=== PATIENT | female | born 1940 | race Caucasian/White ===

== ENCOUNTER 2018-06-18 12:37 | Inpatient (IN) | payer MEDICARE, OTHER ==
[~2018-06-18] VITALS: Ht 152.4 cm; Wt 53.0 kg
[2018-06-18] MEDS ORDERED: LACTULOSE 30ML CUP PO PRN (19:00)
[2018-06-18] MEDS ORDERED: BISACODYL 10 MG SUPP PR PRN (19:00)
[2018-06-18] MEDS ORDERED: PENDING SANTYL ORDER FOR WOUND CARE XX PRN (19:00)
[2018-06-18 19:08] VITALS: BP 147/68; PULSE 95; RESP 18
[2018-06-18] MEDS ORDERED: METOPROLOL 5 MG INJ IV PRN (20:00)
[2018-06-18] MEDS ORDERED: LORAZEPAM 2 MG INJ IV PRN (20:00)
[2018-06-18] MEDS ORDERED: COLLAGENASE 5 GM (UD JAR) TOP PRN (20:00)
[2018-06-18] MEDS ORDERED: ALBUTEROL/IPRATROPIUM (NEB) 3 ML AMP HHN PRN (20:00)
[2018-06-18] MEDS ORDERED: DIPHENHYDRAMINE 50 MG INJ IV PRN (20:00)
[2018-06-18] MEDS ORDERED: GUAIFENESIN 20 MG/ML 5ML CUP PO PRN (20:00)
[2018-06-18] MEDS ORDERED: NITROGLYCERIN 2% 1 GM OINT PKT TD PRN (20:00)
[2018-06-18] MEDS ORDERED: morphine 2 MG INJ IV PRN (20:00)
[2018-06-18] MEDS ORDERED: ONDANSETRON 4 MG INJ IV PRN (20:00)
[2018-06-18] MEDS ORDERED: NYSTATIN 30 GM POWDER BTL TOP PRN (20:00)
[2018-06-18] MEDS ORDERED: PETROLATUM 28.35 GM JELLY TOP PRN (20:30)
[2018-06-18] MEDS: DOCUSATE SODIUM 100 MG CAP PO SCH (21:00)
[2018-06-18] MEDS: INSULIN ASPART [NOVOLOG] 3 ML PEN SC SCH (21:00)
[2018-06-18] MEDS ORDERED: VITAMIN A & D 5 GM OINT PACKET TOP SCH (21:00)
[2018-06-18] MEDS: SENNA TAB PO SCH (21:00)
[2018-06-18] MEDS ORDERED: GLUCOSE GEL 15 GRAM TUBE BUCCAL PRN (21:30)
[2018-06-18] MEDS ORDERED: DEXTROSE 50% 50 ML SYRINGE IV PRN ×2 (21:30)
[2018-06-18] MEDS ORDERED: GLUCOSE GEL 15 GRAM TUBE PO PRN ×2 (21:30)
[2018-06-18] MEDS ORDERED: GLUCAGON 1 MG INJ IM PRN (21:30)
[2018-06-18] MEDS: LACTOBACILLUS RHAMNOSUS CAP PO SCH (21:37)
[2018-06-18] MEDS: ALBUTEROL/IPRATROPIUM (NEB) 3 ML AMP HHN SCH (21:39)
[2018-06-18] MEDS: PETROLATUM 28.35 GM JELLY TOP SCH (21:45)
[2018-06-18] MEDS: COLLAGENASE 5 GM (UD JAR) TOP SCH (21:48)
[2018-06-18] MEDS: DESMOPRESSIN 0.01% 5 ML NASAL NASAL SCH (22:00)
[2018-06-18] MEDS: AMOXICILLIN (50 MG/ML PO SYG) PO SCH (22:49)
[2018-06-18] MEDS: NYSTATIN 30 GM POWDER BTL TOP SCH (22:49)
[2018-06-19] MEDS: ALBUTEROL/IPRATROPIUM (NEB) 3 ML AMP HHN SCH ×4 (01:53→19:33)
[2018-06-19 02:00] VITALS: BP 138/65; PULSE 90; RESP 18
[2018-06-19] MEDS: LANSOPRAZOLE 30 MG CAP PO SCH (06:52)
[2018-06-19] MEDS: LEVOTHYROXINE 50 MCG TAB PO SCH (06:53)
[2018-06-19 07:00] VITALS: BP 136/52; PULSE 97; RESP 18
[2018-06-19] MEDS: SEVELAMER CARBONATE 0.8 GM PKT PO SCH ×3 (08:53→17:59)
[2018-06-19] MEDS: CALCIUM ACETATE 667 MG CAP PO SCH ×3 (08:54→17:59)
[2018-06-19] MEDS: DESMOPRESSIN 0.01% 5 ML NASAL NASAL SCH ×2 (08:54→21:00)
[2018-06-19] MEDS: VITAMIN B COMPLEX/VIT C CAP PO SCH (08:54)
[2018-06-19] MEDS: FLUCONAZOLE 100 MG TAB PO SCH (08:54)
[2018-06-19] MEDS: LACTOBACILLUS RHAMNOSUS CAP PO SCH ×2 (08:55→21:04)
[2018-06-19] MEDS: AMLODIPINE 5 MG TAB PO SCH (08:55)
[2018-06-19] MEDS: FOLIC ACID 1 MG TAB PO SCH (08:55)
[2018-06-19] MEDS: DOCUSATE SODIUM 100 MG CAP PO SCH ×2 (08:55→21:04)
[2018-06-19] MEDS: SERTRALINE 50 MG TAB PO SCH (08:55)
[2018-06-19] MEDS: NEBIVOLOL 5 MG TAB PO SCH (08:56)
[2018-06-19] MEDS: COLLAGENASE 5 GM (UD JAR) TOP SCH ×2 (09:03→21:23)
[2018-06-19] MEDS: PETROLATUM 28.35 GM JELLY TOP SCH ×2 (09:03→21:32)
[2018-06-19] MEDS: INSULIN ASPART [NOVOLOG] 3 ML PEN SC SCH ×4 (09:14→21:00)
[2018-06-19] MEDS: AMOXICILLIN (50 MG/ML PO SYG) PO SCH ×2 (10:44→21:13)
--- NOTE | 2018-06-19 10:51 | HP ---
DATE OF ADMISSION: 06/18/2018 CHIEF COMPLAINT: Critical care myopathy, respiratory failure, end-stage renal disease, UTI. HISTORY OF PRESENT ILLNESS: This is a 78-year-old female with a past medical history of diabetes, hy pertension, history of CKD stage IV/V, who was initially admitted to outside hospital in [facility]. The patient during that admission was diagnosed with pneumonia, was in CHF and heart fail ure. The patient, while in [place], was initiated on hemodialysis. The patient had a recent AV fistu la placed in the left upper extremity in preparation for dialysis. However, the patient was not init iated on dialysis prior to admission to [facility]. While in [place], the patient was also treat ed with antibiotics, steroids. The patient, however, had a decline in her respiratory status, requir ing intubation. The patient was eventually extubated and was transferred to [facility] for continued care. While in [place], the patient continued antibiotic therapy for pneumonia. The patient was also diagnosed with urinary tract infection. The patient was also on intermittent dialys is during the course in [place]. The patient, however, had a significant decline in premorbid conditi ons. Also, the patient developed critical care myopathy during her hospital course and was evaluated and transferred to [facility] acute rehab for continued care. Please note, the patient while at [place] was also diagnosed with a right upper extremity DVT, felt to be secondary to IV line. The patient was seen by vascular surgeon. Recommendation was to monitor, to elevate the upper extremity. There was no plan for antiplatelet therapy as the patient has a prev ious history of GI bleeding and peptic ulcer disease. PAST MEDICAL HISTORY: See above. History of diabetes, hypertension, history of end-stage renal dise ase, history of anemia, mineral bone disorder, history of peptic ulcer disease. PAST SURGICAL HISTORY: Status post AV fistula. FAMILY HISTORY: No family history of kidney disease. SOCIAL HISTORY: Does not drink, smoke or do drugs. MEDICATIONS: The patient's medications have been reviewed. ALLERGIES: PLEASE SEE LIST. REVIEW OF SYSTEMS: A 14-point review of systems was conducted. Pertinent positives stated in the HP I, otherwise negative. PHYSICAL EXAMINATION: VITAL SIGNS: Blood pressure is 136/52, respirations 18, pulse 97, temperature 98.2. HEENT: Head is normocephalic. NECK: Supple. HEART: Regular rate. LUNGS: Show diminished breath sounds at the base. ABDOMEN: Soft, nontender to palpation. No rebound or guarding. EXTREMITIES: Negative for clubbing, cyanosis. Positive edema in the right upper extremity. DERMATOLOGIC: Positive ecchymoses. NEUROLOGIC: No focal deficits. The patient's medications have been reviewed. LABORATORY DATA: Shows sodium 138, potassium 3.6, BUN 61, creatinine 3.73. White count 4.6, hemoglo bin 8.6, platelet count 266. Urinalysis was reviewed. Noted pyuria. ASSESSMENT AND PLAN: This is a 78-year-old female who presents with: 1. Critical illness myopathy. Plan is for the patient to undergo physical therapy and occupational therapy. Will follow up per acute rehabilitation. 2. End-stage renal disease. Will continue the patient on intermittent hemodialysis. 3. Anemia. Monitor hemoglobin and hematocrit levels. Continue Epogen. 4. Mineral bone disorder. Monitor calcium and phosphorus levels. Continue phosphatase binders. 5. Right upper extremity deep venous thrombosis. The patient was seen by vascular surgery. No plan for anticoagulation at this time. Will continue to monitor. 6. Acute respiratory failure secondary to pneumonia. The patient is clinically improved. Continue to monitor. Continue bronchodilators. 7. History of heart failure. Continue medical management. Continue ultrafiltration dialysis. 8. Diabetes. Continue current insulin regimen. 9. Dysphagia. Continue modified diet. 10. Epistaxis secondary to uremia, improved. 11. Urinary tract infection. Continue current antibiotic regimen. 12. Gastrointestinal and deep venous thrombosis prophylaxis. Please note, I spent an additional 30 minutes in [id number] time discussing code status. The edison nt is FULL CODE. Dictated By: ARTHUR HUERTA DO NR/NTS Conf#: [id number] DID#: [id number] CC: KOLBY PEARSON MD;*EndCC*
--- NOTE | 2018-06-19 11:34 | CONS ---
DATE OF ADMISSION: 06/18/2018 DATE OF CONSULTATION: 06/19/2018 REHABILITATION POST ADMISSION PHYSICIAN EVALUATION REHABILITATION IMPAIRMENT CATEGORY: Critical illness myopathy. ACTIVE COMORBIDITIES: 1. Pulmonary debility status post acute respiratory failure, pneumonia status post intubation and extubation. 2. Status post CHF. 3. End-stage renal disease, on hemodialysis. 4. Dysphagia. 5. Diabetes mellitus. 6. Stage III sacral decubitus ulcer. 7. Impairments in self-care and mobility. HISTORY OF PRESENT ILLNESS: The patient is a pleasant 78-year-old female with a history of multiple medical comorbidities, who was initially admitted to [facility] for acute respiratory failure and pneumonia in addition to CHF. The patient did receive AV graft placement for left upper extremity dialysis, for which she began at [facility]. The patient's pulmonary status worsened and the patient did require intubation. The patient was eventually extubated. The patient was also followed closely for her dysphagia. The patient eventually was transferred to [facility] for continued care. The patient noted to have a generalized proximal weakness and presumed to have critical illness myopathy. The patient has now been cleared to transfer to the rehabilitation unit for comprehensive interdisciplinary rehab care. FUNCTIONAL HISTORY: Prior to recent events, she was independent in self-care tasks and mobility. Currently, she requires moderate assist for self-care and mobility tasks. FAMILY AND SOCIAL HISTORY: The patient lives at home with family in a first floor apartment and hopes to return there upon discharge. PAST MEDICAL HISTORY: 1. Diabetes mellitus type 2. 2. CHF. 3. Hypertension. 4. Chronic kidney disease with recent start of dialysis. 5. History of pneumonia. CURRENT MEDICATIONS: 1. Tylenol p.r.n. 2. Albuterol inhaler. 3. Norvasc 5 mg p.o. daily. 4. Amoxicillin. 5. PhosLo 667 mg with meals. 6. Catapres p.r.n. 7. Santyl topically. 8. DDAVP nasal spray. 9. Benadryl p.r.n. 10. Diflucan 100 mg p.o. daily. 11. Folic acid 1 mg p.o. daily. 12. Insulin sliding scale. 13. Prevacid 30 mg p.o. daily. 14. Synthroid 50 mcg p.o. q.a.m. 15. Lopressor 5 mg p.r.n. 16. Bystolic 5 mg p.o. daily. 17. Zoloft 50 mg p.o. daily. 18. Renvela 0.8 mg p.o. at bedtime. ALLERGIES: CLINDAMYCIN AND CLAVULANIC ACID AND AMOXICILLIN. PHYSICAL EXAMINATION: VITAL SIGNS: The patient is currently afebrile with stable vital signs. HEENT: Extraocular motion intact. Oropharynx clear. NECK: Supple. LUNGS: Clear anteriorly. CARDIAC: S1, S2. ABDOMEN: Soft, nontender, positive bowel sounds. NEUROLOGIC: She is awake and alert. She will follow simple 1-step commands. She demonstrates antigravity strength in bilateral upper extremity and lower extremity. PLAN: The patient has been admitted for comprehensive interdisciplinary acute rehab and is anticipated to tolerate 3 hours of daily therapy in divided doses for at least 5/7 days a week. The treatment plan will include: 1. Physical therapy to focus on bed mobility, transfers, and household ambulation with the goal of having the patient reach a standby assist level. 2. Occupational therapy to focus on hygiene, grooming, dressing, bathing, and toileting activities with the goal of having the patient reach standby assist level. 3. Speech therapy for dysphagia management. 4. Rehabilitation nursing for carryover of therapeutic interventions, the goal of continent of bowel and bladder, and the goal of the patient and family education with regards to the aforementioned issues. REHABILITATION BARRIER: Integument. INTERVENTION FOR BARRIER: Wound care. I acknowledge that I performed a full physical examination on this patient within 24 hours of admission to the rehabilitation unit. I believe the patient is a good candidate for comprehensive interdisciplinary rehab care and is anticipated to make reasonable goals in a reasonable period of time as outlined above. Dictated By: KOLBY YUSUF/LEXUS Conf#: [id number] DID#: [id number] MTDD
[2018-06-19] MEDS: NYSTATIN 30 GM POWDER BTL TOP SCH ×2 (11:39→21:27)
[2018-06-19 14:00] VITALS: BP 167/79; PULSE 86; RESP 18
--- NOTE | 2018-06-19 16:48 | CONS ---
Assessment/Plan Assessment/Plan Hospital Course (Demo Recall) No acute changes overnight patient is alert sitting up in a chair no fevers overnight, daughters at bedside WBC 4.6 no shift no bands Indwelling's left upper extremity AV graft Antimicrobials: Amoxicillin Physical examination: This is a fragile well-developed elderly woman who is alert in no distress. Head atraumatic normocephalic sclera nonicteric. Neck is supple. Chest rise symmetrical breath sounds clear. Heart S1-S2 abdomen soft bowel sounds present. Extremities without cyanosis Patient has dependent edema of her feet Assessment: 1. Resolving UTI with urine culture grew enterococcus 2. Status post pneumonia with respiratory failure 3. CHF 4. Diabetes 5. End-stage renal disease, hemodialysis dependent 6. Dementia Plan: Patient remains stable continue antibiotics for 2 more days, continue acute rehab Consultation Date/Type/Reason Admit Date/Time Jun 18, 2018 at 18:06 Initial Consult Date Type of Consult id Date/Time of Note DATE: 06/19/18 TIME: 16:47 Exam/Review of Systems Exam Vitals Vital Signs Date Temp Pulse Resp B/P (MAP) Pulse Ox O2 O2 Flow FiO2 Time Delivery Rate 06/19/18 89 18 95 21 16:23 06/19/18 97.6 167/79 Room Air 14:00 (108) Intake and Output 06/18/18 06/18/18 06/19/18 1515:00 23:00 07:00 OutputOutput Total 50 ml BalanceBalance -50 ml Results Result Diagram: 06/19/18 0650 06/19/18 0650 Results 24hrs Laboratory Tests Test 06/18/18 20:00 06/18/18 21:32 06/19/18 06:50 06/19/18 07:25 Urine Color CHER Urine Clarity CLOUDY A Urine pH 5.0 Urine Specific 1.017 [place] Urine Ketones NEGATIVE Urine Nitrite NEGATIVE Urine Bilirubin NEGATIVE Urine Urobilinogen NEGATIVE Urine Leukocyte TRACE A Esterase Urine Microscopic 158 H RBC Urine Microscopic 10 H WBC Urine Squamous FEW Epithelial Cells Urine Transitional FEW A Epithelial Cells Urine Amorphous FEW A Crystals Urine Bacteria FEW A Urine Hemoglobin 1+ H Urine Glucose 1+ H Urine Total Protein 3+ H Bedside Glucose 123 144 White Blood Count 4.6 L Red Blood Count 3.18 L Hemoglobin 8.6 L Hematocrit 28.1 L Mean Corpuscular 88.4 Volume Mean Corpuscular 27.0 L Hemoglobin Mean Corpuscular 30.6 L Hemoglobin Concent Red Cell 15.5 H Distribution Width Platelet Count 266 Mean Platelet Volume 9.4 Immature 0.400 Granulocytes % Neutrophils % 70.3 Lymphocytes % 20.8 Monocytes % 7.0 Eosinophils % 1.1 Basophils % 0.4 Nucleated Red Blood 0.0 Cells % Immature 0.020 Granulocytes # Neutrophils # 3.2 Lymphocytes # 1.0 Monocytes # 0.3 Eosinophils # 0.1 Basophils # 0.0 Nucleated Red Blood 0.0 Cells # Sodium Level 138 Potassium Level 3.6 Chloride Level 100 Carbon Dioxide Level 27 Anion Gap 11 Blood Urea Nitrogen 61 H Creatinine 3.73 H Est Glomerular Filtrat Rate mL/min Glucose Level 142 Calcium Level 9.4 Total Bilirubin 0.2 Direct Bilirubin 0.00 Indirect Bilirubin 0.2 Aspartate Amino 21 Transf (AST/SGOT) Alanine 19 Aminotransferase (AL T/SGPT) Alkaline Phosphatase 85 Total Protein 7.2 Albumin 3.4 Globulin 3.80 H Albumin/Globulin 0.89 Ratio Test 06/19/18 11:41 Bedside Glucose 320 H Medications Medication Current Medications Docusate Sodium (Colace) 100 mg BID PO Last administered on 06/19/18at 08:55; Admin Dose 100 MG; Start 06/18/18 at 21:00 Senna (Senokot) 1 tab HS PO ; Start 06/18/18 at 21:00 Lactulose (Enulose) 20 gm DAILY PRN PO CONSTIPATION; Start 06/18/18 at 19:00 Bisacodyl (Dulcolax Supp) 10 mg DAILY PRN [place] CONSTIPATION; Start 06/18/18 at 19:00 Acetaminophen (Tylenol Tab) 650 mg Q4H PRN PO MILD PAIN 1-3; Start 06/18/18 at 19:00 Miscellaneous Information (Pending Santyl Order For Wound Care) This patient mcclain... PRN PRN XX WOUND CARE; Start 06/18/18 at 19:00 Hydralazine HCl (Apresoline) 100 mg Q8 PO Last administered on 06/19/18at 13:39; Admin Dose 100 MG; Start 06/18/18 at 20:00 Insulin Aspart (Novolog Insulin Pen) NOVOLOG *MILD* ALGORITHM WITH MEALS BEDTIME SC Last administered on 06/19/18at 11:45; Admin Dose 5 UNIT; Start 06/18/18 at 21:00 Lactobacillus Acidophilus/ Rhamnosus (Culturelle) 1 cap BID PO Last administered on 06/19/18 08:55; Admin Dose 1 CAP; Start 06/18/18 at 21:00 Nystatin (Nystatin Powder) 1 applic BID TOP Last administered on 06/19/18 11:39; Admin Dose 1 APPLIC; Start 06/18/18 at 21:00 Nystatin (Nystatin Powder) 1 applic NOTE PRN TOP NOTE; Start 06/18/18 at 20:00 Albuterol/ Ipratropium (Duoneb) 3 ml Q6H RESP THERAPY HHN Last administered on 06/19/18 16:21; Admin Dose 3 ML; Start 06/18/18 at 21:00 Albuterol/ Ipratropium (Duoneb) 3 ml Q6H RESP THERAPY PRN HHN SHORTNESS OF BREATH; Start 06/18/18 at 20:00 Amlodipine Besylate (Norvasc) 5 mg DAILY PO Last administered on 06/19/18 08:55; Admin Dose 5 MG; Start 06/19/18 at 09:00 Amoxicillin (Amoxicillin Susp) 500 mg Q12 PO Last administered on 06/19/18 10:44; Admin Dose 500 MG; Start 06/18/18 at 22:00; Stop 06/22/18 at 09:01 Calcium Acetate (Phoslo) 667 mg WITH MEALS PO Last administered on 06/19/18 11:39; Admin Dose 667 MG; Start 06/19/18 at 07:35 Clonidine (Catapres) 0.1 mg Q6H PRN PO SBP ABOVE 170; Start 06/18/18 at 20:00 Collagenase (Santyl) 1 applic Q12 TOP Last administered on 06/19/18 09:03; Admin Dose 1 APPLIC; Start 06/18/18 at 21:00 Collagenase (Santyl) 1 applic NOTE PRN TOP NOTE Last administered on 06/18/18 21:44; Admin Dose 1 APPLIC; Start 06/18/18 at 20:00 Desmopressin Acetate (Ddavp Nasal) 4 spray BID NASAL ; Start 06/18/18 at 22:00 Diphenhydramine HCl (Benadryl) 25 mg Q4H PRN IV ITCHING; Start 06/18/18 at 20:00 Fluconazole (Diflucan) 100 mg DAILY PO Last administered on 06/19/18 08:54; Admin Dose 100 MG; Start 06/19/18 at 09:00 Folic Acid (Folic Acid) 1 mg DAILY PO Last administered on 06/19/18 08:55; Admin Dose 1 MG; Start 06/19/18 at 09:00 Guaifenesin (Robitussin Liquid Cup) 100 mg Q6 PRN PO COUGH; Start 06/18/18 at 20:00 Lansoprazole (Prevacid) 30 mg DAILY@06 PO Last administered on 06/19/18at 06:52; Admin Dose 30 MG; Start 06/19/18 at 06:00 Levothyroxine Sodium (Synthroid) 50 mcg BEFORE BREAKFAST PO Last administered on 06/19/18 06:53; Admin Dose 50 MCG; Start 06/19/18 at 07:00 Lorazepam (Ativan) 1 mg Q6H PRN IV ANXIETY; Start 06/18/18 at 20:00 Morphine Sulfate (morphine) 2 mg Q4H PRN IV SEVERE PAIN LEVEL 7-10; Start 06/18/18 at 20:00 Miscellaneous Medication (Bystolic) 5 mg DAILY PO Last administered on 06/19/18 08:56; Admin Dose 5 MG; Start 06/19/18 at 09:00 Nitroglycerin (Nitroglycerin 2% Oint) 1 inch Q6 PRN TD CHEST PAIN; Start 06/18/18 at 20:00 Ondansetron HCl (Zofran Inj) 4 mg Q6H PRN IV NAUSEA AND/OR VOMITING; Start 06/18/18 at 20:00 Sertraline HCl (Zoloft) 50 mg DAILY PO Last administered on 06/19/18at 08:55; Admin Dose 50 MG; Start 06/19/18 at 09:00 Sevelamer Carbonate (Renvela) 0.8 gm WITH MEALS PO Last administered on 06/19/18at 11:39; Admin Dose 0.8 GM; Start 06/19/18 at 07:35 Petrolatum (Vaseline) 1 applic NOTE PRN TOP NOTE; Start 06/18/18 at 20:30 Vitamin B Complex/ Vitamin C (Berocca) 1 cap DAILY PO Last administered on 06/19/18at 08:54; Admin Dose 1 CAP; Start 06/19/18 at 09:00 Petrolatum (Vaseline) 1 applic BID TOP Last administered on 06/19/18at 09:03; Admin Dose 1 APPLIC; Start 06/18/18 at 21:00 Miscellaneous Information 1 ea NOTE XX ; Start 06/18/18 at 21:30 Glucose (Glutose) 15 gm Q15M PRN PO DECREASED GLUCOSE; Start 06/18/18 at 21:30 Glucose (Glutose) 22.5 gm Q15M PRN PO DECREASED GLUCOSE; Start 06/18/18 at 21:30 Dextrose (D50w Syringe) 25 ml Q15M PRN IV DECREASED GLUCOSE; Start 06/18/18 at 21:30 Dextrose (D50w Syringe) 50 ml Q15M PRN IV DECREASED GLUCOSE; Start 06/18/18 at 21:30 Glucagon (Glucagen) 1 mg Q15M PRN IM DECREASED GLUCOSE; Start 06/18/18 at 21:30 Glucose (Glutose) 15 gm Q15M PRN BUCCAL DECREASED GLUCOSE; Start 06/18/18 at 21:30 Epoetin Festus (Epogen (Esrd)) 10,000 units MoWeFr@17 SC ; Start 06/20/18 at 17:00 Memantine (Namenda) 5 mg DAILY PO ; Start 06/20/18 at 09:00 Ascorbic Acid (Vitamin C) 500 mg DAILY PO ; Start 06/20/18 at 09:00 Zinc Sulfate (Zinc Sulfate) 220 mg DAILY PO ; Start 06/20/18 at 09:00 Multivitamins Therapeutic (Theragran) 1 tab DAILY PO ; Start 06/20/18 at 09:00 TANNER DREW NP Jun 19, 2018 16:48
[2018-06-19] MEDS: SENNA TAB PO SCH (21:04)
[2018-06-20] VITALS (17 sets, daily range): BP systolic 96–176; BP diastolic 46–83; PULSE 74–94; RESP 16–18
[2018-06-20] MEDS: ALBUTEROL/IPRATROPIUM (NEB) 3 ML AMP HHN SCH ×4 (01:10→20:51)
[2018-06-20] MEDS: LANSOPRAZOLE 30 MG CAP PO SCH (06:19)
[2018-06-20] MEDS: LEVOTHYROXINE 50 MCG TAB PO SCH (06:19)
--- NOTE | 2018-06-20 07:46 | PN ---
Date/Time of Note Date/Time of Note DATE: 06/20/18 TIME: 07:44 Subjective AWAKE ALERT, DENIES SOB, PO GOOD Objective Vital Signs Date Temp Pulse Resp B/P (MAP) Pulse Ox O2 O2 Flow FiO2 Time Delivery Rate 06/20/18 85 18 95 21 01:10 06/19/18 97.6 167/79 Room Air 14:00 (108) Intake and Output 06/19/18 06/19/18 06/20/18 1515:00 23:00 07:00 IntakeIntake Total 550 ml 1200 ml OutputOutput Total 800 ml 250 ml BalanceBalance 550 ml 400 ml -250 ml Exam LUNGS CTA COR RRR MOTOR FAIR CLOF XT ANF BED MOB MOD A Results/Medications Result Diagram: 06/20/18 0708 06/20/18 0708 Results 24 hrs Laboratory Tests Test 06/19/18 11:41 06/19/18 21:00 06/20/18 07:08 Bedside Glucose 320 H 135 White Blood Count 4.3 L Red Blood Count 3.05 L Hemoglobin 8.3 L Hematocrit 26.8 L Mean Corpuscular Volume 87.9 Mean Corpuscular Hemoglobin 27.2 L Mean Corpuscular Hemoglobin Concent 31.0 L Red Cell Distribution Width 15.5 H Platelet Count 219 Mean Platelet Volume 9.4 Immature Granulocytes % 0.500 H Neutrophils % 67.7 Lymphocytes % 23.2 Monocytes % 7.0 Eosinophils % 1.4 Basophils % 0.2 Nucleated Red Blood Cells % 0.0 Immature Granulocytes # 0.020 Neutrophils # 2.9 Lymphocytes # 1.0 Monocytes # 0.3 Eosinophils # 0.1 Basophils # 0.0 Nucleated Red Blood Cells # 0.0 Sodium Level 136 Potassium Level 3.6 Chloride Level 98 Carbon Dioxide Level 23 Anion Gap 15 H Blood Urea Nitrogen 83 H Creatinine 4.00 H Est Glomerular Filtrat Rate mL/min Glucose Level 154 Calcium Level 9.4 Phosphorus Level 4.6 Magnesium Level 2.0 Medications Current Medications Docusate Sodium (Colace) 100 mg BID PO Last administered on 06/19/18at 21:04; Admin Dose 100 MG; Start 06/18/18 at 21:00 Senna (Senokot) 1 tab HS PO Last administered on 06/19/18at 21:04; Admin Dose 1 TAB; Start 06/18/18 at 21:00 Lactulose (Enulose) 20 gm DAILY PRN PO CONSTIPATION; Start 06/18/18 at 19:00 Bisacodyl (Dulcolax Supp) 10 mg DAILY PRN [place] CONSTIPATION; Start 06/18/18 at 19:00 Acetaminophen (Tylenol Tab) 650 mg Q4H PRN PO MILD PAIN 1-3; Start 06/18/18 at 19:00 Miscellaneous Information (Pending Santyl Order For Wound Care) This patient mcclain... PRN PRN XX WOUND CARE; Start 06/18/18 at 19:00 Hydralazine HCl (Apresoline) 100 mg Q8 PO Last administered on 06/20/18at 06:19; Admin Dose 100 MG; Start 06/18/18 at 20:00 Insulin Aspart (Novolog Insulin Pen) NOVOLOG *MILD* ALGORITHM WITH MEALS BEDTIME SC Last administered on 06/19/18at 18:00; Admin Dose 2 UNIT; Start 06/18/18 at 21:00 Lactobacillus Acidophilus/ Rhamnosus (Culturelle) 1 cap BID PO Last administered on 06/19/18at 21:04; Admin Dose 1 CAP; Start 06/18/18 at 21:00 Nystatin (Nystatin Powder) 1 applic BID TOP Last administered on 06/19/18at 21:27; Admin Dose 1 APPLIC; Start 06/18/18 at 21:00 Nystatin (Nystatin Powder) 1 applic NOTE PRN TOP NOTE; Start 06/18/18 at 20:00 Albuterol/ Ipratropium (Duoneb) 3 ml Q6H RESP THERAPY HHN Last administered on 06/20/18at 01:10; Admin Dose 3 ML; Start 06/18/18 at 21:00 Albuterol/ Ipratropium (Duoneb) 3 ml Q6H RESP THERAPY PRN HHN SHORTNESS OF BREATH; Start 06/18/18 at 20:00 Amlodipine Besylate (Norvasc) 5 mg DAILY PO Last administered on 06/19/18at 08:55; Admin Dose 5 MG; Start 06/19/18 at 09:00 Amoxicillin (Amoxicillin Susp) 500 mg Q12 PO Last administered on 06/19/18at 21:13; Admin Dose 500 MG; Start 06/18/18 at 22:00; Stop 06/22/18 at 09:01 Calcium Acetate (Phoslo) 667 mg WITH MEALS PO Last administered on 06/19/18at 17:59; Admin Dose 667 MG; Start 06/19/18 at 07:35 Clonidine (Catapres) 0.1 mg Q6H PRN PO SBP ABOVE 170; Start 06/18/18 at 20:00 Collagenase (Santyl) 1 applic Q12 TOP Last administered on 06/19/18at 21:23; Admin Dose 1 APPLIC; Start 06/18/18 at 21:00 Collagenase (Santyl) 1 applic NOTE PRN TOP NOTE Last administered on 06/18/18at 21:44; Admin Dose 1 APPLIC; Start 06/18/18 at 20:00 Desmopressin Acetate (Ddavp Nasal) 4 spray BID NASAL ; Start 06/18/18 at 22:00 Diphenhydramine HCl (Benadryl) 25 mg Q4H PRN IV ITCHING; Start 06/18/18 at 20:00 Fluconazole (Diflucan) 100 mg DAILY PO Last administered on 06/19/18at 08:54; Admin Dose 100 MG; Start 06/19/18 at 09:00 Folic Acid (Folic Acid) 1 mg DAILY PO Last administered on 06/19/18at 08:55; Admin Dose 1 MG; Start 06/19/18 at 09:00 Guaifenesin (Robitussin Liquid Cup) 100 mg Q6 PRN PO COUGH; Start 06/18/18 at 20:00 Lansoprazole (Prevacid) 30 mg DAILY@06 PO Last administered on 06/20/18at 06:19; Admin Dose 30 MG; Start 06/19/18 at 06:00 Levothyroxine Sodium (Synthroid) 50 mcg BEFORE BREAKFAST PO Last administered on 06/20/18at 06:19; Admin Dose 50 MCG; Start 06/19/18 at 07:00 Lorazepam (Ativan) 1 mg Q6H PRN IV ANXIETY; Start 06/18/18 at 20:00 Morphine Sulfate (morphine) 2 mg Q4H PRN IV SEVERE PAIN LEVEL 7-10; Start 06/18/18 at 20:00 Miscellaneous Medication (Bystolic) 5 mg DAILY PO Last administered on 06/19/18at 08:56; Admin Dose 5 MG; Start 06/19/18 at 09:00 Nitroglycerin (Nitroglycerin 2% Oint) 1 inch Q6 PRN TD CHEST PAIN; Start 06/18/18 at 20:00 Ondansetron HCl (Zofran Inj) 4 mg Q6H PRN IV NAUSEA AND/OR VOMITING; Start 06/18/18 at 20:00 Sertraline HCl (Zoloft) 50 mg DAILY PO Last administered on 06/19/18at 08:55; Admin Dose 50 MG; Start 06/19/18 at 09:00 Sevelamer Carbonate (Renvela) 0.8 gm WITH MEALS PO Last administered on 06/19/18at 17:59; Admin Dose 0.8 GM; Start 06/19/18 at 07:35 Petrolatum (Vaseline) 1 applic NOTE PRN TOP NOTE; Start 06/18/18 at 20:30 Vitamin B Complex/ Vitamin C (Berocca) 1 cap DAILY PO Last administered on 06/19/18at 08:54; Admin Dose 1 CAP; Start 06/19/18 at 09:00 Petrolatum (Vaseline) 1 applic BID TOP Last administered on 06/19/18at 21:32; Admin Dose 1 APPLIC; Start 06/18/18 at 21:00 Miscellaneous Information 1 ea NOTE XX ; Start 06/18/18 at 21:30 Glucose (Glutose) 15 gm Q15M PRN PO DECREASED GLUCOSE; Start 06/18/18 at 21:30 Glucose (Glutose) 22.5 gm Q15M PRN PO DECREASED GLUCOSE; Start 06/18/18 at 21:30 Dextrose (D50w Syringe) 25 ml Q15M PRN IV DECREASED GLUCOSE; Start 06/18/18 at 21:30 Dextrose (D50w Syringe) 50 ml Q15M PRN IV DECREASED GLUCOSE; Start 06/18/18 at 21:30 Glucagon (Glucagen) 1 mg Q15M PRN IM DECREASED GLUCOSE; Start 06/18/18 at 21:30 Glucose (Glutose) 15 gm Q15M PRN BUCCAL DECREASED GLUCOSE; Start 06/18/18 at 21:30 Epoetin Festus (Epogen (Esrd)) 10,000 units MoWeFr@17 SC ; Start 06/20/18 at 17:00 Memantine (Namenda) 5 mg DAILY PO ; Start 06/20/18 at 09:00 Ascorbic Acid (Vitamin C) 500 mg DAILY PO ; Start 06/20/18 at 09:00 Zinc Sulfate (Zinc Sulfate) 220 mg DAILY PO ; Start 06/20/18 at 09:00 Multivitamins Therapeutic (Theragran) 1 tab DAILY PO ; Start 06/20/18 at 09:00 Assessment/Plan Additional Assessment/Plan 1. CRITICAL ILLNESS MYOPATHTY - CONT THERAPEUTIC INTERVENTIONS 1.5 Pulmonary debility status post acute respiratory failure, pneumonia status post intubation and extubation. 2. Status post CHF. 3. End-stage renal disease, on hemodialysis. 4. Dysphagia. 5. Diabetes mellitus. 6. Stage III sacral decubitus ulcer.PRESSURE RELIEF , WOUND CARE NURSE 7. Impairments in self-care and mobility 8. ANEMIA HCT 28 TO 27 , MONITOR POSSIBLE TRANSFUSE LAURA PEARSON MD Jun 20, 2018 07:46
[2018-06-20] MEDS: INSULIN ASPART [NOVOLOG] 3 ML PEN SC SCH ×4 (08:24→22:19)
[2018-06-20] MEDS: SEVELAMER CARBONATE 0.8 GM PKT PO SCH ×4 (08:25→20:08)
[2018-06-20] MEDS: CALCIUM ACETATE 667 MG CAP PO SCH ×4 (08:25→20:07)
[2018-06-20] MEDS: COLLAGENASE 5 GM (UD JAR) TOP SCH ×2 (09:00→22:16)
[2018-06-20] MEDS: NEBIVOLOL 5 MG TAB PO SCH (09:00)
[2018-06-20] MEDS: DESMOPRESSIN 0.01% 5 ML NASAL NASAL SCH ×2 (09:00→21:00)
[2018-06-20] MEDS: PETROLATUM 28.35 GM JELLY TOP SCH ×2 (09:00→22:23)
[2018-06-20] MEDS: SERTRALINE 50 MG TAB PO SCH ×2 (09:00→20:07)
[2018-06-20] MEDS: DOCUSATE SODIUM 100 MG CAP PO SCH ×2 (09:41→22:06)
[2018-06-20] MEDS: FOLIC ACID 1 MG TAB PO SCH (09:42)
[2018-06-20] MEDS: MEMANTINE 5 MG TAB PO SCH (09:42)
[2018-06-20] MEDS: LACTOBACILLUS RHAMNOSUS CAP PO SCH ×2 (09:42→22:06)
[2018-06-20] MEDS: FLUCONAZOLE 100 MG TAB PO SCH (09:42)
[2018-06-20] MEDS: MULTIVITAMINS THERAPEUTIC TAB PO SCH (09:42)
[2018-06-20] MEDS: ASCORBIC ACID 500 MG TAB PO SCH (09:42)
--- NOTE | 2018-06-20 09:54 | PN ---
DATE: 06/20/2018 SUBJECTIVE: The patient is stable, no events overnight. OBJECTIVE: VITAL SIGNS: Blood pressure is 167/79, respirations 18, pulse 86, temperature is 97.6. HEENT: Head is normocephalic. NECK: Supple. HEART: Regular rate. LUNGS: Show diminished breath sounds at the base. ABDOMEN: Soft, nontender to palpation without rebound or guarding. EXTREMITIES: Negative for clubbing, cyanosis, no edema. DERMATOLOGIC: No rashes. MUSCULOSKELETAL: No joint effusion. NEUROLOGIC: No change in exam. MEDICATIONS: Reviewed. LABORATORY DATA: Reviewed. 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 2. End-stage renal disease. Plan is for hemodialysis today. 3. Anemia. Continue to monitor hemoglobin and hematocrit levels. Continue Epogen. 4. Mineral bone disorder. Monitor calcium and phosphorus levels. Continue phosphate binders. 5. Right upper extremity deep vein thrombosis. The patient was seen by vascular surgery, no plan fo r anticoagulation. 6. Acute respiratory failure secondary to pneumonia. The patient is clinically improved. Continue to monitor. Continue bronchodilators. 7. History of heart failure. Continue medical management. Continue ultrafiltration with dialysis. 8. Diabetes. Continue current insulin regimen. 9. Dysphagia. Continue modified diet. 10. Epistaxis, resolved. 11. Urinary tract infection. Continue current antibiotic regimen. 12. Gastrointestinal and deep vein thrombosis prophylaxis. Dictated By: ARTHUR HUERTA DO NR/NTS Conf#: [id number] DID#: [id number] CC: FAY LARES DO; KOLBY PEARSON MD;*EndCC*
[2018-06-20] MEDS: ZINC SULFATE 220 MG CAP PO SCH (11:17)
[2018-06-20] MEDS: VITAMIN B COMPLEX/VIT C CAP PO SCH (11:17)
[2018-06-20] MEDS: AMOXICILLIN (50 MG/ML PO SYG) PO SCH ×2 (11:17→22:07)
[2018-06-20] MEDS: NYSTATIN 30 GM POWDER BTL TOP SCH ×2 (11:18→22:13)
[2018-06-20] MEDS: AMLODIPINE 5 MG TAB PO SCH (11:23)
[2018-06-20] MEDS ORDERED: EMLA XX PRN (14:30)
--- NOTE | 2018-06-20 15:02 | CONS ---
Assessment/Plan Assessment/Plan Hospital Course (Demo Recall) No acute changes overnight patient is alert feels good, daughters at bedside Indwelling's left upper extremity AV graft Antimicrobials: Amoxicillin Physical examination: This is a fragile well-developed elderly woman who is alert in no distress. Head atraumatic normocephalic sclera nonicteric. Neck is supple. Chest rise symmetrical breath sounds clear. Heart S1-S2 abdomen soft bowel sounds present. Extremities without cyanosis Patient has dependent edema of her feet Assessment: 1. Resolving UTI with urine culture grew pedoicoccus 2. Status post pneumonia with respiratory failure 3. CHF 4. Diabetes 5. End-stage renal disease, hemodialysis dependent 6. Dementia Plan: Patient remains stable, will give last abx dose tomorrow, continue acute rehab DW daughters at bedside Consultation Date/Type/Reason Admit Date/Time Jun 18, 2018 at 18:06 Initial Consult Date Type of Consult id Date/Time of Note DATE: 06/20/18 TIME: 15:01 Exam/Review of Systems Exam Vitals Vital Signs Date Temp Pulse Resp B/P (MAP) Pulse Ox O2 O2 Flow FiO2 Time Delivery Rate 06/20/18 83 18 96 21 08:46 06/20/18 98.4 165/69 Room Air 07:30 (101) Intake and Output 06/19/18 06/19/18 06/20/18 1515:00 23:00 07:00 IntakeIntake Total 550 ml 1200 ml OutputOutput Total 800 ml 250 ml BalanceBalance 550 ml 400 ml -250 ml Results Result Diagram: 06/20/18 0708 06/20/18 0708 Results 24hrs Laboratory Tests Test 06/19/18 17:33 06/19/18 21:00 06/20/18 07:04 06/20/18 07:08 Bedside Glucose 208 135 Hepatitis B Surface NEGATIVE Antigen Hepatitis B Surface POSITIVE H Antibody White Blood Count 4.3 L Red Blood Count 3.05 L Hemoglobin 8.3 L Hematocrit 26.8 L Mean Corpuscular 87.9 Volume Mean Corpuscular 27.2 L Hemoglobin Mean Corpuscular 31.0 L Hemoglobin Concent Red Cell 15.5 H Distribution Width Platelet Count 219 Mean Platelet Volume 9.4 Immature 0.500 H Granulocytes % Neutrophils % 67.7 Lymphocytes % 23.2 Monocytes % 7.0 Eosinophils % 1.4 Basophils % 0.2 Nucleated Red Blood 0.0 Cells % Immature 0.020 Granulocytes # Neutrophils # 2.9 Lymphocytes # 1.0 Monocytes # 0.3 Eosinophils # 0.1 Basophils # 0.0 Nucleated Red Blood 0.0 Cells # Sodium Level 136 Potassium Level 3.6 Chloride Level 98 Carbon Dioxide Level 23 Anion Gap 15 H Blood Urea Nitrogen 83 H Creatinine 4.00 H Est Glomerular Filtrat Rate mL/min Glucose Level 154 Calcium Level 9.4 Phosphorus Level 4.6 Magnesium Level 2.0 Test 06/20/18 08:18 06/20/18 12:28 Bedside Glucose 165 220 Medications Medication Current Medications Docusate Sodium (Colace) 100 mg BID PO Last administered on 06/20/18 09:41; Admin Dose 100 MG; Start 06/18/18 at 21:00 Senna (Senokot) 1 tab HS PO Last administered on 06/19/18 21:04; Admin Dose 1 TAB; Start 06/18/18 at 21:00 Lactulose (Enulose) 20 gm DAILY PRN PO CONSTIPATION; Start 06/18/18 at 19:00 Bisacodyl (Dulcolax Supp) 10 mg DAILY PRN SC CONSTIPATION; Start 06/18/18 at 19:00 Acetaminophen (Tylenol Tab) 650 mg Q4H PRN PO MILD PAIN 1-3; Start 06/18/18 at 19:00 Miscellaneous Information [facility] This patient mcclain... PRN PRN XX WOUND CARE; Start 06/18/18 at 19:00 Hydralazine HCl (Apresoline) 100 mg Q8 PO Last administered on 06/20/18at 14:37; Admin Dose 100 MG; Start 06/18/18 at 20:00 Insulin Aspart (Novolog Insulin Pen) NOVOLOG *MILD* ALGORITHM WITH MEALS BEDTI ME SC Last administered on 06/20/18 12:36; Admin Dose 2 UNIT; Start 06/18/18 at 21:00 Lactobacillus Acidophilus/ Rhamnosus (Culturelle) 1 cap BID PO Last administered on 06/20/18 09:42; Admin Dose 1 CAP; Start 06/18/18 at 21:00 Nystatin (Nystatin Powder) 1 applic BID TOP Last administered on 06/20/18 11:18; Admin Dose 1 APPLIC; Start 06/18/18 at 21:00 Nystatin (Nystatin Powder) 1 applic NOTE PRN TOP NOTE; Start 06/18/18 at 20:00 Albuterol/ Ipratropium (Duoneb) 3 ml Q6H RESP THERAPY HHN Last administered on 06/20/18at 08:36; Admin Dose 3 ML; Start 06/18/18 at 21:00 Albuterol/ Ipratropium (Duoneb) 3 ml Q6H RESP THERAPY PRN HHN SHORTNESS OF BREATH; Start 06/18/18 at 20:00 Amlodipine Besylate (Norvasc) 5 mg DAILY PO Last administered on 06/20/18 11:23; Admin Dose 5 MG; Start 06/19/18 at 09:00 Amoxicillin (Amoxicillin Susp) 500 mg Q12 PO Last administered on 06/20/18 11:17; Admin Dose 500 MG; Start 06/18/18 at 22:00; Stop 06/22/18 at 09:01 Calcium Acetate (Phoslo) 667 mg WITH MEALS PO Last administered on 06/20/18 12:37; Admin Dose 667 MG; Start 06/19/18 at 07:35 Clonidine (Catapres) 0.1 mg Q6H PRN PO SBP ABOVE 170; Start 06/18/18 at 20:00 Collagenase (Santyl) 1 applic Q12 TOP Last administered on 06/20/18 09:00; Admin Dose 1 APPLIC; Start 06/18/18 at 21:00 Collagenase (Santyl) 1 applic NOTE PRN TOP NOTE Last administered on 06/18/18at 21:44; Admin Dose 1 APPLIC; Start 06/18/18 at 20:00 Desmopressin Acetate (Ddavp Nasal) 4 spray BID NASAL ; Start 06/18/18 at 22:00 Diphenhydramine HCl (Benadryl) 25 mg Q4H PRN IV ITCHING; Start 06/18/18 at 20:00 Fluconazole (Diflucan) 100 mg DAILY PO Last administered on 06/20/18 09:42; Admin Dose 100 MG; Start 06/19/18 at 09:00 Folic Acid (Folic Acid) 1 mg DAILY PO Last administered on 06/20/18 09:42; Admin Dose 1 MG; Start 06/19/18 at 09:00 Guaifenesin (Robitussin Liquid Cup) 100 mg Q6 PRN PO COUGH; Start 06/18/18 at 20:00 Lansoprazole (Prevacid) 30 mg DAILY@06 PO Last administered on 06/20/18at 06:19; Admin Dose 30 MG; Start 06/19/18 at 06:00 Levothyroxine Sodium (Synthroid) 50 mcg BEFORE BREAKFAST PO Last administered on 06/20/18at 06:19; Admin Dose 50 MCG; Start 06/19/18 at 07:00 Lorazepam (Ativan) 1 mg Q6H PRN IV ANXIETY; Start 06/18/18 at 20:00 Morphine Sulfate (morphine) 2 mg Q4H PRN IV SEVERE PAIN LEVEL 7-10; Start 06/18/18 at 20:00 Miscellaneous Medication (Bystolic) 5 mg DAILY PO Last administered on 06/19/18at 08:56; Admin Dose 5 MG; Start 06/19/18 at 09:00 Nitroglycerin (Nitroglycerin 2% Oint) 1 inch Q6 PRN TD CHEST PAIN; Start 06/18/18 at 20:00 Ondansetron HCl (Zofran Inj) 4 mg Q6H PRN IV NAUSEA AND/OR VOMITING; Start 06/18/18 at 20:00 Sertraline HCl (Zoloft) 50 mg DAILY PO Last administered on 06/19/18at 08:55; Admin Dose 50 MG; Start 06/19/18 at 09:00 Sevelamer Carbonate (Renvela) 0.8 gm WITH MEALS PO Last administered on 06/20/18at 12:37; Admin Dose 0.8 GM; Start 06/19/18 at 07:35 Petrolatum (Vaseline) 1 applic NOTE PRN TOP NOTE; Start 06/18/18 at 20:30 Vitamin B Complex/ Vitamin C (Berocca) 1 cap DAILY PO Last administered on 06/20/18at 11:17; Admin Dose 1 CAP; Start 06/19/18 at 09:00 Petrolatum (Vaseline) 1 applic BID TOP Last administered on 06/20/18at 09:00; Admin Dose 1 APPLIC; Start 06/18/18 at 21:00 Miscellaneous Information 1 ea NOTE XX ; Start 06/18/18 at 21:30 Glucose (Glutose) 15 gm Q15M PRN PO DECREASED GLUCOSE; Start 06/18/18 at 21:30 Glucose (Glutose) 22.5 gm Q15M PRN PO DECREASED GLUCOSE; Start 06/18/18 at 21:30 Dextrose (D50w Syringe) 25 ml Q15M PRN IV DECREASED GLUCOSE; Start 06/18/18 at 21:30 Dextrose (D50w Syringe) 50 ml Q15M PRN IV DECREASED GLUCOSE; Start 06/18/18 at 21:30 Glucagon (Glucagen) 1 mg Q15M PRN IM DECREASED GLUCOSE; Start 06/18/18 at 21:30 Glucose (Glutose) 15 gm Q15M PRN BUCCAL DECREASED GLUCOSE; Start 06/18/18 at 21 :30 Epoetin Festus (Epogen (Esrd)) 10,000 units MoWeFr@17 SC ; Start 06/20/18 at 17:00 Memantine (Namenda) 5 mg DAILY PO Last administered on 06/20/18at 09:42; Admin Dose 5 MG; Start 06/20/18 at 09:00 Ascorbic Acid (Vitamin C) 500 mg DAILY PO Last administered on 06/20/18at 09:42; Admin Dose 500 MG; Start 06/20/18 at 09:00 Zinc Sulfate (Zinc Sulfate) 220 mg DAILY PO Last administered on 06/20/18at 1 1:17; Admin Dose 220 MG; Start 06/20/18 at 09:00 Multivitamins Therapeutic (Theragran) 1 tab DAILY PO Last administered on 06/20/18at 09:42; Admin Dose 1 TAB; Start 06/20/18 at 09:00 Miscellaneous Information (* Miscellaneous Pharmacy Order) 1 cory JORDAN PRN XX Before dialysis; Start 06/20/18 at 14:30; Status TANNER NAVA NP Jun 20, 2018 15:02
[2018-06-20] MEDS: EPOETIN 10000 UNITS/1 ML INJ (ESRD) SC SCH (18:30)
[2018-06-20] MEDS: SENNA TAB PO SCH (22:06)
[2018-06-21] MEDS: ALBUTEROL/IPRATROPIUM (NEB) 3 ML AMP HHN SCH ×4 (01:43→20:27)
[2018-06-21 02:00] VITALS: BP 138/70; PULSE 78; RESP 18
[2018-06-21] MEDS: LANSOPRAZOLE 30 MG CAP PO SCH (06:35)
[2018-06-21] MEDS: LEVOTHYROXINE 50 MCG TAB PO SCH (06:35)
--- NOTE | 2018-06-21 06:43 | PN ---
Date/Time of Note Date/Time of Note DATE: 06/21/18 TIME: 06:43 Subjective AWAKE ALERT , NO C/O Objective Vital Signs Date Temp Pulse Resp B/P (MAP) Pulse Ox O2 O2 Flow FiO2 Time Delivery Rate 06/21/18 98.0 78 18 138/70 97 Room Air 02:00 (92) 06/21/18 21 01:43 Intake and Output 06/20/18 06/20/18 06/21/18 1515:00 23:00 07:00 IntakeIntake Total 880 ml OutputOutput Total 2650 ml BalanceBalance -1770 ml Exam LUNGS CTA ABD SOFT MOTOR FAIR CLOF XT AND STAND/GAIT MODA FWW Results/Medications Result Diagram: 06/20/18 0708 06/20/18 0708 Results 24 hrs Laboratory Tests Test 06/20/18 07:04 06/20/18 07:08 06/20/18 08:18 06/20/18 12:28 Hepatitis B Surface NEGATIVE Antigen Hepatitis B Surface POSITIVE H Antibody White Blood Count 4.3 L Red Blood Count 3.05 L Hemoglobin 8.3 L Hematocrit 26.8 L Mean Corpuscular 87.9 Volume Mean Corpuscular 27.2 L Hemoglobin Mean Corpuscular 31.0 L Hemoglobin Concent Red Cell 15.5 H Distribution Width Platelet Count 219 Mean Platelet Volume 9.4 Immature 0.500 H Granulocytes % Neutrophils % 67.7 Lymphocytes % 23.2 Monocytes % 7.0 Eosinophils % 1.4 Basophils % 0.2 Nucleated Red Blood 0.0 Cells % Immature 0.020 Granulocytes # Neutrophils # 2.9 Lymphocytes # 1.0 Monocytes # 0.3 Eosinophils # 0.1 Basophils # 0.0 Nucleated Red Blood 0.0 Cells # Sodium Level 136 Potassium Level 3.6 Chloride Level 98 Carbon Dioxide Level 23 Anion Gap 15 H Blood Urea Nitrogen 83 H Creatinine 4.00 H Est Glomerular Filtrat Rate mL/min Glucose Level 154 Calcium Level 9.4 Phosphorus Level 4.6 Magnesium Level 2.0 Bedside Glucose 165 220 Test 06/20/18 20:05 06/20/18 22:14 06/21/18 02:17 Bedside Glucose 121 186 151 Medications Current Medications Docusate Sodium (Colace) 100 mg BID PO Last administered on 06/20/18at 22:06; Admin Dose 100 MG; Start 06/18/18 at 21:00 Senna (Senokot) 1 tab HS PO Last administered on 06/20/18at 22:06; Admin Dose 1 TAB; Start 06/18/18 at 21:00 Lactulose (Enulose) 20 gm DAILY PRN PO CONSTIPATION; Start 06/18/18 at 19:00 Bisacodyl (Dulcolax Supp) 10 mg DAILY PRN [place] CONSTIPATION; Start 06/18/18 at 19:00 Acetaminophen (Tylenol Tab) 650 mg Q4H PRN PO MILD PAIN 1-3; Start 06/18/18 at 19:00 Miscellaneous Information (Pending [facility] Order For Wound Care) This patient mcclain... PRN PRN XX WOUND CARE; Start 06/18/18 at 19:00 Hydralazine HCl (Apresoline) 100 mg Q8 PO Last administered on 06/21/18at 06:35; Admin Dose 100 MG; Start 06/18/18 at 20:00 Insulin Aspart (Novolog Insulin Pen) NOVOLOG *MILD* ALGORITHM WITH MEALS BEDTIME SC Last administered on 06/20/18at 22:19; Admin Dose 1 UNIT; Start 06/18/18 at 21:00 Lactobacillus Acidophilus/ Rhamnosus (Culturelle) 1 cap BID PO Last administered on 06/20/18at 22:06; Admin Dose 1 CAP; Start 06/18/18 at 21:00 Nystatin (Nystatin Powder) 1 applic BID TOP Last administered on 06/20/18at 22:13; Admin Dose 1 APPLIC; Start 06/18/18 at 21:00 Nystatin (Nystatin Powder) 1 applic NOTE PRN TOP NOTE; Start 06/18/18 at 20:00 Albuterol/ Ipratropium (Duoneb) 3 ml Q6H RESP THERAPY HHN Last administered on 06/21/18at 01:43; Admin Dose 3 ML; Start 06/18/18 at 21:00 Albuterol/ Ipratropium (Duoneb) 3 ml Q6H RESP THERAPY PRN HHN SHORTNESS OF BREATH; Start 06/18/18 at 20:00 Amlodipine Besylate (Norvasc) 5 mg DAILY PO Last administered on 06/20/18at 11:23; Admin Dose 5 MG; Start 06/19/18 at 09:00 Calcium Acetate (Phoslo) 667 mg WITH MEALS PO Last administered on 06/20/18 20:07; Admin Dose 667 MG; Start 06/19/18 at 07:35 Clonidine (Catapres) 0.1 mg Q6H PRN PO SBP ABOVE 170; Start 06/18/18 at 20:00 Collagenase (Santyl) 1 applic Q12 TOP Last administered on 06/20/18 22:16; Admin Dose 1 APPLIC; Start 06/18/18 at 21:00 Collagenase (Santyl) 1 applic NOTE PRN TOP NOTE Last administered on 06/18/18at 21:44; Admin Dose 1 APPLIC; Start 06/18/18 at 20:00 Desmopressin Acetate (Ddavp Nasal) 4 spray BID NASAL ; Start 06/18/18 at 22:00 Diphenhydramine HCl (Benadryl) 25 mg Q4H PRN IV ITCHING; Start 06/18/18 at 20:00 Fluconazole (Diflucan) 100 mg DAILY PO Last administered on 06/20/18 09:42; Admin Dose 100 MG; Start 06/19/18 at 09:00 Folic Acid (Folic Acid) 1 mg DAILY PO Last administered on 06/20/18at 09:42; Admin Dose 1 MG; Start 06/19/18 at 09:00 Guaifenesin (Robitussin Liquid Cup) 100 mg Q6 PRN PO COUGH; Start 06/18/18 at 20:00 Lansoprazole (Prevacid) 30 mg DAILY@06 PO Last administered on 06/21/18at 06:35; Admin Dose 30 MG; Start 06/19/18 at 06:00 Levothyroxine Sodium (Synthroid) 50 mcg BEFORE BREAKFAST PO Last administered on 06/21/18at 06:35; Admin Dose 50 MCG; Start 06/19/18 at 07:00 Lorazepam (Ativan) 1 mg Q6H PRN IV ANXIETY; Start 06/18/18 at 20:00 Morphine Sulfate (morphine) 2 mg Q4H PRN IV SEVERE PAIN LEVEL 7-10; Start 06/18/18 at 20:00 Miscellaneous Medication (Bystolic) 5 mg DAILY PO Last administered on 06/19/18at 08:56; Admin Dose 5 MG; Start 06/19/18 at 09:00 Nitroglycerin (Nitroglycerin 2% Oint) 1 inch Q6 PRN TD CHEST PAIN; Start 06/18/18 at 20:00 Ondansetron HCl (Zofran Inj) 4 mg Q6H PRN IV NAUSEA AND/OR VOMITING; Start 06/18/18 at 20:00 Sertraline HCl (Zoloft) 50 mg DAILY PO Last administered on 06/20/18 20:07; Admin Dose 50 MG; Start 06/19/18 at 09:00 Sevelamer Carbonate (Renvela) 0.8 gm WITH MEALS PO Last administered on 06/20/18 20:08; Admin Dose 0.8 GM; Start 06/19/18 at 07:35 Petrolatum (Vaseline) 1 applic NOTE PRN TOP NOTE; Start 06/18/18 at 20:30 Vitamin B Complex/ Vitamin C (Berocca) 1 cap DAILY PO Last administered on 06/20/18 11:17; Admin Dose 1 CAP; Start 06/19/18 at 09:00 Petrolatum (Vaseline) 1 applic BID TOP Last administered on 06/20/18 22:23; Admin Dose 1 APPLIC; Start 06/18/18 at 21:00 Miscellaneous Information 1 ea NOTE XX ; Start 06/18/18 at 21:30 Glucose (Glutose) 15 gm Q15M PRN PO DECREASED GLUCOSE; Start 06/18/18 at 21:30 Glucose (Glutose) 22.5 gm Q15M PRN PO DECREASED GLUCOSE; Start 06/18/18 at 21:30 Dextrose (D50w Syringe) 25 ml Q15M PRN IV DECREASED GLUCOSE; Start 06/18/18 at 21:30 Dextrose (D50w Syringe) 50 ml Q15M PRN IV DECREASED GLUCOSE; Start 06/18/18 at 21:30 Glucagon (Glucagen) 1 mg Q15M PRN IM DECREASED GLUCOSE; Start 06/18/18 at 21:30 Glucose (Glutose) 15 gm Q15M PRN BUCCAL DECREASED GLUCOSE; Start 06/18/18 at 21:30 Epoetin Festus (Epogen (Esrd)) 10,000 units MoWeFr@17 SC Last administered on 06/20/18 18:30; Admin Dose 10,000 UNITS; Start 06/20/18 at 17:00 Memantine (Namenda) 5 mg DAILY PO Last administered on 06/20/18 09:42; Admin Dose 5 MG; Start 06/20/18 at 09:00 Ascorbic Acid (Vitamin C) 500 mg DAILY PO Last administered on 06/20/18 09:42; Admin Dose 500 MG; Start 06/20/18 at 09:00 Zinc Sulfate (Zinc Sulfate) 220 mg DAILY PO Last administered on 06/20/18 11:17; Admin Dose 220 MG; Start 06/20/18 at 09:00 Multivitamins Therapeutic (Theragran) 1 tab DAILY PO Last administered on 06/20/18 09:42; Admin Dose 1 TAB; Start 06/20/18 at 09:00 Patient Own Medication 1 ea MONWEDFRI PRN XX Before dialysis Last administered on 06/20/18 15:14; Admin Dose 1 EA; Start 06/20/18 at 14:30 Assessment/Plan Additional Assessment/Plan 1. CRITICAL ILLNESS MYOPATHTY - CONT THERAPEUTIC INTERVENTIONS 1.5 Pulmonary debility status post acute respiratory failure, pneumonia status post intubation and extubation. 2. Status post CHF. 3. End-stage renal disease, on hemodialysis. 4. Dysphagia. 5. Diabetes mellitus. 6. Stage III sacral decubitus ulcer.PRESSURE RELIEF , WOUND CARE NURSE 7. Impairments in self-care and mobility 8. ANEMIA HCT 28 TO 27 , MONITOR POSSIBLE TRANSFUSE LAURA PEARSON MD Jun 21, 2018 06:43
[2018-06-21 07:00] VITALS: BP 117/56; PULSE 83; RESP 18
[2018-06-21] MEDS: CALCIUM ACETATE 667 MG CAP PO SCH ×3 (08:08→18:27)
[2018-06-21] MEDS: SEVELAMER CARBONATE 0.8 GM PKT PO SCH ×3 (08:08→18:27)
[2018-06-21] MEDS: INSULIN ASPART [NOVOLOG] 3 ML PEN SC SCH ×4 (08:10→22:20)
[2018-06-21] MEDS: COLLAGENASE 5 GM (UD JAR) TOP SCH ×2 (09:00→21:55)
[2018-06-21] MEDS: NEBIVOLOL 5 MG TAB PO SCH (09:00)
[2018-06-21] MEDS: PETROLATUM 28.35 GM JELLY TOP SCH ×2 (09:00→21:55)
[2018-06-21] MEDS: NYSTATIN 30 GM POWDER BTL TOP SCH ×2 (09:00→21:55)
[2018-06-21] MEDS: DESMOPRESSIN 0.01% 5 ML NASAL NASAL SCH ×2 (09:00→21:00)
[2018-06-21] MEDS: DOCUSATE SODIUM 100 MG CAP PO SCH ×2 (10:07→22:03)
[2018-06-21] MEDS: FLUCONAZOLE 100 MG TAB PO SCH (10:08)
[2018-06-21] MEDS: ZINC SULFATE 220 MG CAP PO SCH (10:08)
[2018-06-21] MEDS: FOLIC ACID 1 MG TAB PO SCH (10:09)
[2018-06-21] MEDS: ASCORBIC ACID 500 MG TAB PO SCH (10:09)
[2018-06-21] MEDS: LACTOBACILLUS RHAMNOSUS CAP PO SCH ×2 (10:09→22:02)
[2018-06-21] MEDS: VITAMIN B COMPLEX/VIT C CAP PO SCH (10:09)
[2018-06-21] MEDS: MULTIVITAMINS THERAPEUTIC TAB PO SCH (10:10)
[2018-06-21] MEDS: MEMANTINE 5 MG TAB PO SCH (10:10)
--- NOTE | 2018-06-21 11:10 | PN ---
Date/Time of Note Date/Time of Note DATE: 06/21/18 TIME: 11:09 Assessment/Plan VTE Prophylaxis Risk score (from Nsg)>0 risk: 7 SCD applied (from Nsg): Yes Pharmacological prophylaxis: other Lines/Catheters Urinary Cath still in place: No Assessment/Plan Hospital Course SUBJECTIVE: The patient is stable, no events overnight. d/w family at the bedside OBJECTIVE: HEENT: Head is normocephalic. NECK: Supple. HEART: Regular rate. LUNGS: Show diminished breath sounds at the base. ABDOMEN: Soft, nontender to palpation without rebound or guarding. EXTREMITIES: Negative for clubbing, cyanosis, no edema. DERMATOLOGIC: No rashes. MUSCULOSKELETAL: No joint effusion. NEUROLOGIC: No change in exam. MEDICATIONS: Reviewed. LABORATORY DATA: Reviewed. 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 2. End-stage renal disease. Plan is for hemodialysis in am 3. Anemia. Continue to monitor hemoglobin and hematocrit levels. Continue E pogen. 4. Mineral bone disorder. Monitor calcium and phosphorus levels. Continue phosphate binders. 5. Right upper extremity deep vein thrombosis. The patient was seen by vascular surgery, no plan for anticoagulation. 6. Acute respiratory failure secondary to pneumonia. The patient is clinically improved. Continue to monitor. Continue bronchodilators. 7. History of heart failure. Continue medical management. Continue ultrafiltration with dialysis. 8. Diabetes. Continue current insulin regimen. 9. Dysphagia. Continue modified diet. 10. Epistaxis, resolved. 11. Urinary tract infection. Continue current antibiotic regimen. 12. Gastrointestinal and deep vein thrombosis prophylaxis. Result Diagram: 06/20/18 0708 06/20/18 0708 Results 24hrs Laboratory Tests Test 06/20/18 12:28 06/20/18 20:05 06/20/18 22:14 06/21/18 02:17 Bedside Glucose 220 121 186 151 Test 06/21/18 08:06 Bedside Glucose 147 Exam/Review of Systems Exam Vitals Vital Signs Date Temp Pulse Resp B/P (MAP) Pulse Ox O2 O2 Flow FiO2 Time Delivery Rate 06/21/18 82 20 96 21 08:08 06/21/18 98.7 117/56 Room Air 07:00 (76) Intake and Output 06/20/18 06/20/18 06/21/18 1414:59 22:59 06:59 IntakeIntake Total 880 ml 550 ml OutputOutput Total 2650 ml BalanceBalance -1770 ml 550 ml Results Results 24hrs Laboratory Tests Test 06/20/18 12:28 06/20/18 20:05 06/20/18 22:14 06/21/18 02:17 Bedside Glucose 220 121 186 151 Test 06/21/18 08:06 Bedside Glucose 147 Medications Medication Current Medications Docusate Sodium (Colace) 100 mg BID PO Last administered on 06/21/18at 10:07; Admin Dose 100 MG; Start 06/18/18 at 21:00 Senna (Senokot) 1 tab HS PO Last administered on 06/20/18at 22:06; Admin Dose 1 TAB; Start 06/18/18 at 21:00 Lactulose (Enulose) 20 gm DAILY PRN PO CONSTIPATION; Start 06/18/18 at 19:00 Bisacodyl (Dulcolax Supp) 10 mg DAILY PRN [place] CONSTIPATION; Start 06/18/18 at 19:00 Acetaminophen (Tylenol Tab) 650 mg Q4H PRN PO MILD PAIN 1-3; Start 06/18/18 at 19:00 Miscellaneous Information (Pending Santyl Order For Wound Care) This patient mcclain... PRN PRN XX WOUND CARE; Start 06/18/18 at 19:00 Hydralazine HCl (Apresoline) 100 mg Q8 PO Last administered on 06/21/18at 06:35; Admin Dose 100 MG; Start 06/18/18 at 20:00 Insulin Aspart (Novolog Insulin Pen) NOVOLOG *MILD* ALGORITHM WITH MEALS BEDTIME SC Last administered on 06/21/18at 08:10; Admin Dose 1 UNIT; Start 06/18/18 at 21:00 Lactobacillus Acidophilus/ Rhamnosus (Culturelle) 1 cap BID PO Last administered on 06/21/18at 10:09; Admin Dose 1 CAP; Start 06/18/18 at 21:00 Nystatin (Nystatin Powder) 1 applic BID TOP Last administered on 06/20/18at 22:13; Admin Dose 1 APPLIC; Start 06/18/18 at 21:00 Nystatin (Nystatin Powder) 1 applic NOTE PRN TOP NOTE; Start 06/18/18 at 20:00 Albuterol/ Ipratropium (Duoneb) 3 ml Q6H RESP THERAPY HHN Last administered on 06/21/18 08:07; Admin Dose 3 ML; Start 06/18/18 at 21:00 Albuterol/ Ipratropium (Duoneb) 3 ml Q6H RESP THERAPY PRN HHN SHORTNESS OF BREATH; Start 06/18/18 at 20:00 Amlodipine Besylate (Norvasc) 5 mg DAILY PO Last administered on 06/20/18 11:23; Admin Dose 5 MG; Start 06/19/18 at 09:00 Calcium Acetate (Phoslo) 667 mg WITH MEALS PO Last administered on 06/21/18 08:08; Admin Dose 667 MG; Start 06/19/18 at 07:35 Clonidine (Catapres) 0.1 mg Q6H PRN PO SBP ABOVE 170; Start 06/18/18 at 20:00 Collagenase (Santyl) 1 applic Q12 TOP Last administered on 06/20/18 22:16; Admin Dose 1 APPLIC; Start 06/18/18 at 21:00 Collagenase (Santyl) 1 applic NOTE PRN TOP NOTE Last administered on 06/18/18at 21:44; Admin Dose 1 APPLIC; Start 06/18/18 at 20:00 Desmopressin Acetate (Ddavp Nasal) 4 spray BID NASAL ; Start 06/18/18 at 22:00 Diphenhydramine HCl (Benadryl) 25 mg Q4H PRN IV ITCHING; Start 06/18/18 at 20:00 Fluconazole (Diflucan) 100 mg DAILY PO Last administered on 06/21/18 10:08; Admin Dose 100 MG; Start 06/19/18 at 09:00 Folic Acid (Folic Acid) 1 mg DAILY PO Last administered on 06/21/18 10:09; Admin Dose 1 MG; Start 06/19/18 at 09:00 Guaifenesin (Robitussin Liquid Cup) 100 mg Q6 PRN PO COUGH; Start 06/18/18 at 20:00 Lansoprazole (Prevacid) 30 mg DAILY@06 PO Last administered on 06/21/18 06:35; Admin Dose 30 MG; Start 06/19/18 at 06:00 Levothyroxine Sodium (Synthroid) 50 mcg BEFORE BREAKFAST PO Last administered on 06/21/18 06:35; Admin Dose 50 MCG; Start 06/19/18 at 07:00 Lorazepam (Ativan) 1 mg Q6H PRN IV ANXIETY; Start 06/18/18 at 20:00 Morphine Sulfate (morphine) 2 mg Q4H PRN IV SEVERE PAIN LEVEL 7-10; Start 06/18/18 at 20:00 Miscellaneous Medication (Bystolic) 5 mg DAILY PO Last administered on 06/19/18at 08:56; Admin Dose 5 MG; Start 06/19/18 at 09:00 Nitroglycerin (Nitroglycerin 2% Oint) 1 inch Q6 PRN TD CHEST PAIN; Start 06/18/18 at 20:00 Ondansetron HCl (Zofran Inj) 4 mg Q6H PRN IV NAUSEA AND/OR VOMITING; Start 06/18/18 at 20:00 Sertraline HCl (Zoloft) 50 mg DAILY PO Last administered on 06/20/18at 20:07; Admin Dose 50 MG; Start 06/19/18 at 09:00 Sevelamer Carbonate (Renvela) 0.8 gm WITH MEALS PO Last administered on 06/21/18at 08:08; Admin Dose 0.8 GM; Start 06/19/18 at 07:35 Petrolatum (Vaseline) 1 applic NOTE PRN TOP NOTE; Start 06/18/18 at 20:30 Vitamin B Complex/ Vitamin C (Berocca) 1 cap DAILY PO Last administered on 06/21/18at 10:09; Admin Dose 1 CAP; Start 06/19/18 at 09:00 Petrolatum (Vaseline) 1 applic BID TOP Last administered on 06/20/18at 22:23; Admin Dose 1 APPLIC; Start 06/18/18 at 21:00 Miscellaneous Information 1 ea NOTE XX ; Start 06/18/18 at 21:30 Glucose (Glutose) 15 gm Q15M PRN PO DECREASED GLUCOSE; Start 06/18/18 at 21:30 Glucose (Glutose) 22.5 gm Q15M PRN PO DECREASED GLUCOSE; Start 06/18/18 at 21:30 Dextrose (D50w Syringe) 25 ml Q15M PRN IV DECREASED GLUCOSE; Start 06/18/18 at 21:30 Dextrose (D50w Syringe) 50 ml Q15M PRN IV DECREASED GLUCOSE; Start 06/18/18 at 21:30 Glucagon (Glucagen) 1 mg Q15M PRN IM DECREASED GLUCOSE; Start 06/18/18 at 21:30 Glucose (Glutose) 15 gm Q15M PRN BUCCAL DECREASED GLUCOSE; Start 06/18/18 at 21:30 Epoetin Festus (Epogen (Esrd)) 10,000 units MoWeFr@17 SC Last administered on 06/20/18at 18:30; Admin Dose 10,000 UNITS; Start 06/20/18 at 17:00 Memantine (Namenda) 5 mg DAILY PO Last administered on 06/21/18at 10:10; Admin Dose 5 MG; Start 06/20/18 at 09:00 Ascorbic Acid (Vitamin C) 500 mg DAILY PO Last administered on 06/21/18 10:09; Admin Dose 500 MG; Start 06/20/18 at 09:00 Zinc Sulfate (Zinc Sulfate) 220 mg DAILY PO Last administered on 06/21/18 10:08; Admin Dose 220 MG; Start 06/20/18 at 09:00 Multivitamins Therapeutic (Theragran) 1 tab DAILY PO Last administered on 06/21/18at 10:10; Admin Dose 1 TAB; Start 06/20/18 at 09:00 Patient Own Medication 1 ea MONWEDFRI PRN XX Before dialysis Last administered on 06/20/18at 15:14; Admin Dose 1 EA; Start 06/20/18 at 14:30 FAY LARES DO Jun 21, 2018 11:09
[2018-06-21] MEDS: AMLODIPINE 5 MG TAB PO SCH (11:17)
[2018-06-21] MEDS: SERTRALINE 50 MG TAB PO SCH (13:52)
[2018-06-21 14:00] VITALS: BP 125/61; PULSE 94; RESP 18
--- NOTE | 2018-06-21 14:03 | CONS ---
Assessment/Plan Assessment/Plan Hospital Course (Demo Recall) ID PROGRESS NOTE CURRENT ABX: DAY # Diflucan + COMPLETED AMOXICILLIN 06/20/18 0708 06/20/18 0708 24H INTERVAL SUMMARY * Awake, alert, responsive, calm, VSS, no fevers/chills denies dysuria * Daughters present reporting "altered mental status" -- they are concerned true recurrent UTI MICRO/OTHER * 06/18/18 URINE CX: URINE CULTURE Preliminary Organism 1 MIXED GRAM NEG & POS ORGANISMS COLONY COUNT >100,000 CFU/ml * 06/14/18 URINE CX: URINE CULTURE Final Organism 1 PEDIOCOCCUS COLONY COUNT >100,000 CFU/ml * 06/09/18 URINE CX: URINE CULTURE Final Organism 1 PEDIOCOCCUS COLONY COUNT >100,000 CFU/ml Organism 2 ALONZO ALBICANS COLONY COUNT >100,000 CFU/ml PHYSICAL EXAMINATION: GENERAL: VSS HEENT: AT, NC, anicteric NECK: Supple, CHEST: Equal chest rise bilaterally, without dyspnea on observation HEART: Pulse RRR ABDOMEN: Soft / NT EXTREMITIES: Warm, dry // LUEXT AVF SKIN: No rash, no diaphoresis ID ASSESSMENT 78 yo F admit with: 1. Recurrent bacteruria -- s/p treatment for UTI with urine culture grew pedoicoccus 2. Status post pneumonia with respiratory failure 3. CHF 4. Diabetes 5. End-stage renal disease, hemodialysis dependent 6. Dementia ABX ALLERGIES: AUGMENTIN/CLINDAMYCIN INVASIVES: PIV CURRENT ABX: DAY # Diflucan + COMPLETED AMOXICILLIN ID RECOMMENDATIONS/PLAN: 1. Daughters present reporting "altered mental status" -- they are concerned true recurrent UTI 2. Will Rx Fosfomycin 3gm po x1 for 06/18/18 Urine Cx (+)GNR/GPC > 100,000 pending 3. Will Rx Monostat vaginal suppository -- off load perineal yeast due to hx of alternating yeast -> bacterial UTI * ABX strategy discussed with daughters who concur, express understanding, agreement, gratitude. * I will check on her tomorrow -- Advised daughters avoid surveillance straight cath UA & Cx -- only check if she has signs or sxs of recurrent UTI. . Consultation Date/Type/Reason Admit Date/Time Jun 18, 2018 at 18:06 Initial Consult Date Date/Time of Note DATE: 06/21/18 TIME: 13:56 Exam/Review of Systems Exam Vitals Vital Signs Date Temp Pulse Resp B/P (MAP) Pulse Ox O2 O2 Flow FiO2 Time Delivery Rate 06/21/18 80 20 98 21 13:05 06/21/18 98.7 117/56 Room Air 07:00 (76) Intake and Output 06/20/18 06/20/18 06/21/18 1515:00 23:00 07:00 IntakeIntake Total 880 ml 550 ml OutputOutput Total 2650 ml BalanceBalance -1770 ml 550 ml Results Result Diagram: 06/20/18 0708 06/20/18 0708 Results 24hrs Laboratory Tests Test 06/20/18 20:05 06/20/18 22:14 06/21/18 02:17 06/21/18 08:06 Bedside Glucose 121 186 151 147 Test 06/21/18 12:27 Bedside Glucose 161 Medications Medication Current Medications Docusate Sodium (Colace) 100 mg BID PO Last administered on 06/21/18at 10:07; Admin Dose 100 MG; Start 06/18/18 at 21:00 Senna (Senokot) 1 tab HS PO Last administered on 06/20/18at 22:06; Admin Dose 1 TAB; Start 06/18/18 at 21:00 Lactulose (Enulose) 20 gm DAILY PRN PO CONSTIPATION; Start 06/18/18 at 19:00 Bisacodyl (Dulcolax Supp) 10 mg DAILY PRN [place] CONSTIPATION; Start 06/18/18 at 19:00 Acetaminophen (Tylenol Tab) 650 mg Q4H PRN PO MILD PAIN 1-3; Start 06/18/18 at 19:00 Miscellaneous Information (Pending Santyl Order For Wound Care) This patient mcclain... PRN PRN XX WOUND CARE; Start 06/18/18 at 19:00 Hydralazine HCl (Apresoline) 100 mg Q8 PO Last administered on 06/21/18 06:35; Admin Dose 100 MG; Start 06/18/18 at 20:00 Insulin Aspart (Novolog Insulin Pen) NOVOLOG *MILD* ALGORITHM WITH MEALS BEDTIME SC Last administered on 06/21/18at 12:35; Admin Dose 1 UNIT; Start 06/18/18 at 21:00 Lactobacillus Acidophilus/ Rhamnosus (Culturelle) 1 cap BID PO Last ad ministered on 06/21/18 10:09; Admin Dose 1 CAP; Start 06/18/18 at 21:00 Nystatin (Nystatin Powder) 1 applic BID TOP Last administered on 06/20/18 22:13; Admin Dose 1 APPLIC; Start 06/18/18 at 21:00 Nystatin (Nystatin Powder) 1 applic NOTE PRN TOP NOTE; Start 06/18/18 at 20:00 Albuterol/ Ipratropium (Duoneb) 3 ml Q6H RESP THERAPY HHN Last administered on 06/21/18 13:04; Admin Dose 3 ML; Start 06/18/18 at 21:00 Albuterol/ Ipratropium (Duoneb) 3 ml Q6H RESP THERAPY PRN HHN SHORTNESS OF GABRIEL TH; Start 06/18/18 at 20:00 Amlodipine Besylate (Norvasc) 5 mg DAILY PO Last administered on 06/21/18 11:17; Admin Dose 5 MG; Start 06/19/18 at 09:00 Calcium Acetate (Phoslo) 667 mg WITH MEALS PO Last administered on 06/21/18 08:08; Admin Dose 667 MG; Start 06/19/18 at 07:35 Clonidine (Catapres) 0.1 mg Q6H PRN PO SBP ABOVE 170; Start 06/18/18 at 20:00 Collagenase (Santyl) 1 applic Q12 TOP Last administered on 06/20/18at 22:16; Admin Dose 1 APPLIC; Start 06/18/18 at 21:00 Collagenase (Santyl) 1 applic NOTE PRN TOP NOTE Last administered on 06/18/18 21:44; Admin Dose 1 APPLIC; Start 06/18/18 at 20:00 Desmopressin Acetate (Ddavp Nasal) 4 spray BID NASAL ; Start 06/18/18 at 22:00 Diphenhydramine HCl (Benadryl) 25 mg Q4H PRN IV ITCHING; Start 06/18/18 at 20:00 Fluconazole (Diflucan) 100 mg DAILY PO Last administered on 06/21/18 10:08; Admin Dose 100 MG; Start 06/19/18 at 09:00 Folic Acid (Folic Acid) 1 mg DAILY PO Last administered on 06/21/18at 10:09; Admin Dose 1 MG; Start 06/19/18 at 09:00 Guaifenesin (Robitussin Liquid Cup) 100 mg Q6 PRN PO COUGH; Start 06/18/18 at 20:00 Lansoprazole (Prevacid) 30 mg DAILY@06 PO Last administered on 06/21/18at 06:35; Admin Dose 30 MG; Start 06/19/18 at 06:00 Levothyroxine Sodium (Synthroid) 50 mcg BEFORE BREAKFAST PO Last administered on 06/21/18 06:35; Admin Dose 50 MCG; Start 06/19/18 at 07:00 Lorazepam (Ativan) 1 mg Q6H PRN IV ANXIETY; Start 06/18/18 at 20:00 Morphine Sulfate (morphine) 2 mg Q4H PRN IV SEVERE PAIN LEVEL 7-10; Start 06/18/18 at 20:00 Miscellaneous Medication (Bystolic) 5 mg DAILY PO Last administered on at 08:56; Admin Dose 5 MG; Start 06/19/18 at 09:00 Nitroglycerin (Nitroglycerin 2% Oint) 1 inch Q6 PRN TD CHEST PAIN; Start 06/18/18 at 20:00 Ondansetron HCl (Zofran Inj) 4 mg Q6H PRN IV NAUSEA AND/OR VOMITING; Start 06/18/18 at 20:00 Sertraline HCl (Zoloft) 50 mg DAILY PO Last administered on 06/20/18at 20:07; Admin Dose 50 MG; Start 06/19/18 at 09:00 Sevelamer Carbonate (Renvela) 0.8 gm WITH MEALS PO Last administered on 06/21/18 08:08; Admin Dose 0.8 GM; Start 06/19/18 at 07:35 Petrolatum (Vaseline) 1 applic NOTE PRN TOP NOTE; Start 06/18/18 at 20:30 Vitamin B Complex/ Vitamin C (Berocca) 1 cap DAILY PO Last administered on 06/21/18at 10:09; Admin Dose 1 CAP; Start 06/19/18 at 09:00 Petrolatum (Vaseline) 1 applic BID TOP Last administered on 06/20/18at 22:23; Admin Dose 1 APPLIC; Start 06/18/18 at 21:00 Miscellaneous Information 1 ea NOTE XX ; Start 06/18/18 at 21:30 Glucose (Glutose) 15 gm Q15M PRN PO DECREASED GLUCOSE; Start 06/18/18 at 21:30 Glucose (Glutose) 22.5 gm Q15M PRN PO DECREASED GLUCOSE; Start 06/18/18 at 21:30 Dextrose (D50w Syringe) 25 ml Q15M PRN IV DECREASED GLUCOSE; Start 06/18/18 at 21:30 Dextrose (D50w Syringe) 50 ml Q15M PRN IV DECREASED GLUCOSE; Start 06/18/18 at 21:30 Glucagon (Glucagen) 1 mg Q15M PRN IM DECREASED GLUCOSE; Start 06/18/18 at 21:30 Glucose (Glutose) 15 gm Q15M PRN BUCCAL DECREASED GLUCOSE; Start 06/18/18 at 21:30 Epoetin Festus (Epogen (Esrd)) 10,000 units MoWeFr@17 SC Last administered on 06/20/18at 18:30; Admin Dose 10,000 UNITS; Start 06/20/18 at 17:00 Memantine (Namenda) 5 mg DAILY PO Last administered on 06/21/18at 10:10; Admin Dose 5 MG; Start 06/20/18 at 09:00 Ascorbic Acid (Vitamin C) 500 mg DAILY PO Last administered on 06/21/18at 10:09; Admin Dose 500 MG; Start 06/20/18 at 09:00 Zinc Sulfate (Zinc Sulfate) 220 mg DAILY PO Last administered on 06/21/18at 10:08; Admin Dose 220 MG; Start 06/20/18 at 09:00 Multivitamins Therapeutic (Theragran) 1 tab DAILY PO Last administered on 06/21/18 10:10; Admin Dose 1 TAB; Start 06/20/18 at 09:00 Patient Own Medication 1 ea MONWEDFRI PRN XX Before dialysis Last administered on 06/20/18at 15:14; Admin Dose 1 EA; Start 06/20/18 at 14:30 ADONIS ELY NP Jun 21, 2018 14:03
[2018-06-21] MEDS ORDERED: FOSFOMYCIN 3 GM PACKET PO ONE (16:00)
[2018-06-21 19:10] VITALS: BP 139/63; PULSE 85; RESP 18
[2018-06-21] MEDS ORDERED: MICONAZOLE 200 MG VAG SUPP VAG SCH (21:00)
[2018-06-21] MEDS: SENNA TAB PO SCH (22:03)
[2018-06-21] MEDS: ACETAMINOPHEN 325 MG TAB PO PRN (22:03)
[2018-06-22] VITALS (18 sets, daily range): BP systolic 102–167; BP diastolic 44–70; PULSE 77–93; RESP 16–18
[2018-06-22] MEDS: ALBUTEROL/IPRATROPIUM (NEB) 3 ML AMP HHN SCH ×4 (01:39→19:38)
[2018-06-22] MEDS: LEVOTHYROXINE 50 MCG TAB PO SCH (06:40)
[2018-06-22] MEDS: LANSOPRAZOLE 30 MG CAP PO SCH (06:40)
[2018-06-22] MEDS: INSULIN ASPART [NOVOLOG] 3 ML PEN SC SCH ×4 (08:35→21:00)
[2018-06-22] MEDS: SEVELAMER CARBONATE 0.8 GM PKT PO SCH ×3 (08:35→18:07)
[2018-06-22] MEDS: CALCIUM ACETATE 667 MG CAP PO SCH ×3 (08:36→18:07)
[2018-06-22] MEDS: DESMOPRESSIN 0.01% 5 ML NASAL NASAL SCH ×2 (09:00→20:38)
[2018-06-22] MEDS: AMLODIPINE 5 MG TAB PO SCH (09:00)
[2018-06-22] MEDS: MEMANTINE 5 MG TAB PO SCH (09:00)
[2018-06-22] MEDS: ASCORBIC ACID 500 MG TAB PO SCH (09:00)
[2018-06-22] MEDS: NEBIVOLOL 5 MG TAB PO SCH (09:00)
[2018-06-22] MEDS: NYSTATIN 30 GM POWDER BTL TOP SCH ×2 (09:00→21:54)
[2018-06-22] MEDS: DOCUSATE SODIUM 100 MG CAP PO SCH ×2 (09:00→20:35)
[2018-06-22] MEDS: PETROLATUM 28.35 GM JELLY TOP SCH (09:00)
--- NOTE | 2018-06-22 11:52 | PN ---
Date/Time of Note Date/Time of Note DATE: 06/22/18 TIME: 11:51 Assessment/Plan VTE Prophylaxis Risk score (from Nsg)>0 risk: 7 SCD applied (from Nsg): Yes Pharmacological prophylaxis: other Lines/Catheters Urinary Cath still in place: No Assessment/Plan Hospital Course SUBJECTIVE: The patient is stable, no events overnight. d/w family at the bedside seen during HD OBJECTIVE: HEENT: Head is normocephalic. NECK: Supple. HEART: Regular rate. LUNGS: Show diminished breath sounds at the base. ABDOMEN: Soft, nontender to palpation without rebound or guarding. EXTREMITIES: Negative for clubbing, cyanosis, no edema. DERMATOLOGIC: No rashes. MUSCULOSKELETAL: No joint effusion. NEUROLOGIC: No change in exam. MEDICATIONS: Reviewed. LABORATORY DATA: Reviewed. 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 2. End-stage renal disease. continue hd today 3. Anemia. Continue to monitor hemoglobin and hematocrit levels. Continue Epogen. 4. Mineral bone disorder. Monitor calcium and phosphorus levels. Continue phosphate binders. 5. Right upper extremity deep vein thrombosis. The patient was seen by vascular surgery, no plan for anticoagulation. 6. Acute respiratory failure secondary to pneumonia. The patient is clinically improved. Continue to monitor. Continue bronchodilators. 7. History of heart failure. Continue medical management. Continue ultrafiltration with dialysis. 8. Diabetes. Continue current insulin regimen. 9. Dysphagia. Continue modified diet. 10. Epistaxis, resolved. 11. Urinary tract infection. Continue current antibiotic regimen. 12. Gastrointestinal and deep vein thrombosis prophylaxis. Result Diagram: 06/20/18 0708 06/20/18 0708 Results 24hrs Laboratory Tests Test 06/21/18 12:27 06/21/18 18:26 06/21/18 22:14 06/22/18 02:56 Bedside Glucose 161 161 192 135 Test 06/22/18 08:27 Bedside Glucose 173 Exam/Review of Systems Exam Vitals Vital Signs Date Temp Pulse Resp B/P (MAP) Pulse Ox O2 O2 Flow FiO2 Time Delivery Rate 06/22/18 85 18 97 21 08:03 06/22/18 98.2 167/70 Room Air 07:00 (102) Intake and Output 06/21/18 06/21/18 06/22/18 1515:00 23:00 07:00 IntakeIntake Total 700 ml BalanceBalance 700 ml Results Results 24hrs Laboratory Tests Test 06/21/18 12:27 06/21/18 18:26 06/21/18 22:14 06/22/18 02:56 Bedside Glucose 161 161 192 135 Test 06/22/18 08:27 Bedside Glucose 173 Medications Medication Current Medications Docusate Sodium (Colace) 100 mg BID PO Last administered on 06/21/18 22:03; Admin Dose 100 MG; Start 06/18/18 at 21:00 Senna (Senokot) 1 tab HS PO Last administered on 06/21/18 22:03; Admin Dose 1 TAB; Start 06/18/18 at 21:00 Lactulose (Enulose) 20 gm DAILY PRN PO CONSTIPATION; Start 06/18/18 at 19:00 Bisacodyl (Dulcolax Supp) 10 mg DAILY PRN [place] CONSTIPATION; Start 06/18/18 at 19:00 Acetaminophen (Tylenol Tab) 650 mg Q4H PRN PO MILD PAIN 1-3 Last administered on 06/21/18 22:03; Admin Dose 650 MG; Start 06/18/18 at 19:00 Miscellaneous Information (Pending Santyl Order For Wound Care) This patient mcclain... PRN PRN XX WOUND CARE; Start 06/18/18 at 19:00 Hydralazine HCl (Apresoline) 100 mg Q8 PO Last administered on 06/22/18 06:40; Admin Dose 100 MG; Start 06/18/18 at 20:00 Insulin Aspart (Novolog Insulin Pen) NOVOLOG *MILD* ALGORITHM WITH MEALS BEDTIME SC Last administered on 06/22/18 08:35; Admin Dose 1 UNIT; Start 06/18/18 at 21:00 Lactobacillus Acidophilus/ Rhamnosus (Culturelle) 1 cap BID PO Last admi nistered on 06/21/18 22:02; Admin Dose 1 CAP; Start 06/18/18 at 21:00 Nystatin (Nystatin Powder) 1 applic BID TOP Last administered on 06/21/18 21:55; Admin Dose 1 APPLIC; Start 06/18/18 at 21:00 Nystatin (Nystatin Powder) 1 applic NOTE PRN TOP NOTE; Start 06/18/18 at 20:00 Albuterol/ Ipratropium (Duoneb) 3 ml Q6H RESP THERAPY HHN Last administered on 06/22/18 08:03; Admin Dose 3 ML; Start 06/18/18 at 21:00 Albuterol/ Ipratropium (Duoneb) 3 ml Q6H RESP THERAPY PRN HHN SHORTNESS OF BREATH; Start 06/18/18 at 20:00 Amlodipine Besylate (Norvasc) 5 mg DAILY PO Last administered on 06/21/18 11:17; Admin Dose 5 MG; Start 06/19/18 at 09:00 Calcium Acetate (Phoslo) 667 mg WITH MEALS PO Last administered on 06/22/18 08:36; Admin Dose 667 MG; Start 06/19/18 at 07:35 Clonidine (Catapres) 0.1 mg Q6H PRN PO SBP ABOVE 170; Start 06/18/18 at 20:00 Collagenase (Santyl) 1 applic Q12 TOP Last administered on 06/21/18at 21:55; Admin Dose 1 APPLIC; Start 06/18/18 at 21:00 Collagenase (Santyl) 1 applic NOTE PRN TOP NOTE Last administered on 06/18/18at 21:44; Admin Dose 1 APPLIC; Start 06/18/18 at 20:00 Desmopressin Acetate (Ddavp Nasal) 4 spray BID NASAL ; Start 06/18/18 at 22:00 Diphenhydramine HCl (Benadryl) 25 mg Q4H PRN IV ITCHING; Start 06/18/18 at 20:00 Fluconazole (Diflucan) 100 mg DAILY PO Last administered on 06/21/18 10:08; Admin Dose 100 MG; Start 06/19/18 at 09:00 Folic Acid (Folic Acid) 1 mg DAILY PO Last administered on 06/21/18 10:09; Admin Dose 1 MG; Start 06/19/18 at 09:00 Guaifenesin (Robitussin Liquid Cup) 100 mg Q6 PRN PO COUGH; Start 06/18/18 at 20:00 Lansoprazole (Prevacid) 30 mg DAILY@06 PO Last administered on 06/22/18 06:40; Admin Dose 30 MG; Start 06/19/18 at 06:00 Levothyroxine Sodium (Synthroid) 50 mcg BEFORE BREAKFAST PO Last administered on 06/22/18 06:40; Admin Dose 50 MCG; Start 06/19/18 at 07:00 Lorazepam (Ativan) 1 mg Q6H PRN IV ANXIETY; Start 06/18/18 at 20:00 Morphine Sulfate (morphine) 2 mg Q4H PRN IV SEVERE PAIN LEVEL 7-10; Start 06/18/18 at 20:00 Miscellaneous Medication (Bystolic) 5 mg DAILY PO Last administered on 06/06 07/25at 08:56; Admin Dose 5 MG; Start 06/19/18 at 09:00 Nitroglycerin (Nitroglycerin 2% Oint) 1 inch Q6 PRN TD CHEST PAIN; Start 06/18/18 at 20:00 Ondansetron HCl (Zofran Inj) 4 mg Q6H PRN IV NAUSEA AND/OR VOMITING; Start 06/18/18 at 20:00 Sertraline HCl (Zoloft) 50 mg DAILY PO Last administered on 06/21/18at 13:52; Admin Dose 50 MG; Start 06/19/18 at 09:00 Sevelamer Carbonate (Renvela) 0.8 gm WITH MEALS PO Last administered on 06/22/18at 08:35; Admin Dose 0.8 GM; Start 06/19/18 at 07:35 Petrolatum (Vaseline) 1 applic NOTE PRN TOP NOTE; Start 06/18/18 at 20:30 Vitamin B Complex/ Vitamin C (Berocca) 1 cap DAILY PO Last administered on 06/21/18at 10:09; Admin Dose 1 CAP; Start 06/19/18 at 09:00 Petrolatum (Vaseline) 1 applic BID TOP Last administered on 06/21/18at 21:55; Admin Dose 1 APPLIC; Start 06/18/18 at 21:00 Miscellaneous Information 1 ea NOTE XX ; Start 06/18/18 at 21:30 Glucose (Glutose) 15 gm Q15M PRN PO DECREASED GLUCOSE; Start 06/18/18 at 21:30 Glucose (Glutose) 22.5 gm Q15M PRN PO DECREASED GLUCOSE; Start 06/18/18 at 21:30 Dextrose (D50w Syringe) 25 ml Q15M PRN IV DECREASED GLUCOSE; Start 06/18/18 at 21:30 Dextrose (D50w Syringe) 50 ml Q15M PRN IV DECREASED GLUCOSE; Start 06/18/18 at 21:30 Glucagon (Glucagen) 1 mg Q15M PRN IM DECREASED GLUCOSE; Start 06/18/18 at 21:30 Glucose (Glutose) 15 gm Q15M PRN BUCCAL DECREASED GLUCOSE; Start 06/18/18 at 21:30 Epoetin Festus (Epogen (Esrd)) 10,000 units MoWeFr@17 SC Last administered on 06/20/18 18:30; Admin Dose 10,000 UNITS; Start 06/20/18 at 17:00 Memantine (Namenda) 5 mg DAILY PO Last administered on 06/21/18 10:10; Admin Dose 5 MG; Start 06/20/18 at 09:00 Ascorbic Acid (Vitamin C) 500 mg DAILY PO Last administered on 06/21/18 10:09; Admin Dose 500 MG; Start 06/20/18 at 09:00 Zinc Sulfate (Zinc Sulfate) 220 mg DAILY PO Last administered on 06/21/18 10:08; Admin Dose 220 MG; Start 06/20/18 at 09:00 Multivitamins Therapeutic (Theragran) 1 tab DAILY PO Last administered on 06/21/18 10:10; Admin Dose 1 TAB; Start 06/20/18 at 09:00 Patient Own Medication 1 ea [id number] PRN XX Before dialysis Last administered on 06/20/18 15:14; Admin Dose 1 EA; Start 06/20/18 at 14:30 Miconazole (Monistat-3) 1 supp HS VAG Last administered on 06/21/18at 21:51; Admin Dose 1 SUPP; Start 06/21/18 at 21:00; Stop 06/23/18 at 21:01 FAY LARES DO Jun 22, 2018 11:52
[2018-06-22] MEDS: LACTOBACILLUS RHAMNOSUS CAP PO SCH ×2 (14:10→20:35)
[2018-06-22] MEDS: COLLAGENASE 5 GM (UD JAR) TOP SCH ×2 (14:12→20:40)
[2018-06-22] MEDS: SERTRALINE 50 MG TAB PO SCH (14:16)
[2018-06-22] MEDS: ZINC SULFATE 220 MG CAP PO SCH (14:16)
[2018-06-22] MEDS: FLUCONAZOLE 100 MG TAB PO SCH (14:16)
[2018-06-22] MEDS: FOLIC ACID 1 MG TAB PO SCH (14:16)
[2018-06-22] MEDS: VITAMIN B COMPLEX/VIT C CAP PO SCH (14:17)
[2018-06-22] MEDS: MULTIVITAMINS THERAPEUTIC TAB PO SCH (14:17)
--- NOTE | 2018-06-22 14:37 | CONS ---
Assessment/Plan Assessment/Plan Hospital Course (Demo Recall) ID PROGRESS NOTE CURRENT ABX: DAY # Diflucan + Monostat vag suppository + s/p FOSFOMYCIN x1 06/21/18 PM s/p AMOXICILLIN 06/20/18 0708 06/20/18 0708 24H INTERVAL SUMMARY * Patient is stable -- Awake, alert, responsive, calm, VSS, no fevers/chills denies dysuria * Daughter's not present today MICRO/OTHER * 06/18/18 URINE CX: URINE CULTURE Final Organism 1 MIXED GRAM NEG & POS ORGANISMS COLONY COUNT >100,000 CFU/ml * 06/14/18 URINE CX: URINE CULTURE Final Organism 1 PEDIOCOCCUS COLONY COUNT >100,000 CFU/ml * 06/09/18 URINE CX: URINE CULTURE Final Organism 1 PEDIOCOCCUS COLONY COUNT >100,000 CFU/ml Organism 2 ALONZO ALBICANS COLONY COUNT >100,000 CFU/ml PHYSICAL EXAMINATION: GENERAL: VSS HEENT: AT, NC, anicteric NECK: Supple, CHEST: Equal chest rise bilaterally, without dyspnea on observation HEART: Pulse RRR ABDOMEN: Soft / NT EXTREMITIES: Warm, dry // LUEXT AVF SKIN: No rash, no diaphoresis ID ASSESSMENT 78 yo F admit with: 1. Recurrent bacteruria vs true UTI with daughters reporting AMS * -- s/p treatment for UTI with urine culture grew pediococcus * s/p Fosfomycin 3gm PO x1 06/21/18 PM * URINE CULTURE Final Organism 1 MIXED GRAM NEG & POS ORGANISMS COLONY COUNT >100,000 CFU/ml 2. Status post pneumonia with respiratory failure 3. CHF 4. Diabetes 5. End-stage renal disease, hemodialysis dependent 6. Dementia ABX ALLERGIES: AUGMENTIN/CLINDAMYCIN INVASIVES: PIV CURRENT ABX: DAY # Diflucan + Monostat vag suppository + s/p FOSFOMYCIN x1 06/21/18 PM s/p AMOXICILLIN ID RECOMMENDATIONS/PLAN: 1. s/p treatment for concern true UTI per daughters report of AMS * s/p Rx Fosfomycin 3gm po x1 for 06/18/18 Urine Cx (+)GNR/GPC > 100,000 2. Rx Monostat vaginal suppository -- off load perineal yeast due to hx of alternating yeast -> bacterial UTI 3. Yesterday I advised daughters avoid surveillance straight cath UA & Cx -- only check if she has signs or sxs of recurrent UTI. . Consultation Date/Type/Reason Admit Date/Time Jun 18, 2018 at 18:06 Initial Consult Date Date/Time of Note DATE: 06/22/18 TIME: 14:32 Exam/Review of Systems Exam Vitals Vital Signs Date Temp Pulse Resp B/P (MAP) Pulse Ox O2 O2 Flow FiO2 Time Delivery Rate 06/22/18 87 20 95 21 13:20 06/22/18 98.2 167/70 Room Air 07:00 (102) Intake and Output 06/21/18 06/21/18 06/22/18 1414:59 22:59 06:59 IntakeIntake Total 700 ml BalanceBalance 700 ml Results Result Diagram: 06/20/18 0708 06/20/18 0708 Results 24hrs Laboratory Tests Test 06/21/18 18:26 06/21/18 22:14 06/22/18 02:56 06/22/18 08:27 Bedside Glucose 161 192 135 173 Test 06/22/18 13:43 Bedside Glucose 129 Medications Medication Current Medications Docusate Sodium (Colace) 100 mg BID PO Last administered on 06/22/18at 09:00; Admin Dose 100 MG; Start 06/18/18 at 21:00 Senna (Senokot) 1 tab HS PO Last administered on 06/21/18at 22:03; Admin Dose 1 TAB; Start 06/18/18 at 21:00 Lactulose (Enulose) 20 gm DAILY PRN PO CONSTIPATION; Start 06/18/18 at 19:00 Bisacodyl (Dulcolax Supp) 10 mg DAILY PRN [place] CONSTIPATION; Start 06/18/18 at 19:00 Acetaminophen (Tylenol Tab) 650 mg Q4H PRN PO MILD PAIN 1-3 Last administered on 06/21/18at 22:03; Admin Dose 650 MG; Start 06/18/18 at 19:00 Miscellaneous Information [facility] This patient mcclain... PRN PRN XX WOUND CARE; Start 06/18/18 at 19:00 Hydralazine HCl (Apresoline) 100 mg Q8 PO Last administered on 06/22/18at 06:40; Admin Dose 100 MG; Start 06/18/18 at 20:00 Insulin Aspart (Novolog Insulin Pen) NOVOLOG *MILD* ALGORITHM WITH MEALS BEDTIME SC Last administered on 06/22/18at 08:35; Admin Dose 1 UNIT; Start 06/18/18 at 21:00 Lactobacillus Acidophilus/ Rhamnosus (Culturelle) 1 cap BID PO Last administered on 06/22/18at 14:10; Admin Dose 1 CAP; Start 06/18/18 at 21:00 Nystatin (Nystatin Powder) 1 applic BID TOP Last administered on 06/21/18at 21:55; Admin Dose 1 APPLIC; Start 06/18/18 at 21:00 Nystatin (Nystatin Powder) 1 applic NOTE PRN TOP NOTE; Start 06/18/18 at 20:00 Albuterol/ Ipratropium (Duoneb) 3 ml Q6H RESP THERAPY HHN Last administered on 06/22/18at 13:19; Admin Dose 3 ML; Start 06/18/18 at 21:00 Albuterol/ Ipratropium (Duoneb) 3 ml Q6H RESP THERAPY PRN HHN SHORTNESS OF BREATH; Start 06/18/18 at 20:00 Amlodipine Besylate (Norvasc) 5 mg DAILY PO Last administered on 06/21/18at 11:17; Admin Dose 5 MG; Start 06/19/18 at 09:00 Calcium Acetate (Phoslo) 667 mg WITH MEALS PO Last administered on 06/22/18at 1 4:12; Admin Dose 667 MG; Start 06/19/18 at 07:35 Clonidine (Catapres) 0.1 mg Q6H PRN PO SBP ABOVE 170; Start 06/18/18 at 20:00 Collagenase (Santyl) 1 applic Q12 TOP Last administered on 06/22/18at 14:12; Admin Dose 1 APPLIC; Start 06/18/18 at 21:00 Collagenase (Santyl) 1 applic NOTE PRN TOP NOTE Last administered on 06/18/18at 21:44; Admin Dose 1 APPLIC; Start 06/18/18 at 20:00 Desmopressin Acetate (Ddavp Nasal) 4 spray BID NASAL ; Start 06/18/18 at 22:00 Diphenhydramine HCl (Benadryl) 25 mg Q4H PRN IV ITCHING; Start 06/18/18 at 20:00 Fluconazole (Diflucan) 100 mg DAILY PO Last administered on 06/22/18at 14:16; Admin Dose 100 MG; Start 06/19/18 at 09:00 Folic Acid (Folic Acid) 1 mg DAILY PO Last administered on 06/22/18at 14:16; Admin Dose 1 MG; Start 06/19/18 at 09:00 Guaifenesin (Robitussin Liquid Cup) 100 mg Q6 PRN PO COUGH; Start 06/18/18 at 20:00 Lansoprazole (Prevacid) 30 mg DAILY@06 PO Last administered on 06/22/18at 06:40; Admin Dose 30 MG; Start 06/19/18 at 06:00 Levothyroxine Sodium (Synthroid) 50 mcg BEFORE BREAKFAST PO Last administered on 06/22/18at 06:40; Admin Dose 50 MCG; Start 06/19/18 at 07:00 Lorazepam (Ativan) 1 mg Q6H PRN IV ANXIETY; Start 06/18/18 at 20:00 Morphine Sulfate (morphine) 2 mg Q4H PRN IV SEVERE PAIN LEVEL 7-10; Start 06/18/18 at 20:00 Miscellaneous Medication (Bystolic) 5 mg DAILY PO Last administered on 06/19/18at 08:56; Admin Dose 5 MG; Start 06/19/18 at 09:00 Nitroglycerin (Nitroglycerin 2% Oint) 1 inch Q6 PRN TD CHEST PAIN; Start 06/18/18 at 20:00 Ondansetron HCl (Zofran Inj) 4 mg Q6H PRN IV NAUSEA AND/OR VOMITING; Start 06/18/18 at 20:00 Sertraline HCl (Zoloft) 50 mg DAILY PO Last administered on 06/22/18at 14:16; Admin Dose 50 MG; Start 06/19/18 at 09:00 Sevelamer Carbonate (Renvela) 0.8 gm WITH MEALS PO Last administered on 06/22/18at 14:11; Admin Dose 0.8 GM; Start 06/19/18 at 07:35 Petrolatum (Vaseline) 1 applic NOTE PRN TOP NOTE; Start 06/18/18 at 20:30 Vitamin B Complex/ Vitamin C (Berocca) 1 cap DAILY PO Last administered on 06/22/18at 14:17; Admin Dose 1 CAP; Start 06/19/18 at 09:00 Petrolatum (Vaseline) 1 applic BID TOP Last administered on 06/21/18at 21:55; Admin Dose 1 APPLIC; Start 06/18/18 at 21:00 Miscellaneous Information 1 ea NOTE XX ; Start 06/18/18 at 21:30 Glucose (Glutose) 15 gm Q15M PRN PO DECREASED GLUCOSE; Start 06/18/18 at 21:30 Glucose (Glutose) 22.5 gm Q15M PRN PO DECREASED GLUCOSE; Start 06/18/18 at 21:30 Dextrose (D50w Syringe) 25 ml Q15M PRN IV DECREASED GLUCOSE; Start 06/18/18 at 21:30 Dextrose (D50w Syringe) 50 ml Q15M PRN IV DECREASED GLUCOSE; Start 06/18/18 at 21:30 Glucagon (Glucagen) 1 mg Q15M PRN IM DECREASED GLUCOSE; Start 06/18/18 at 21:30 Glucose (Glutose) 15 gm Q15M PRN BUCCAL DECREASED GLUCOSE; Start 06/18/18 at 21:30 Epoetin Festus (Epogen (Esrd)) 10,000 units MoWeFr@17 SC Last administered on 06/20/18at 18:30; Admin Dose 10,000 UNITS; Start 06/20/18 at 17:00 Memantine (Namenda) 5 mg DAILY PO Last administered on 06/22/18at 09:00; Admin Dose 5 MG; Start 06/20/18 at 09:00 Ascorbic Acid (Vitamin C) 500 mg DAILY PO Last administered on 06/22/18at 09:00; Admin Dose 500 MG; Start 06/20/18 at 09:00 Zinc Sulfate (Zinc Sulfate) 220 mg DAILY PO Last administered on 06/22/18at 14:16; Admin Dose 220 MG; Start 06/20/18 at 09:00 Multivitamins Therapeutic (Theragran) 1 tab DAILY PO Last administered on 06/22/18at 14:17; Admin Dose 1 TAB; Start 06/20/18 at 09:00 Patient Own Medication 1 ea MONWEDFRI PRN XX Before dialysis Last administered on 06/20/18at 15:14; Admin Dose 1 EA; Start 06/20/18 at 14:30 Miconazole (Monistat-3) 1 supp HS VAG Last administered on 06/21/18at 21:51; Admin Dose 1 SUPP; Start 06/21/18 at 21:00; Stop 06/23/18 at 21:01 ADONIS ELY NP Jun 22, 2018 14:37
[2018-06-22] MEDS: SENNA TAB PO SCH (20:35)
[2018-06-22] MEDS ORDERED: MICONAZOLE 100 MG VAG SUPP VAG SCH (21:00)
[2018-06-22] MEDS: MICONAZOLE 100 MG VAG SUPP VAG SCH (22:21)
[2018-06-23] MEDS: ALBUTEROL/IPRATROPIUM (NEB) 3 ML AMP HHN SCH ×4 (01:20→19:42)
[2018-06-23 02:08] VITALS: BP 123/60; PULSE 87; RESP 18
[2018-06-23] MEDS: LANSOPRAZOLE 30 MG CAP PO SCH (06:27)
[2018-06-23] MEDS: LEVOTHYROXINE 50 MCG TAB PO SCH (06:27)
[2018-06-23 07:30] VITALS: BP 152/68; PULSE 86; RESP 20
[2018-06-23] MEDS: CALCIUM ACETATE 667 MG CAP PO SCH ×3 (07:35→18:44)
[2018-06-23] MEDS: INSULIN ASPART [NOVOLOG] 3 ML PEN SC SCH ×4 (07:35→21:00)
[2018-06-23] MEDS: DESMOPRESSIN 0.01% 5 ML NASAL NASAL SCH ×2 (08:43→21:00)
--- NOTE | 2018-06-23 08:57 | PN ---
DATE: 06/23/2018 SUBJECTIVE: The patient is stable, no events overnight. OBJECTIVE: VITAL SIGNS: Blood pressure is 123/60, respirations 18, pulse 87, temperature 98.0. HEENT: Head is normocephalic. NECK: Supple. HEART: Regular rate. LUNGS: Show diminished breath sounds at the base. ABDOMEN: Soft, nontender to palpation without rebound or guarding. EXTREMITIES: Negative for clubbing, cyanosis, no edema. DERMATOLOGIC: No rashes. MUSCULOSKELETAL: No joint effusion. NEUROLOGIC: No change in exam. MEDICATIONS: Reviewed. LABORATORY DATA: Reviewed. 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 2. End-stage renal disease. The patient had hemodialysis yesterday. Plan is for dialysis tomorrow. 3. Anemia. Continue to monitor hemoglobin and hematocrit levels. Continue Epogen. 4. Mineral bone disorder, monitor calcium and phosphorus levels. Continue phosphate binders. 5. Right upper extremity deep vein thrombosis. The patient is seen by vascular surgery, no plan for anticoagulation. 6. Acute respiratory failure secondary to pneumonia. The patient is clinically improving. Continue to monitor. Continue bronchodilators. 7. History of heart failure. Continue medical management. Continue ultrafiltration dialysis. 8. Diabetes. Continue current insulin regimen. 9. Dysphagia. Continue modified diet. 10. Urinary tract infection. Continue current antibiotic regimen. 11. Gastrointestinal and deep vein thrombosis prophylaxis. Dictated By: ARTHUR HUERTA DO NR/NTS Conf#: [id number] DID#: [id number] CC: FAY LARES DO; KOLBY PEARSON MD;*End*
[2018-06-23] MEDS: NEBIVOLOL 5 MG TAB PO SCH (09:00)
[2018-06-23] MEDS: VITAMIN B COMPLEX/VIT C CAP PO SCH (09:16)
[2018-06-23] MEDS: DOCUSATE SODIUM 100 MG CAP PO SCH ×2 (09:16→21:14)
[2018-06-23] MEDS: COLLAGENASE 5 GM (UD JAR) TOP SCH ×2 (09:16→21:18)
[2018-06-23] MEDS: FOLIC ACID 1 MG TAB PO SCH (09:16)
[2018-06-23] MEDS: LACTOBACILLUS RHAMNOSUS CAP PO SCH ×2 (09:16→21:14)
[2018-06-23] MEDS: MEMANTINE 5 MG TAB PO SCH (09:16)
[2018-06-23] MEDS: MULTIVITAMINS THERAPEUTIC TAB PO SCH (09:16)
[2018-06-23] MEDS: ZINC SULFATE 220 MG CAP PO SCH (09:16)
[2018-06-23] MEDS: ASCORBIC ACID 500 MG TAB PO SCH (09:16)
[2018-06-23] MEDS: SERTRALINE 50 MG TAB PO SCH (09:16)
[2018-06-23] MEDS: FLUCONAZOLE 100 MG TAB PO SCH (09:16)
[2018-06-23] MEDS: NYSTATIN 30 GM POWDER BTL TOP SCH ×2 (09:17→21:18)
[2018-06-23] MEDS: PETROLATUM 28.35 GM JELLY TOP SCH ×2 (09:17→21:17)
[2018-06-23] MEDS: SEVELAMER CARBONATE 0.8 GM PKT PO SCH ×3 (09:18→18:43)
[2018-06-23] MEDS: AMLODIPINE 5 MG TAB PO SCH (09:28)
--- NOTE | 2018-06-23 13:03 | PN ---
Date/Time of Note Date/Time of Note DATE: 06/23/18 TIME: 13:03 Objective Vital Signs Date Temp Pulse Resp B/P (MAP) Pulse Ox O2 O2 Flow FiO2 Time Delivery Rate 06/23/18 84 18 93 21 07:34 06/23/18 98.2 152/68 Room Air 07:30 (96) Intake and Output 06/22/18 06/22/18 06/23/18 1515:00 23:00 07:00 IntakeIntake Total 650 ml 540 ml OutputOutput Total 2000 ml BalanceBalance -1350 ml 540 ml Exam INTERDISCIPLINARY TEAM CONFERENCE Physical Exam: Pulm-Cta Abd-soft BOWEL- Cont BLADDER- ESRD- HD SKIN- decub improving OT- DRESSING-min/mod BATHING-min/mod TOILETING-mod PT- BED MOBILITY-sba TRANSFERS-min AMBULATION-min 125 feet A/P- Interdisciplinary team conference held today. Please see interdisciplinary sheet. Working toward d.c. on 06/26 with post discharge follow up of physical therapy, occupational therapy. Results/Medications Result Diagram: 06/20/18 0708 06/20/18 0708 Results 24 hrs Laboratory Tests Test 06/22/18 13:43 06/22/18 18:06 06/22/18 20:25 06/23/18 07:39 Bedside Glucose 129 135 143 132 Test 06/23/18 11:58 Bedside Glucose 257 H Medications Current Medications Docusate Sodium (Colace) 100 mg BID PO Last administered on 06/23/18at 09:16; Admin Dose 100 MG; Start 06/18/18 at 21:00 Senna (Senokot) 1 tab HS PO Last administered on 06/22/18at 20:35; Admin Dose 1 TAB; Start 06/18/18 at 21:00 Lactulose (Enulose) 20 gm DAILY PRN PO CONSTIPATION; Start 06/18/18 at 19:00 Bisacodyl (Dulcolax Supp) 10 mg DAILY PRN [place] CONSTIPATION; Start 06/18/18 at 19:00 Acetaminophen (Tylenol Tab) 650 mg Q4H PRN PO MILD PAIN 1-3 Last administered on 06/21/18at 22:03; Admin Dose 650 MG; Start 06/18/18 at 19:00 Miscellaneous Information (Pending [facility] Order For Wound Care) This patient mcclain... PRN PRN XX WOUND CARE; Start 06/18/18 at 19:00 Hydralazine HCl (Apresoline) 100 mg Q8 PO Last administered on 06/23/18 06:27; Admin Dose 100 MG; Start 06/18/18 at 20:00 Insulin Aspart (Novolog Insulin Pen) NOVOLOG *MILD* ALGORITHM WITH MEALS BEDTIME SC Last administered on 06/23/18 12:08; Admin Dose 3 UNIT; Start 06/18/18 at 21:00 Lactobacillus Acidophilus/ Rhamnosus (Culturelle) 1 cap BID PO Last administe red on 06/23/18 09:16; Admin Dose 1 CAP; Start 06/18/18 at 21:00 Nystatin (Nystatin Powder) 1 applic BID TOP Last administered on 06/23/18 09:17; Admin Dose 1 APPLIC; Start 06/18/18 at 21:00 Nystatin (Nystatin Powder) 1 applic NOTE PRN TOP NOTE; Start 06/18/18 at 20:00 Albuterol/ Ipratropium (Duoneb) 3 ml Q6H RESP THERAPY HHN Last administered on 06/23/18 07:34; Admin Dose 3 ML; Start 06/18/18 at 21:00 Albuterol/ Ipratropium (Duoneb) 3 ml Q6H RESP THERAPY PRN HHN SHORTNESS OF BREATH; Start 06/18/18 at 20:00 Amlodipine Besylate (Norvasc) 5 mg DAILY PO Last administered on 06/23/18 09: 28; Admin Dose 5 MG; Start 06/19/18 at 09:00 Calcium Acetate (Phoslo) 667 mg WITH MEALS PO Last administered on 06/23/18 12:05; Admin Dose 667 MG; Start 06/19/18 at 07:35 Clonidine (Catapres) 0.1 mg Q6H PRN PO SBP ABOVE 170; Start 06/18/18 at 20:00 Collagenase (Santyl) 1 applic Q12 TOP Last administered on 06/23/18 09:16; Admin Dose 1 APPLIC; Start 06/18/18 at 21:00 Collagenase (Santyl) 1 applic NOTE PRN TOP NOTE Last administered on 06/18/18 21:44; Admin Dose 1 APPLIC; Start 06/18/18 at 20:00 Desmopressin Acetate (Ddavp Nasal) 4 spray BID NASAL ; Start 06/18/18 at 22:00 Diphenhydramine HCl (Benadryl) 25 mg Q4H PRN IV ITCHING; Start 06/18/18 at 20:00 Fluconazole (Diflucan) 100 mg DAILY PO Last administered on 06/23/18 09:16; Admin Dose 100 MG; Start 06/19/18 at 09:00 Folic Acid (Folic Acid) 1 mg DAILY PO Last administered on 06/23/18 09:16; Admin Dose 1 MG; Start 06/19/18 at 09:00 Guaifenesin (Robitussin Liquid Cup) 100 mg Q6 PRN PO COUGH; Start 06/18/18 at 20:00 Lansoprazole (Prevacid) 30 mg DAILY@06 PO Last administered on 06/23/18 06:27; Admin Dose 30 MG; Start 06/19/18 at 06:00 Levothyroxine Sodium (Synthroid) 50 mcg BEFORE BREAKFAST PO Last administered on 06/23/18 06:27; Admin Dose 50 MCG; Start 06/19/18 at 07:00 Lorazepam (Ativan) 1 mg Q6H PRN IV ANXIETY; Start 06/18/18 at 20:00 Morphine Sulfate (morphine) 2 mg Q4H PRN IV SEVERE PAIN LEVEL 7-10; Start 06/18/18 at 20:00 Miscellaneous Medication (Bystolic) 5 mg DAILY PO Last administered on 06/19/18a t 08:56; Admin Dose 5 MG; Start 06/19/18 at 09:00 Nitroglycerin (Nitroglycerin 2% Oint) 1 inch Q6 PRN TD CHEST PAIN; Start 06/18/18 at 20:00 Ondansetron HCl (Zofran Inj) 4 mg Q6H PRN IV NAUSEA AND/OR VOMITING; Start 06/18/18 at 20:00 Sertraline HCl (Zoloft) 50 mg DAILY PO Last administered on 06/23/18 09:16; Admin Dose 50 MG; Start 06/19/18 at 09:00 Sevelamer Carbonate (Renvela) 0.8 gm WITH MEALS PO Last administered on 06/23/18at 12:05; Admin Dose 0.8 GM; Start 06/19/18 at 07:35 Petrolatum (Vaseline) 1 applic NOTE PRN TOP NOTE; Start 06/18/18 at 20:30 Vitamin B Complex/ Vitamin C (Berocca) 1 cap DAILY PO Last administered on 06/23/18at 09:16; Admin Dose 1 CAP; Start 06/19/18 at 09:00 Miscellaneous Information 1 ea NOTE XX ; Start 06/18/18 at 21:30 Glucose (Glutose) 15 gm Q15M PRN PO DECREASED GLUCOSE; Start 06/18/18 at 21:30 Glucose (Glutose) 22.5 gm Q15M PRN PO DECREASED GLUCOSE; Start 06/18/18 at 21:30 Dextrose (D50w Syringe) 25 ml Q15M PRN IV DECREASED GLUCOSE; Start 06/18/18 at 21:30 Dextrose (D50w Syringe) 50 ml Q15M PRN IV DECREASED GLUCOSE; Start 06/18/18 at 21:30 Glucagon (Glucagen) 1 mg Q15M PRN IM DECREASED GLUCOSE; Start 06/18/18 at 21:30 Glucose (Glutose) 15 gm Q15M PRN BUCCAL DECREASED GLUCOSE; Start 06/18/18 at 21:30 Epoetin Festus (Epogen (Esrd)) 10,000 units MoWeFr@17 SC Last administered on 06/20/18at 18:30; Admin Dose 10,000 UNITS; Start 06/20/18 at 17:00 Memantine (Namenda) 5 mg DAILY PO Last administered on 06/23/18at 09:16; Admin Dose 5 MG; Start 06/20/18 at 09:00 Ascorbic Acid (Vitamin C) 500 mg DAILY PO Last administered on 06/23/18 09:16; Admin Dose 500 MG; Start 06/20/18 at 09:00 Zinc Sulfate (Zinc Sulfate) 220 mg DAILY PO Last administered on 06/23/18 09:16; Admin Dose 220 MG; Start 06/20/18 at 09:00 Multivitamins Therapeutic (Theragran) 1 tab DAILY PO Last administered on 06/23/18 09:16; Admin Dose 1 TAB; Start 06/20/18 at 09:00 Patient Own Medication 1 ea MONWEDFRI PRN XX Before dialysis Last administered on 06/20/18at 15:14; Admin Dose 1 EA; Start 06/20/18 at 14:30 Miconazole (Monistat-7) 2 supp HS VAG Last administered on 06/22/18at 22:21; Admin Dose 2 SUPP; Start 06/22/18 at 22:15; Stop 06/24/18 at 21:01 Petrolatum (Vaseline) 1 applic BID TOP Last administered on 06/23/18at 09:17; Admin Dose 1 APPLIC; Start 06/22/18 at 22:16 KOLBY PEARSON MD Jun 23, 2018 13:03
[2018-06-23 14:00] VITALS: BP 172/79; PULSE 84; RESP 18
[2018-06-23 14:21] VITALS: BP 144/67
--- NOTE | 2018-06-23 14:33 | CONS ---
Assessment/Plan Assessment/Plan Hospital Course (Demo Recall) No acute changes overnight Indwelling's left upper extremity AV graft Antimicrobials: Diflucan Physical examination: This is a fragile well-developed elderly woman who is alert in no distress. Head atraumatic normocephalic sclera nonicteric. Neck is supple. Chest rise symmetrical breath sounds clear. Heart S1-S2 abdomen soft bowel sounds present. Extremities without cyanosis Patient has dependent edema of her feet Assessment: 1. Resolving UTI with urine culture grew pedoicoccus 2. Status post pneumonia with respiratory failure 3. CHF 4. Diabetes 5. End-stage renal disease, hemodialysis dependent 6. Dementia Plan: Patient remains stable, dc Diflucan, continue acute rehab Consultation Date/Type/Reason Admit Date/Time Jun 18, 2018 at 18:06 Initial Consult Date Type of Consult id Date/Time of Note DATE: 06/23/18 TIME: 14:32 Exam/Review of Systems Exam Vitals Vital Signs Date Temp Pulse Resp B/P (MAP) Pulse Ox O2 O2 Flow FiO2 Time Delivery Rate 06/23/18 144/67 14:21 (92) 06/23/18 84 18 93 21 07:34 06/23/18 98.2 Room Air 07:30 Intake and Output 06/22/18 06/22/18 06/23/18 1515:00 23:00 07:00 IntakeIntake Total 650 ml 540 ml OutputOutput Total 2000 ml BalanceBalance -1350 ml 540 ml Results Result Diagram: 06/20/18 0708 06/20/18 0708 Results 24hrs Laboratory Tests Test 06/22/18 18:06 06/22/18 20:25 06/23/18 07:39 06/23/18 11:58 Bedside Glucose 135 143 132 257 H Medications Medication Current Medications Docusate Sodium (Colace) 100 mg BID PO Last administered on 06/23/18at 09:16; Admin Dose 100 MG; Start 06/18/18 at 21:00 Senna (Senokot) 1 tab HS PO Last administered on 06/22/18at 20:35; Admin Dose 1 TAB; Start 06/18/18 at 21:00 Lactulose (Enulose) 20 gm DAILY PRN PO CONSTIPATION; Start 06/18/18 at 19:00 Bisacodyl (Dulcolax Supp) 10 mg DAILY PRN [place] CONSTIPATION; Start 06/18/18 at 19:00 Acetaminophen (Tylenol Tab) 650 mg Q4H PRN PO MILD PAIN 1-3 Last administered on 06/21/18 22:03; Admin Dose 650 MG; Start 06/18/18 at 19:00 Miscellaneous Information (Pending [facility] Order For Wound Care) This patient mcclain... PRN PRN XX WOUND CARE; Start 06/18/18 at 19:00 Hydralazine HCl (Apresoline) 100 mg Q8 PO Last administered on 06/23/18 14:01; Admin Dose 100 MG; Start 06/18/18 at 20:00 Insulin Aspart (Novolog Insulin Pen) NOVOLOG *MILD* ALGORITHM WITH MEALS BEDTIME SC Last administered on 06/23/18 12:08; Admin Dose 3 UNIT; Start 06/18/18 at 21:00 Lactobacillus Acidophilus/ Rhamnosus (Culturelle) 1 cap BID PO Last administered on 06/23/18 09:16; Admin Dose 1 CAP; Start 06/18/18 at 21:00 Nystatin (Nystatin Powder) 1 applic BID TOP Last administered on 06/23/18 09:17; Admin Dose 1 APPLIC; Start 06/18/18 at 21:00 Nystatin (Nystatin Powder) 1 applic NOTE PRN TOP NOTE; Start 06/18/18 at 20:00 Albuterol/ Ipratropium (Duoneb) 3 ml Q6H RESP THERAPY HHN Last administered on 06/23/18 07:34; Admin Dose 3 ML; Start 06/18/18 at 21:00 Albuterol/ Ipratropium (Duoneb) 3 ml Q6H RESP THERAPY PRN HHN SHORTNESS OF BREATH; Start 06/18/18 at 20:00 Amlodipine Besylate (Norvasc) 5 mg DAILY PO Last administered on 06/23/18 09:28; Admin Dose 5 MG; Start 06/19/18 at 09:00 Calcium Acetate (Phoslo) 667 mg WITH MEALS PO Last administered on 06/23/18 12:05; Admin Dose 667 MG; Start 06/19/18 at 07:35 Clonidine (Catapres) 0.1 mg Q6H PRN PO SBP ABOVE 170; Start 06/18/18 at 20:00 Collagenase (Santyl) 1 applic Q12 TOP Last administered on 06/23/18 09:16; Admin Dose 1 APPLIC; Start 06/18/18 at 21:00 Collagenase (Santyl) 1 applic NOTE PRN TOP NOTE Last administered on 06/18/18at 21:44; Admin Dose 1 APPLIC; Start 06/18/18 at 20:00 Desmopressin Acetate (Ddavp Nasal) 4 spray BID NASAL ; Start 06/18/18 at 22:00 Diphenhydramine HCl (Benadryl) 25 mg Q4H PRN IV ITCHING; Start 06/18/18 at 20:00 Fluconazole (Diflucan) 100 mg DAILY PO Last administered on 06/23/18 09:16; Admin Dose 100 MG; Start 06/19/18 at 09:00 Folic Acid (Folic Acid) 1 mg DAILY PO Last administered on 06/23/18 09:16; Admin Dose 1 MG; Start 06/19/18 at 09:00 Guaifenesin (Robitussin Liquid Cup) 100 mg Q6 PRN PO COUGH; Start 06/18/18 at 20:00 Lansoprazole (Prevacid) 30 mg DAILY@06 PO Last administered on 06/23/18 06:27; Admin Dose 30 MG; Start 06/19/18 at 06:00 Levothyroxine Sodium (Synthroid) 50 mcg BEFORE BREAKFAST PO Last administered on 06/23/18 06:27; Admin Dose 50 MCG; Start 06/19/18 at 07:00 Lorazepam (Ativan) 1 mg Q6H PRN IV ANXIETY; Start 06/18/18 at 20:00 Morphine Sulfate (morphine) 2 mg Q4H PRN IV SEVERE PAIN LEVEL 7-10; Start 06/18/18 at 20:00 Miscellaneous Medication (Bystolic) 5 mg DAILY PO Last administered on 06/19/18 08:56; Admin Dose 5 MG; Start 06/19/18 at 09:00 Nitroglycerin (Nitroglycerin 2% Oint) 1 inch Q6 PRN TD CHEST PAIN; Start 06/18/18 at 20:00 Ondansetron HCl (Zofran Inj) 4 mg Q6H PRN IV NAUSEA AND/OR VOMITING; Start 06/18/18 at 20:00 Sertraline HCl (Zoloft) 50 mg DAILY PO Last administered on 06/23/18 09:16; Admin Dose 50 MG; Start 06/19/18 at 09:00 Sevelamer Carbonate (Renvela) 0.8 gm WITH MEALS PO Last administered on 06/23/18at 12:05; Admin Dose 0.8 GM; Start 06/19/18 at 07:35 Petrolatum (Vaseline) 1 applic NOTE PRN TOP NOTE; Start 06/18/18 at 20:30 Vitamin B Complex/ Vitamin C (Berocca) 1 cap DAILY PO Last administered on 06/23/18 09:16; Admin Dose 1 CAP; Start 06/19/18 at 09:00 Miscellaneous Information 1 ea NOTE XX ; Start 06/18/18 at 21:30 Glucose (Glutose) 15 gm Q15M PRN PO DECREASED GLUCOSE; Start 06/18/18 at 21:30 Glucose (Glutose) 22.5 gm Q15M PRN PO DECREASED GLUCOSE; Start 06/18/18 at 21:30 Dextrose (D50w Syringe) 25 ml Q15M PRN IV DECREASED GLUCOSE; Start 06/18/18 at 21:30 Dextrose (D50w Syringe) 50 ml Q15M PRN IV DECREASED GLUCOSE; Start 06/18/18 at 21:30 Glucagon (Glucagen) 1 mg Q15M PRN IM DECREASED GLUCOSE; Start 06/18/18 at 21:30 Glucose (Glutose) 15 gm Q15M PRN BUCCAL DECREASED GLUCOSE; Start 06/18/18 at 21:30 Epoetin Festus (Epogen (Esrd)) 10,000 units MoWeFr@17 SC Last administered on 06/20/18at 18:30; Admin Dose 10,000 UNITS; Start 06/20/18 at 17:00 Memantine (Namenda) 5 mg DAILY PO Last administered on 06/23/18 09:16; Admin Dose 5 MG; Start 06/20/18 at 09:00 Ascorbic Acid (Vitamin C) 500 mg DAILY PO Last administered on 06/23/18 09:16; Admin Dose 500 MG; Start 06/20/18 at 09:00 Zinc Sulfate (Zinc Sulfate) 220 mg DAILY PO Last administered on 06/23/18 09:16; Admin Dose 220 MG; Start 06/20/18 at 09:00 Multivitamins Therapeutic (Theragran) 1 tab DAILY PO Last administered on 06/23/18 09:16; Admin Dose 1 TAB; Start 06/20/18 at 09:00 Patient Own Medication 1 ea MONWEDFRI PRN XX Before dialysis Last administered on 06/20/18at 15:14; Admin Dose 1 EA; Start 06/20/18 at 14:30 Miconazole (Monistat-7) 2 supp HS VAG Last administered on 06/22/18at 22:21; Admin Dose 2 SUPP; Start 06/22/18 at 22:15; Stop 06/24/18 at 21:01 Petrolatum (Vaseline) 1 applic BID TOP Last administered on 06/23/18at 09:17; Admin Dose 1 APPLIC; Start 06/22/18 at 22:16 TANNER DREW NP Jun 23, 2018 14:33
[2018-06-23] MEDS: EPOETIN 10000 UNITS/1 ML INJ (ESRD) SC SCH (18:43)
[2018-06-23 20:00] VITALS: BP 141/64; PULSE 93; RESP 18
[2018-06-23] MEDS: ACETAMINOPHEN 325 MG TAB PO PRN (20:04)
[2018-06-23] MEDS ORDERED: AL HYDROX/MG HYDROX/SIMETH 30 ML CUP PO PRN (20:30)
[2018-06-23] MEDS ORDERED: FAMOTIDINE 20 MG TAB PO SCH (21:00)
[2018-06-23] MEDS ORDERED: MICONAZOLE 100 MG VAG SUPP VAG SCH (21:00)
[2018-06-23] MEDS: SENNA TAB PO SCH (21:14)
[2018-06-23] MEDS: MICONAZOLE 100 MG VAG SUPP VAG SCH (22:05)
[2018-06-23] MEDS: FAMOTIDINE 20 MG TAB PO PRN (22:05)
[2018-06-24] VITALS (20 sets, daily range): BP systolic 120–144; BP diastolic 48–65; PULSE 83–95; RESP 18–20
[2018-06-24] MEDS: ALBUTEROL/IPRATROPIUM (NEB) 3 ML AMP HHN SCH ×4 (01:16→19:19)
[2018-06-24] MEDS: LANSOPRAZOLE 30 MG CAP PO SCH (06:25)
[2018-06-24] MEDS: LEVOTHYROXINE 50 MCG TAB PO SCH (06:25)
[2018-06-24] MEDS: INSULIN ASPART [NOVOLOG] 3 ML PEN SC SCH ×4 (07:35→22:05)
[2018-06-24] MEDS: SEVELAMER CARBONATE 0.8 GM PKT PO SCH ×3 (07:54→17:35)
[2018-06-24] MEDS: CALCIUM ACETATE 667 MG CAP PO SCH ×3 (07:54→19:21)
[2018-06-24] MEDS: NEBIVOLOL 5 MG TAB PO SCH ×2 (09:00→10:14)
[2018-06-24] MEDS: PETROLATUM 28.35 GM JELLY TOP SCH ×2 (09:00→21:31)
[2018-06-24] MEDS: MULTIVITAMINS THERAPEUTIC TAB PO SCH (09:00)
[2018-06-24] MEDS: DESMOPRESSIN 0.01% 5 ML NASAL NASAL SCH ×2 (09:00→21:00)
--- NOTE | 2018-06-24 09:26 | PN ---
DATE: 06/24/2018 SUBJECTIVE: The patient is stable. The patient overnight had an episode of shoulder pain and chest p ain, since resolved. No other events noted. OBJECTIVE: VITAL SIGNS: Blood pressure is 143/65, respirations 18, pulse 74, temperature 98.5. HEENT: Head is normocephalic. NECK: Supple. HEART: Regular rate. LUNGS: Show diminished breath sounds at the base. ABDOMEN: Soft, nontender to palpation without rebound or guarding. EXTREMITIES: Negative for clubbing, cyanosis. Positive tenderness to palpation on the right posteri or shoulder. DERMATOLOGIC: No rashes. MUSCULOSKELETAL: No joint effusion. NEUROLOGIC: No change in exam. MEDICATIONS: The patient's medications have been reviewed. LABORATORY DATA: Shows white count 3.9, 7.9, platelet count 221. Sodium 132, BUN 46, creatinin e 3.24. 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 2. Episode of chest pain, since resolved. Likely musculoskeletal. [employer] consult was placed for evaluation. 3. Left shoulder pain. X-ray was obtained to rule out fracture. Continue to monitor. 4. End-stage renal disease. Plan for hemodialysis today. 5. Anemia. Monitor H and H levels. Continue Epogen. 6. Mineral bone disorder, monitor calcium and phosphorus levels. Continue phosphatase binders. 7. Right upper extremity DVT. Continue to monitor. No plan for anticoagulation. 8. Acute respiratory failure secondary to pneumonia. Patient completing antibiotic course per Infec tious Disease. 9. History of heart failure. Continue medical management. 10. Diabetes. Continue current insulin management. 11. Dysphagia. Continue modified diet. 12. Urinary tract infection. Continue antibiotic regimen. 13. Gastrointestinal and deep venous thrombosis prophylaxis 14. Dementia. Continue Namenda. Dictated By: ARTHUR HUERTA DO NR/NTS Conf#: [id number] DID#: [id number] CC: KOLBY PEARSON MD; FAY LARES DO;*EndCC*
[2018-06-24] MEDS: DOCUSATE SODIUM 100 MG CAP PO SCH ×2 (10:07→21:27)
[2018-06-24] MEDS: VITAMIN B COMPLEX/VIT C CAP PO SCH (10:13)
[2018-06-24] MEDS: SERTRALINE 50 MG TAB PO SCH (10:14)
[2018-06-24] MEDS: FOLIC ACID 1 MG TAB PO SCH (10:14)
[2018-06-24] MEDS: ASCORBIC ACID 500 MG TAB PO SCH (10:14)
[2018-06-24] MEDS: MEMANTINE 5 MG TAB PO SCH (10:14)
[2018-06-24] MEDS: LACTOBACILLUS RHAMNOSUS CAP PO SCH ×2 (10:15→21:26)
[2018-06-24] MEDS: FAMOTIDINE 20 MG TAB PO PRN (10:15)
[2018-06-24] MEDS: ZINC SULFATE 220 MG CAP PO SCH (10:15)
[2018-06-24] MEDS: AMLODIPINE 5 MG TAB PO SCH (10:15)
[2018-06-24] MEDS ORDERED: LORAZEPAM 1 MG TAB PO PRN (11:30)
[2018-06-24] MEDS: NYSTATIN 30 GM POWDER BTL TOP SCH ×2 (12:17→21:30)
[2018-06-24] MEDS: COLLAGENASE 5 GM (UD JAR) TOP SCH ×2 (12:18→21:30)
--- NOTE | 2018-06-24 13:13 | PN ---
Date/Time of Note Date/Time of Note DATE: 06/24/18 TIME: 13:13 Subjective No new complaints Objective Vital Signs Date Temp Pulse Resp B/P (MAP) Pulse Ox O2 O2 Flow FiO2 Time Delivery Rate 06/24/18 90 18 95 21 09:03 06/24/18 98.5 143/65 Room Air 07:00 (91) Intake and Output 06/23/18 06/23/18 06/24/18 1515:00 23:00 07:00 IntakeIntake Total 640 ml BalanceBalance 640 ml Exam pulm-cta abd-soft integ-improving sba abmulation Results/Medications Result Diagram: 06/24/18 0606/24/18 06 Results 24 hrs Laboratory Tests Test 06/23/18 17:00 06/23/18 18:56 06/23/18 21:00 06/23/18 21:09 Bedside Glucose 184 135 155 Urine Color CHER Urine Clarity CLOUDY A Urine pH 7.0 Urine Specific 1.014 [place] Urine Ketones NEGATIVE Urine Nitrite NEGATIVE Urine Bilirubin NEGATIVE Urine Urobilinogen NEGATIVE Urine Leukocyte TRACE A Esterase Urine Microscopic > 182 H RBC Urine Microscopic 13 H WBC Urine Squamous MODERATE Epithelial Cells Urine Bacteria FEW A Urine Hemoglobin 1+ H Urine Glucose 1+ H Urine Total Protein 3+ H Test 06/24/18 06:19 06/24/18 07:52 06/24/18 12:15 White Blood Count 3.9 L Red Blood Count 2.93 L Hemoglobin 7.9 L Hematocrit 25.2 L Mean Corpuscular 86.0 Volume Mean Corpuscular 27.0 L Hemoglobin Mean Corpuscular 31.3 L Hemoglobin Concent Red Cell 15.5 H Distribution Width Platelet Count 221 Mean Platelet Volume 10.1 Immature 0.000 L Granulocytes % Neutrophils % 58.2 Lymphocytes % 30.1 Monocytes % 9.1 Eosinophils % 2.1 Basophils % 0.5 Nucleated Red Blood 0.0 Cells % Immature 0.000 Granulocytes # Neutrophils # 2.2 Lymphocytes # 1.2 Monocytes # 0.4 Eosinophils # 0.1 Basophils # 0.0 Nucleated Red Blood 0.0 Cells # Sodium Level 132 L Potassium Level 4.0 Chloride Level 92 L Carbon Dioxide Level 28 Anion Gap 12 Blood Urea Nitrogen 46 H Creatinine 3.24 H Est Glomerular Filtrat Rate mL/min Glucose Level 122 Calcium Level 8.9 Phosphorus Level 3.8 Magnesium Level 1.8 Bedside Glucose 133 195 Medications Current Medications Docusate Sodium (Colace) 100 mg BID PO Last administered on 06/24/18 10:07; Admin Dose 100 MG; Start 06/18/18 at 21:00 Senna (Senokot) 1 tab HS PO Last administered on 06/23/18 21:14; Admin Dose 1 TAB; Start 06/18/18 at 21:00 Lactulose (Enulose) 20 gm DAILY PRN PO CONSTIPATION; Start 06/18/18 at 19:00 Bisacodyl (Dulcolax Supp) 10 mg DAILY PRN [place] CONSTIPATION; Start 06/18/18 at 19:00 Acetaminophen (Tylenol Tab) 650 mg Q4H PRN PO MILD PAIN 1-3 Last administered on 06/23/18 20:04; Admin Dose 650 MG; Start 06/18/18 at 19:00 Miscellaneous Information (Pending Santyl Order For Wound Care) This patient mcclain ... PRN PRN XX WOUND CARE; Start 06/18/18 at 19:00 Hydralazine HCl (Apresoline) 100 mg Q8 PO Last administered on 06/24/18 06:25; Admin Dose 100 MG; Start 06/18/18 at 20:00 Insulin Aspart (Novolog Insulin Pen) NOVOLOG *MILD* ALGORITHM WITH MEALS BEDTIME SC Last administered on 06/24/18 12:28; Admin Dose 2 UNIT; Start 06/18/18 at 21:00 Lactobacillus Acidophilus/ Rhamnosus (Culturelle) 1 cap BID PO Last administered on 06/24/18 10:15; Admin Dose 1 CAP; Start 06/18/18 at 21:00 Nystatin (Nystatin Powder) 1 applic BID TOP Last administered on 06/24/18 12:17; Admin Dose 1 APPLIC; Start 06/18/18 at 21:00 Nystatin (Nystatin Powder) 1 applic NOTE PRN TOP NOTE; Start 06/18/18 at 20:00 Albuterol/ Ipratropium (Duoneb) 3 ml Q6H RESP THERAPY HHN Last administered on 06/24/18 09:02; Admin Dose 3 ML; Start 06/18/18 at 21:00 Albuterol/ Ipratropium (Duoneb) 3 ml Q6H RESP THERAPY PRN HHN SHORTNESS OF BREATH; Start 06/18/18 at 20:00 Amlodipine Besylate (Norvasc) 5 mg DAILY PO Last administered on 06/24/18 10:15; Admin Dose 5 MG; Start 06/19/18 at 09:00 Calcium Acetate (Phoslo) 667 mg WITH MEALS PO Last administered on 06/24/18 12:17; Admin Dose 667 MG; Start 06/19/18 at 07:35 Clonidine (Catapres) 0.1 mg Q6H PRN PO SBP ABOVE 170; Start 06/18/18 at 20:00 Collagenase (Santyl) 1 applic Q12 TOP Last administered on 06/24/18 12:18; Admin Dose 1 APPLIC; Start 06/18/18 at 21:00 Collagenase (Santyl) 1 applic NOTE PRN TOP NOTE Last administered on 06/18/18 21:44; Admin Dose 1 APPLIC; Start 06/18/18 at 20:00 Desmopressin Acetate (Ddavp Nasal) 4 spray BID NASAL ; Start 06/18/18 at 22:00 Diphenhydramine HCl (Benadryl) 25 mg Q4H PRN IV ITCHING; Start 06/18/18 at 20:00 Folic Acid (Folic Acid) 1 mg DAILY PO Last administered on 06/24/18 10:14; Admin Dose 1 MG; Start 06/19/18 at 09:00 Guaifenesin (Robitussin Liquid Cup) 100 mg Q6 PRN PO COUGH; Start 06/18/18 at 20:00 Lansoprazole (Prevacid) 30 mg DAILY@06 PO Last administered on 06/24/18 06:25; Admin Dose 30 MG; Start 06/19/18 at 06:00 Levothyroxine Sodium (Synthroid) 50 mcg BEFORE BREAKFAST PO Last administered on 06/24/18 06:25; Admin Dose 50 MCG; Start 06/19/18 at 07:00 Lorazepam (Ativan) 1 mg Q6H PRN IV ANXIETY; Start 06/18/18 at 20:00 Morphine Sulfate (morphine) 2 mg Q4H PRN IV SEVERE PAIN LEVEL 7-10; Start 06/18/18 at 20:00 Miscellaneous Medication (Bystolic) 5 mg DAILY PO Last administered on 06/24/18a t 10:14; Admin Dose 5 MG; Start 06/19/18 at 09:00 Nitroglycerin (Nitroglycerin 2% Oint) 1 inch Q6 PRN TD CHEST PAIN; Start 06/18/18 at 20:00 Ondansetron HCl (Zofran Inj) 4 mg Q6H PRN IV NAUSEA AND/OR VOMITING; Start 06/18/18 at 20:00 Sertraline HCl (Zoloft) 50 mg DAILY PO Last administered on 06/24/18at 10:14; Admin Dose 50 MG; Start 06/19/18 at 09:00 Sevelamer Carbonate (Renvela) 0.8 gm WITH MEALS PO Last administered on 06/24/18 12:16; Admin Dose 0.8 GM; Start 06/19/18 at 07:35 Petrolatum (Vaseline) 1 applic NOTE PRN TOP NOTE; Start 06/18/18 at 20:30 Vitamin B Complex/ Vitamin C (Berocca) 1 cap DAILY PO Last administered on 06/24/18 10:13; Admin Dose 1 CAP; Start 06/19/18 at 09:00 Miscellaneous Information 1 ea NOTE XX ; Start 06/18/18 at 21:30 Glucose (Glutose) 15 gm Q15M PRN PO DECREASED GLUCOSE; Start 06/18/18 at 21:30 Glucose (Glutose) 22.5 gm Q15M PRN PO DECREASED GLUCOSE; Start 06/18/18 at 21:30 Dextrose (D50w Syringe) 25 ml Q15M PRN IV DECREASED GLUCOSE; Start 06/18/18 at 21:30 Dextrose (D50w Syringe) 50 ml Q15M PRN IV DECREASED GLUCOSE; Start 06/18/18 at 21:30 Glucagon (Glucagen) 1 mg Q15M PRN IM DECREASED GLUCOSE; Start 06/18/18 at 21:30 Glucose (Glutose) 15 gm Q15M PRN BUCCAL DECREASED GLUCOSE; Start 06/18/18 at 21:30 Epoetin Festus (Epogen (Esrd)) 10,000 units MoWeFr@17 SC Last administered on 06/23/18at 18:43; Admin Dose 10,000 UNITS; Start 06/20/18 at 17:00 Memantine (Namenda) 5 mg DAILY PO Last administered on 06/24/18at 10:14; Admin Dose 5 MG; Start 06/20/18 at 09:00 Ascorbic Acid (Vitamin C) 500 mg DAILY PO Last administered on 06/24/18 10:14; Admin Dose 500 MG; Start 06/20/18 at 09:00 Zinc Sulfate (Zinc Sulfate) 220 mg DAILY PO Last administered on 06/24/18 10:15; Admin Dose 220 MG; Start 06/20/18 at 09:00 Multivitamins Therapeutic (Theragran) 1 tab DAILY PO Last administered on 06/24/18 09:00; Admin Dose 1 TAB; Start 06/20/18 at 09:00 Patient Own Medication 1 ea MONWEDFRI PRN XX Before dialysis Last administered on 06/20/18 15:14; Admin Dose 1 EA; Start 06/20/18 at 14:30 Miconazole (Monistat-7) 2 supp HS VAG Last administered on 06/23/18 22:05; Admin Dose 2 SUPP; Start 06/22/18 at 22:15; Stop 06/24/18 at 21:01 Petrolatum (Vaseline) 1 applic BID TOP Last administered on 06/24/18 09:00; Admin Dose 1 APPLIC; Start 06/22/18 at 22:16 Al Hydrox/Mg Hydrox/Simethicone (Mag-Al Plus) 30 ml Q4H PRN PO GASTROINTESTINAL UPSET; Start 06/23/18 at 20:30 Famotidine (Pepcid) 20 mg HS PRN PO GASTROINTESTINAL UPSET Last administered on 06/24/18 10:15; Admin Dose 20 MG; Start 06/23/18 at 22:00 Lorazepam (Ativan) 1 mg Q6H PRN PO ANXIETY; Start 06/24/18 at 11:30 Assessment/Plan Additional Assessment/Plan Rehab- Critical illness myopathy; Pulmonary debility status post acute respiratory failure, pneumonia Great progress, Continue rehab End-stage renal disease, on hemodialysis. Dysphagia. Diabetes mellitus. Stage III sacral decubitus ulcer- wound care, overall improving KOLBY PEARSON MD Jun 24, 2018 13:13
--- NOTE | 2018-06-24 13:34 | RADRPT ---
Echocardiogram Report Patient Name: ANGIE ARMIJOPatient ID: [id number] : 1940 (78y 1m)Study Date: 06/24/2018 11:44:43 AM Gender: FAccession #: [id number] Tech: Kamran Dumont [facility] Location: [id number] Ref.Physician: PRIETO LLANES Height(Cm): BSA: Weight(Kg): Quality: AdequateAccount #: Procedures: Echocardiographic Report: Transthoracic echocardiogram with complete 2D, M-Mode, and doppler examination. Indications: Congestive Heart Failure. Measurements: 2D/M Mode Doppler Measurement Value Normal Range Measurement Value Normal Range LVIDd 2D 3.7 [ 3.8 - 5.2 ] cm AV Peak Johnnie 1.8 [ 100.0 - 170.0 ] cm/sec LVIDs 2D 2.4 [ 2.2 - 3.5 ] cm AV Peak PG 13.0 [ 2.0 - 9.0 ] mmHg LVPWd 2D 1.1 [ 0.6 - 0.9 ] cm LVOT Peak Johnnie 1.1 [ 70.0 - 110.0 ] cm/sec IVSd 2D 1.4 [ 0.6 - 0.9 ] cm LVOT Peak PG 4.0 [ 2.0 - 6.0 ] mmHg IVS/LVPW 2D 1.2 ratio MV E Peak Johnnie 0.9 [ 60.0 - 130.0 ] cm/sec AoR Diam 2D 2.6 [ 2.3 - 3.1 ] cm MV A Peak Johnnie 1.3 [ 100.0 - 120.0 ] cm/sec LA/Ao 2D 1 ratio MV E/A 0.7 [ 0.8 - 1.5 ] ratio LA Dimen 2D 3.7 [ 2.7 - 3.8 ] cm MV Decel Time 176 [ 104 - 258 ] msec Lat E` Johnnie 0.2 [ 10.0 - 15.0 ] cm/sec MV E/A 0.7 [ 0.8 - 1.5 ] ratio TR Peak Johnnie 3.0 [ 100.0 - 280.0 ] cm/sec TR Peak PG 35.0 mmHg RVSP 45.0 [ 10.0 - 36.0 ] mmHg Findings: Left Ventricle: Normal left ventricular systolic function. Normal left ventricular cavity size. Sigmoid septum. Ejection fraction is visually estimated at 60 %. Tissue Doppler/Mitral Doppler indices are consistent with pseudonormalization with mildly elevated left atrial pressure (Stage II diastolic dysfunction). Right Ventricle: Normal right ventricular size. Normal right ventricular systolic function. Left Atrium: The left atrium is normal in size. Right Atrium: The right atrium is normal in size. Mitral Valve: Mild mitral leaflet calcification. Mild mitral annular calcification. Trace mitral regurgitation. Aortic Valve: No significant aortic stenosis or insufficiency. Aortic cusps appear mildly calcified. Tricuspid Valve: Normal appearance of the tricuspid valve. Estimated peak PA systolic pressure 45 mmHg. There is mild tricuspid regurgitation. Pulmonic Valve: Pulmonic valve not well visualized. Pericardium: Normal pericardium with no significant pericardial effusion. Aorta: Normal aortic root. IVC: Normal size and normal respiratory collapse consistent with normal right atrial pressure. Conclusions: Normal left ventricular systolic function. Normal left ventricular cavity size. Sigmoid septum. Ejection fraction is visually estimated at 60 %. Tissue Doppler/Mitral Doppler indices are consistent with pseudonormalization with mildly elevated left atrial pressure (Stage II diastolic dysfunction). Mild mitral leaflet calcification. Mild mitral annular calcification. Trace mitral regurgitation. No significant aortic stenosis or insufficiency. Aortic cusps appear mildly calcified. Normal appearance of the tricuspid valve. Estimated peak PA systolic pressure 45 mmHg. There is mild tricuspid regurgitation. Electronically Signed By: Prieto Llanes 2018-06-24 13:34:01 PDT
--- NOTE | 2018-06-24 14:03 | CONS ---
Assessment/Plan Assessment/Plan Hospital Course (Demo Recall) 1. Shoulder pain does not appear to be related to coronary artery disease 2. Hypertension: Under control 3. Renal failure on dialysis 4. Dyslipidemia 5. Status post pneumonia. 6. Debility 7. Upper extremity DVT after PIC line placement 8. History of hypothyroidism on thyroid supplement Recommendations: Continue with risk factor modifications. Hemodialysis as per renal Continue with blood pressure control Continue physical therapy as tolerated Thank you for his referral. We will continue to follow along with you PRIETO CALERO MD [facility] Consultation Date/Type/Reason Admit Date/Time Jun 18, 2018 at 18:06 Date of Consultation: Jun 24, 2018 Type of Consult Cardiology Reason for Consultation r/o ACS Date/Time of Note DATE: 06/24/18 TIME: 13:57 Hx of Present Illness Interventional cardiology consultation note Chief complaint: Debility Reason for consult: Shoulder pain rule out coronary artery disease History of present illness: Thank you for this referral. There was then from the patient from the patient daughter review of the chart discussion physician staff. This is a 78-year-old female with a past medical history of diabetes, hypertension, history of CKD stage IV/V, who was initially admitted to outside hospital in [facility]. The patient during that admission was sebastián gnosed with pneumonia, was in CHF/fluid overload. The patient, while in [place], was initiated on hemodialysis. The patient had a recent AV fistula placed in the left upper extremity in preparation for dialysis. However, the patient was not initiated on dialysis prior to admission to [facility]. While in [place], the patient was also treated with antibiotics, steroids. The patient, however, had a decline in her respiratory status, requiring intubation. The patient was eventually extubated and was transferred to [facility] for continued care. While in [place], the patient continued antibiotic therapy for pneumonia. The patient was also diagnosed with urinary tract inf ection. The patient was also on intermittent dialysis during the course in [place]. The patient, however, had a significant decline in premorbid conditions. 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 History patient has complained of bilateral upper shoulder pain. Family was concerned about coronary artery disease were kindly asked to evaluate the patient. Patient denies any left-sided chest pain or pressure denies any history of coronary artery disease or TX or PCI in the past PAST MEDICAL HISTORY: See above. History of diabetes, hypertension, history of end-stage renal disease, history of anemia, mineral bone disorder, history of peptic ulcer disease. while at [place] was also diagnosed with a right upper extremity DVT, felt to be secondary to IV line. The patient was seen by vascular surgeon. Recommendation was to monitor, to elevate the upper extremity. There was no plan for antiplatelet therapy as the patient has a previous history of GI bleeding and peptic ulcer disease. PAST SURGICAL HISTORY: Status post AV fistula. FAMILY HISTORY: No family history of kidney disease. SOCIAL HISTORY: Does not drink, smoke or do drugs. MEDICATIONS: The patient's medications have been reviewed. Allergies to amoxicillin gentamicin Review of system: According to patient's daughter patient has very bleeding tendency and easily bleeds Patient denies all others except for above-mentioned Past Medical History Medications Current Medications Docusate Sodium (Colace) 100 mg BID PO Last administered on 06/24/18 10:07; Admin Dose 100 MG; Start 06/18/18 at 21:00 Senna (Senokot) 1 tab HS PO Last administered on 06/23/18 21:14; Admin Dose 1 TAB; Start 06/18/18 at 21:00 Lactulose (Enulose) 20 gm DAILY PRN PO CONSTIPATION; Start 06/18/18 at 19:00 Bisacodyl (Dulcolax Supp) 10 mg DAILY PRN RI CONSTIPATION; Start 06/18/18 at 19:00 Acetaminophen (Tylenol Tab) 650 mg Q4H PRN PO MILD PAIN 1-3 Last administered on 06/23/18 20:04; Admin Dose 650 MG; Start 06/18/18 at 19:00 [facility]isc[facility] This patient mcclain... PRN PRN XX WOUND CARE; Start 06/18/18 at 19:00 Hydralazine HCl (Apresoline) 100 mg Q8 PO Last administered on 06/24/18 06:25; Admin Dose 100 MG; Start 06/18/18 at 20:00 Insulin Aspart (Novolog Insulin Pen) NOVOLOG *MILD* ALGORITHM WITH MEALS BEDTIME SC Last administered on 06/24/18 12:28; Admin Dose 2 UNIT; Start 06/18/18 at 21:00 Lactobacillus Acidophilus/ Rhamnosus (Culturelle) 1 cap BID PO Last administered on 06/24/18 10:15; Admin Dose 1 CAP; Start 06/18/18 at 21:00 Nystatin (Nystatin Powder) 1 applic BID TOP Last administered on 06/24/18 12:17; Admin Dose 1 APPLIC; Start 06/18/18 at 21:00 Nystatin (Nystatin Powder) 1 applic NOTE PRN TOP NOTE; Start 06/18/18 at 20:00 Albuterol/ Ipratropium (Duoneb) 3 ml Q6H RESP THERAPY HHN Last administered on 06/24/18 13:55; Admin Dose 3 ML; Start 06/18/18 at 21:00 Albuterol/ Ipratropium (Duoneb) 3 ml Q6H RESP THERAPY PRN HHN SHORTNESS OF BREATH; Start 06/18/18 at 20:00 Amlodipine Besylate (Norvasc) 5 mg DAILY PO Last administered on 06/24/18 10:15; Admin Dose 5 MG; Start 06/19/18 at 09:00 Calcium Acetate (Phoslo) 667 mg WITH MEALS PO Last administered on 06/24/18 12:17; Admin Dose 667 MG; Start 06/19/18 at 07:35 Clonidine (Catapres) 0.1 mg Q6H PRN PO SBP ABOVE 170; Start 06/18/18 at 20:00 Collagenase (Santyl) 1 applic Q12 TOP Last administered on 06/24/18 12:18; Admin Dose 1 APPLIC; Start 06/18/18 at 21:00 Collagenase (Santyl) 1 applic NOTE PRN TOP NOTE Last administered on 06/18/18at 21:44; Admin Dose 1 APPLIC; Start 06/18/18 at 20:00 Desmopressin Acetate (Ddavp Nasal) 4 spray BID NASAL ; Start 06/18/18 at 22:00 Diphenhydramine HCl (Benadryl) 25 mg Q4H PRN IV ITCHING; Start 06/18/18 at 20:00 Folic Acid (Folic Acid) 1 mg DAILY PO Last administered on 06/24/18 10:14; Admin Dose 1 MG; Start 06/19/18 at 09:00 Guaifenesin (Robitussin Liquid Cup) 100 mg Q6 PRN PO COUGH; Start 06/18/18 at 20:00 Lansoprazole (Prevacid) 30 mg DAILY@06 PO Last administered on 06/24/18 06:25; Admin Dose 30 MG; Start 06/19/18 at 06:00 Levothyroxine Sodium (Synthroid) 50 mcg BEFORE BREAKFAST PO Last administered on 06/24/18 06:25; Admin Dose 50 MCG; Start 06/19/18 at 07:00 Lorazepam (Ativan) 1 mg Q6H PRN IV ANXIETY; Start 06/18/18 at 20:00 Morphine Sulfate (morphine) 2 mg Q4H PRN IV SEVERE PAIN LEVEL 7-10; Start 06/18/18 at 20:00 Miscellaneous Medication (Bystolic) 5 mg DAILY PO Last administered on 06/24/18at 10:14; Admin Dose 5 MG; Start 06/19/18 at 09:00 Nitroglycerin (Nitroglycerin 2% Oint) 1 inch Q6 PRN TD CHEST PAIN; Start 06/18/18 at 20:00 Ondansetron HCl (Zofran Inj) 4 mg Q6H PRN IV NAUSEA AND/OR VOMITING; Start 06/18/18 at 20:00 Sertraline HCl (Zoloft) 50 mg DAILY PO Last administered on 06/24/18 10:14; Admin Dose 50 MG; Start 06/19/18 at 09:00 Sevelamer Carbonate (Renvela) 0.8 gm WITH MEALS PO Last administered on 06/24at 12:16; Admin Dose 0.8 GM; Start 06/19/18 at 07:35 Petrolatum (Vaseline) 1 applic NOTE PRN TOP NOTE; Start 06/18/18 at 20:30 Vitamin B Complex/ Vitamin C (Berocca) 1 cap DAILY PO Last administered on 06/24/18 10:13; Admin Dose 1 CAP; Start 06/19/18 at 09:00 Miscellaneous Information 1 ea NOTE XX ; Start 06/18/18 at 21:30 Glucose (Glutose) 15 gm Q15M PRN PO DECREASED GLUCOSE; Start 06/18/18 at 21:30 Glucose (Glutose) 22.5 gm Q15M PRN PO DECREASED GLUCOSE; Start 06/18/18 at 21:30 Dextrose (D50w Syringe) 25 ml Q15M PRN IV DECREASED GLUCOSE; Start 06/18/18 at 21:30 Dextrose (D50w Syringe) 50 ml Q15M PRN IV DECREASED GLUCOSE; Start 06/18/18 at 21:30 Glucagon (Glucagen) 1 mg Q15M PRN IM DECREASED GLUCOSE; Start 06/18/18 at 21:30 Glucose (Glutose) 15 gm Q15M PRN BUCCAL DECREASED GLUCOSE; Start 06/18/18 at 21:30 Epoetin Festus (Epogen (Esrd)) 10,000 units MoWeFr@17 SC Last administered on 06/23/18at 18:43; Admin Dose 10,000 UNITS; Start 06/20/18 at 17:00 Memantine (Namenda) 5 mg DAILY PO Last administered on 06/24/18 10:14; Admin Dose 5 MG; Start 06/20/18 at 09:00 Ascorbic Acid (Vitamin C) 500 mg DAILY PO Last administered on 06/24/18 10:14; Admin Dose 500 MG; Start 06/20/18 at 09:00 Zinc Sulfate (Zinc Sulfate) 220 mg DAILY PO Last administered on 06/24/18 10:15; Admin Dose 220 MG; Start 06/20/18 at 09:00 Multivitamins Therapeutic (Theragran) 1 tab DAILY PO Last administered on 06/24/18 09:00; Admin Dose 1 TAB; Start 06/20/18 at 09:00 Patient Own Medication 1 ea MONWEDFRI PRN XX Before dialysis Last administered on 06/20/18 15:14; Admin Dose 1 EA; Start 06/20/18 at 14:30 Miconazole (Monistat-7) 2 supp HS VAG Last administered on 06/23/18at 22:05; Admin Dose 2 SUPP; Start 06/22/18 at 22:15; Stop 06/24/18 at 21:01 Petrolatum (Vaseline) 1 applic BID TOP Last administered on 06/24/18 09:00; Admin Dose 1 APPLIC; Start 06/22/18 at 22:16 Al Hydrox/Mg Hydrox/Simethicone (Mag-Al Plus) 30 ml Q4H PRN PO GASTROINTESTINAL UPSET; Start 06/23/18 at 20:30 Famotidine (Pepcid) 20 mg HS PRN PO GASTROINTESTINAL UPSET Last administered on 06/24/18 10:15; Admin Dose 20 MG; Start 06/23/18 at 22:00 Lorazepam (Ativan) 1 mg Q6H PRN PO ANXIETY; Start 06/24/18 at 11:30 Allergies: Coded Allergies: amoxicillin (Unverified Allergy, Unknown, 06/13/18) clavulanic acid (Unverified Allergy, Unknown, 06/13/18) clindamycin (Verified Allergy, Unknown, 05/29/18) Uncoded Allergies: AMOXICILLIN TRIHYDRATE (Allergy, Unknown, 05/29/18) POTASSIUM CLAVULANATE (Allergy, Unknown, 05/29/18) Social History Smoking Status: Never smoker Exam/Review of Systems Vital Signs Vitals Vital Signs Date Temp Pulse Resp B/P (MAP) Pulse Ox O2 O2 Flow FiO2 Time Delivery Rate 06/24/18 90 18 95 21 09:03 06/24/18 98.5 143/65 Room Air 07:00 (91) Intake and Output 06/23/18 06/23/18 06/24/18 1515:00 23:00 07:00 IntakeIntake Total 640 ml BalanceBalance 640 ml Exam Exam General: no acute distress HEENT: NC/AT. pupils are equal. round. NECK: no stridor. CV: RRR. systolic murmur; no gallop or rubs. PULM: no wheezing or rhonchi. GI: SOFT, NT, ND, no rebound or guarding Extremity: trace B/L LE edema. no clubbing. neuro: awake and alert, OX3. Psych: calm and pleasant rectal: deferred EKG done 05/26/2018 which was personally reviewed sinus tachycardia there was no evidence of ischemia Echo cardiogram done 05/27/2018 which was personally reviewed shows: Normal left ventricular systolic function. Normal left ventricular cavity size. Sigmoid septum. Ejection fraction is visually estimated at 60 %. Tissue Doppler/Mitral Doppler indices are consistent with pseudonormalization with mildly elevated left atrial pressure (Stage II diastolic dysfunction). Mild mitral leaflet calcification. Mild mitral annular calcification. Trace mitral regurgitation. No significant aortic stenosis or insufficiency. Aortic cusps appear mildly calcified. Normal appearance of the tricuspid valve. Estimated peak PA systolic pressure 45 mmHg. There is mild tricuspid regurgitation. Labs Result Diagram: 06/24/18 0619 06/24/18 06 Results 24hrs Laboratory Tests Test 06/23/18 17:00 06/23/18 18:56 06/23/18 21:00 06/23/18 21:09 Bedside Glucose 184 135 155 Urine Color CHER Urine Clarity CLOUDY A Urine pH 7.0 Urine Specific 1.014 [place] Urine Ketones NEGATIVE Urine Nitrite NEGATIVE Urine Bilirubin NEGATIVE Urine Urobilinogen NEGATIVE Urine Leukocyte TRACE A Esterase Urine Microscopic > 182 H RBC Urine Microscopic 13 H WBC Urine Squamous MODERATE Epithelial Cells Urine Bacteria FEW A Urine Hemoglobin 1+ H Urine Glucose 1+ H Urine Total Protein 3+ H Test 06/24/18 06:19 06/24/18 07:52 06/24/18 12:15 White Blood Count 3.9 L Red Blood Count 2.93 L Hemoglobin 7.9 L Hematocrit 25.2 L Mean Corpuscular 86.0 Volume Mean Corpuscular 27.0 L Hemoglobin Mean Corpuscular 31.3 L Hemoglobin Concent Red Cell 15.5 H Distribution Width Platelet Count 221 Mean Platelet Volume 10.1 Immature 0.000 L Granulocytes % Neutrophils % 58.2 Lymphocytes % 30.1 Monocytes % 9.1 Eosinophils % 2.1 Basophils % 0.5 Nucleated Red Blood 0.0 Cells % Immature 0.000 Granulocytes # Neutrophils # 2.2 Lymphocytes # 1.2 Monocytes # 0.4 Eosinophils # 0.1 Basophils # 0.0 Nucleated Red Blood 0.0 Cells # Sodium Level 132 L Potassium Level 4.0 Chloride Level 92 L Carbon Dioxide Level 28 Anion Gap 12 Blood Urea Nitrogen 46 H Creatinine 3.24 H Est Glomerular Filtrat Rate mL/min Glucose Level 122 Calcium Level 8.9 Phosphorus Level 3.8 Magnesium Level 1.8 Bedside Glucose 133 195 Medications Medications Current Medications Docusate Sodium (Colace) 100 mg BID PO Last administered on 06/24/18at 10:07; Admin Dose 100 MG; Start 06/18/18 at 21:00 Senna (Senokot) 1 tab HS PO Last administered on 06/23/18at 21:14; Admin Dose 1 TAB; Start 06/18/18 at 21:00 Lactulose (Enulose) 20 gm DAILY PRN PO CONSTIPATION; Start 06/18/18 at 19:00 Bisacodyl (Dulcolax Supp) 10 mg DAILY PRN RI CONSTIPATION; Start 06/18/18 at 19:00 Acetaminophen (Tylenol Tab) 650 mg Q4H PRN PO MILD PAIN 1-3 Last administered on 06/23/18 20:04; Admin Dose 650 MG; Start 06/18/18 at 19:00 Miscellaneous Information (Pending [facility]yl Order For Wound Care) This patient mcclain... PRN PRN XX WOUND CARE; Start 06/18/18 at 19:00 Hydralazine HCl (Apresoline) 100 mg Q8 PO Last administered on 06/24/18 06:25; Admin Dose 100 MG; Start 06/18/18 at 20:00 Insulin Aspart (Novolog Insulin Pen) NOVOLOG *MILD* ALGORITHM WITH MEALS BEDTIME SC Last administered on 06/24/18 12:28; Admin Dose 2 UNIT; Start 06/18/18 at 21:00 Lactobacillus Acidophilus/ Rhamnosus (Culturelle) 1 cap BID PO Last administered on 06/24/18 10:15; Admin Dose 1 CAP; Start 06/18/18 at 21:00 Nystatin (Nystatin Powder) 1 applic BID TOP Last administered on 06/24/18 12:17; Admin Dose 1 APPLIC; Start 06/18/18 at 21:00 Nystatin (Nystatin Powder) 1 applic NOTE PRN TOP NOTE; Start 06/18/18 at 20:00 Albuterol/ Ipratropium (Duoneb) 3 ml Q6H RESP THERAPY HHN Last administered on 06/24/18 13:55; Admin Dose 3 ML; Start 06/18/18 at 21:00 Albuterol/ Ipratropium (Duoneb) 3 ml Q6H RESP THERAPY PRN HHN SHORTNESS OF BREATH; Start 06/18/18 at 20:00 Amlodipine Besylate (Norvasc) 5 mg DAILY PO Last administered on 06/24/18 10:15; Admin Dose 5 MG; Start 06/19/18 at 09:00 Calcium Acetate (Phoslo) 667 mg WITH MEALS PO Last administered on 06/24/18 12:17; Admin Dose 667 MG; Start 06/19/18 at 07:35 Clonidine (Catapres) 0.1 mg Q6H PRN PO SBP ABOVE 170; Start 06/18/18 at 20:00 Collagenase (Santyl) 1 applic Q12 TOP Last administered on 06/24/18 12:18; Admin Dose 1 APPLIC; Start 06/18/18 at 21:00 Collagenase (Santyl) 1 applic NOTE PRN TOP NOTE Last administered on 06/18/18at 21:44; Admin Dose 1 APPLIC; Start 06/18/18 at 20:00 Desmopressin Acetate (Ddavp Nasal) 4 spray BID NASAL ; Start 06/18/18 at 22:00 Diphenhydramine HCl (Benadryl) 25 mg Q4H PRN IV ITCHING; Start 06/18/18 at 20:00 Folic Acid (Folic Acid) 1 mg DAILY PO Last administered on 06/24/18 10:14; Admin Dose 1 MG; Start 06/19/18 at 09:00 Guaifenesin (Robitussin Liquid Cup) 100 mg Q6 PRN PO COUGH; Start 06/18/18 at 20:00 Lansoprazole (Prevacid) 30 mg DAILY@06 PO Last administered on 06/24/18 06:25; Admin Dose 30 MG; Start 06/19/18 at 06:00 Levothyroxine Sodium (Synthroid) 50 mcg BEFORE BREAKFAST PO Last administered on 06/24/18 06:25; Admin Dose 50 MCG; Start 06/19/18 at 07:00 Lorazepam (Ativan) 1 mg Q6H PRN IV ANXIETY; Start 06/18/18 at 20:00 Morphine Sulfate (morphine) 2 mg Q4H PRN IV SEVERE PAIN LEVEL 7-10; Start 06/18/18 at 20:00 Miscellaneous Medication (Bystolic) 5 mg DAILY PO Last administered on 06/24/18 10:14; Admin Dose 5 MG; Start 06/19/18 at 09:00 Nitroglycerin (Nitroglycerin 2% Oint) 1 inch Q6 PRN TD CHEST PAIN; Start 06/18/18 at 20:00 Ondansetron HCl (Zofran Inj) 4 mg Q6H PRN IV NAUSEA AND/OR VOMITING; Start 06/18/18 at 20:00 Sertraline HCl (Zoloft) 50 mg DAILY PO Last administered on 06/24/18 10:14; Admin Dose 50 MG; Start 06/19/18 at 09:00 Sevelamer Carbonate (Renvela) 0.8 gm WITH MEALS PO Last administered on 12:16; Admin Dose 0.8 GM; Start 06/19/18 at 07:35 Petrolatum (Vaseline) 1 applic NOTE PRN TOP NOTE; Start 06/18/18 at 20:30 Vitamin B Complex/ Vitamin C (Berocca) 1 cap DAILY PO Last administered on 06/24/18 10:13; Admin Dose 1 CAP; Start 06/19/18 at 09:00 Miscellaneous Information 1 ea NOTE XX ; Start 06/18/18 at 21:30 Glucose (Glutose) 15 gm Q15M PRN PO DECREASED GLUCOSE; Start 06/18/18 at 21:30 Glucose (Glutose) 22.5 gm Q15M PRN PO DECREASED GLUCOSE; Start 06/18/18 at 21:30 Dextrose (D50w Syringe) 25 ml Q15M PRN IV DECREASED GLUCOSE; Start 06/18/18 at 21:30 Dextrose (D50w Syringe) 50 ml Q15M PRN IV DECREASED GLUCOSE; Start 06/18/18 at 21:30 Glucagon (Glucagen) 1 mg Q15M PRN IM DECREASED GLUCOSE; Start 06/18/18 at 21:30 Glucose (Glutose) 15 gm Q15M PRN BUCCAL DECREASED GLUCOSE; Start 06/18/18 at 21:30 Epoetin Festus (Epogen (Esrd)) 10,000 units MoWeFr@17 SC Last administered on 06/23/18at 18:43; Admin Dose 10,000 UNITS; Start 06/20/18 at 17:00 Memantine (Namenda) 5 mg DAILY PO Last administered on 06/24/18 10:14; Admin Dose 5 MG; Start 06/20/18 at 09:00 Ascorbic Acid (Vitamin C) 500 mg DAILY PO Last administered on 06/24/18 10:14; Admin Dose 500 MG; Start 06/20/18 at 09:00 Zinc Sulfate (Zinc Sulfate) 220 mg DAILY PO Last administered on 06/24/18 10:15; Admin Dose 220 MG; Start 06/20/18 at 09:00 Multivitamins Therapeutic (Theragran) 1 tab DAILY PO Last administered on 06/24/18at 09:00; Admin Dose 1 TAB; Start 06/20/18 at 09:00 Patient Own Medication 1 ea MONWEDFRI PRN XX Before dialysis Last administered on 06/20/18at 15:14; Admin Dose 1 EA; Start 06/20/18 at 14:30 Miconazole (Monistat-7) 2 supp HS VAG Last administered on 06/23/18at 22:05; Admin Dose 2 SUPP; Start 06/22/18 at 22:15; Stop 06/24/18 at 21:01 Petrolatum (Vaseline) 1 applic BID TOP Last administered on 06/24/18at 09:00; Admin Dose 1 APPLIC; Start 06/22/18 at 22:16 Al Hydrox/Mg Hydrox/Simethicone (Mag-Al Plus) 30 ml Q4H PRN PO GASTROINTESTINAL UPSET; Start 06/23/18 at 20:30 Famotidine (Pepcid) 20 mg HS PRN PO GASTROINTESTINAL UPSET Last administered on 06/24/18at 10:15; Admin Dose 20 MG; Start 06/23/18 at 22:00 Lorazepam (Ativan) 1 mg Q6H PRN PO ANXIETY; Start 06/24/18 at 11:30 PRIETO CALERO MD Jun 24, 2018 14:03
--- NOTE | 2018-06-24 15:06 | CONS ---
Assessment/Plan Assessment/Plan Hospital Course (Demo Recall) No acute changes overnight patient is alert, feels good, looks comfortable Indwelling's left upper extremity AV graft Physical examination: This is a fragile well-developed elderly woman who is alert in no distress. Head atraumatic normocephalic sclera nonicteric. Neck is supple. Chest rise symmetrical breath sounds clear. Heart S1-S2 abdomen soft bowel sounds present. Extremities without cyanosis Patient has dependent edema of her feet Assessment: 1. Status post UTI with urine culture grew pedoicoccus 2. Status post pneumonia with respiratory failure 3. CHF 4. Diabetes 5. End-stage renal disease, hemodialysis dependent 6. Dementia Plan: Stable off antibiotics Discussed with daughter Consultation Date/Type/Reason Admit Date/Time Jun 18, 2018 at 18:06 Initial Consult Date Type of Consult id Date/Time of Note DATE: 06/24/18 TIME: 15:05 Exam/Review of Systems Exam Vitals Vital Signs Date Temp Pulse Resp B/P (MAP) Pulse Ox O2 O2 Flow FiO2 Time Delivery Rate 06/24/18 89 18 96 21 13:55 06/24/18 98.5 143/65 Room Air 07:00 (91) Intake and Output 06/23/18 06/23/18 06/24/18 1515:00 23:00 07:00 IntakeIntake Total 640 ml BalanceBalance 640 ml Results Result Diagram: 06/24/1861806/24/18 06 Results 24hrs Laboratory Tests Test 06/23/18 17:00 06/23/18 18:56 06/23/18 21:00 06/23/18 21:09 Bedside Glucose 184 135 155 Urine Color CHER Urine Clarity CLOUDY A Urine pH 7.0 Urine Specific 1.014 [place] Urine Ketones NEGATIVE Urine Nitrite NEGATIVE Urine Bilirubin NEGATIVE Urine Urobilinogen NEGATIVE Urine Leukocyte TRACE A Esterase Urine Microscopic > 182 H RBC Urine Microscopic 13 H WBC Urine Squamous MODERATE Epithelial Cells Urine Bacteria FEW A Urine Hemoglobin 1+ H Urine Glucose 1+ H Urine Total Protein 3+ H Test 06/24/18 06:19 06/24/18 07:52 06/24/18 12:15 White Blood Count 3.9 L Red Blood Count 2.93 L Hemoglobin 7.9 L Hematocrit 25.2 L Mean Corpuscular 86.0 Volume Mean Corpuscular 27.0 L Hemoglobin Mean Corpuscular 31.3 L Hemoglobin Concent Red Cell 15.5 H Distribution Width Platelet Count 221 Mean Platelet Volume 10.1 Immature 0.000 L Granulocytes % Neutrophils % 58.2 Lymphocytes % 30.1 Monocytes % 9.1 Eosinophils % 2.1 Basophils % 0.5 Nucleated Red Blood 0.0 Cells % Immature 0.000 Granulocytes # Neutrophils # 2.2 Lymphocytes # 1.2 Monocytes # 0.4 Eosinophils # 0.1 Basophils # 0.0 Nucleated Red Blood 0.0 Cells # Sodium Level 132 L Potassium Level 4.0 Chloride Level 92 L Carbon Dioxide Level 28 Anion Gap 12 Blood Urea Nitrogen 46 H Creatinine 3.24 H Est Glomerular Filtrat Rate mL/min Glucose Level 122 Calcium Level 8.9 Phosphorus Level 3.8 Magnesium Level 1.8 Thyroid Stimulating 1.470 Hormone (TSH) Bedside Glucose 133 195 Medications Medication Current Medications Docusate Sodium (Colace) 100 mg BID PO Last administered on 06/24/18 10:07; Admin Dose 100 MG; Start 06/18/18 at 21:00 Senna (Senokot) 1 tab HS PO Last administered on 06/23/18at 21:14; Admin Dose 1 TAB; Start 06/18/18 at 21:00 Lactulose (Enulose) 20 gm DAILY PRN PO CONSTIPATION; Start 06/18/18 at 19:00 Bisacodyl (Dulcolax Supp) 10 mg DAILY PRN [place] CONSTIPATION; Start 06/18/18 at 19:00 Acetaminophen (Tylenol Tab) 650 mg Q4H PRN PO MILD PAIN 1-3 Last administered on 06/23/18 20:04; Admin Dose 650 MG; Start 06/18/18 at 19:00 Miscellaneous Information (Pending Santyl Order For Wound Care) This patient mcclain... PRN PRN XX WOUND CARE; Start 06/18/18 at 19:00 Hydralazine HCl (Apresoline) 100 mg Q8 PO Last administered on 06/24/18 06:25; Admin Dose 100 MG; Start 06/18/18 at 20:00 Insulin Aspart (Novolog Insulin Pen) NOVOLOG *MILD* ALGORITHM WITH MEALS BEDTIME SC Last administered on 06/24/18 12:28; Admin Dose 2 UNIT; Start 06/18/18 at 21:00 Lactobacillus Acidophilus/ Rhamnosus (Culturelle) 1 cap BID PO Last administered on 06/24/18 10:15; Admin Dose 1 CAP; Start 06/18/18 at 21:00 Nystatin (Nystatin Powder) 1 applic BID TOP Last administered on 06/24/18 12:17; Admin Dose 1 APPLIC; Start 06/18/18 at 21:00 Nystatin (Nystatin Powder) 1 applic NOTE PRN TOP NOTE; Start 06/18/18 at 20:00 Albuterol/ Ipratropium (Duoneb) 3 ml Q6H RESP THERAPY HHN Last administered on 06/24/18 13:55; Admin Dose 3 ML; Start 06/18/18 at 21:00 Albuterol/ Ipratropium (Duoneb) 3 ml Q6H RESP THERAPY PRN HHN SHORTNESS OF BREATH; Start 06/18/18 at 20:00 Amlodipine Besylate (Norvasc) 5 mg DAILY PO Last administered on 06/24/18 10:15; Admin Dose 5 MG; Start 06/19/18 at 09:00 Calcium Acetate (Phoslo) 667 mg WITH MEALS PO Last administered on 06/24/18 12:17; Admin Dose 667 MG; Start 06/19/18 at 07:35 Clonidine (Catapres) 0.1 mg Q6H PRN PO SBP ABOVE 170; Start 06/18/18 at 20:00 Collagenase (Santyl) 1 applic Q12 TOP Last administered on 06/24/18 12:18; Admin Dose 1 APPLIC; Start 06/18/18 at 21:00 Collagenase (Santyl) 1 applic NOTE PRN TOP NOTE Last administered on 06/18/18at 21:44; Admin Dose 1 APPLIC; Start 06/18/18 at 20:00 Desmopressin Acetate (Ddavp Nasal) 4 spray BID NASAL ; Start 06/18/18 at 22:00 Diphenhydramine HCl (Benadryl) 25 mg Q4H PRN IV ITCHING; Start 06/18/18 at 20:00 Folic Acid (Folic Acid) 1 mg DAILY PO Last administered on 06/24/18 10:14; Admin Dose 1 MG; Start 06/19/18 at 09:00 Guaifenesin (Robitussin Liquid Cup) 100 mg Q6 PRN PO COUGH; Start 06/18/18 at 20:00 Lansoprazole (Prevacid) 30 mg DAILY@06 PO Last administered on 06/24/18at 06:25; Admin Dose 30 MG; Start 06/19/18 at 06:00 Levothyroxine Sodium (Synthroid) 50 mcg BEFORE BREAKFAST PO Last administered on 06/24/18 06:25; Admin Dose 50 MCG; Start 06/19/18 at 07:00 Lorazepam (Ativan) 1 mg Q6H PRN IV ANXIETY; Start 06/18/18 at 20:00 Morphine Sulfate (morphine) 2 mg Q4H PRN IV SEVERE PAIN LEVEL 7-10; Start 06/18/18 at 20:00 Miscellaneous Medication (Bystolic) 5 mg DAILY PO Last administered on 06/19/18at 08:56; Admin Dose 5 MG; Start 06/19/18 at 09:00 Nitroglycerin (Nitroglycerin 2% Oint) 1 inch Q6 PRN TD CHEST PAIN; Start 06/18/18 at 20:00 Ondansetron HCl (Zofran Inj) 4 mg Q6H PRN IV NAUSEA AND/OR VOMITING; Start 06/18/18 at 20:00 Sertraline HCl (Zoloft) 50 mg DAILY PO Last administered on 06/24/18at 10:14; Admin Dose 50 MG; Start 06/19/18 at 09:00 Sevelamer Carbonate (Renvela) 0.8 gm WITH MEALS PO Last administered on 06/24/18at 12:16; Admin Dose 0.8 GM; Start 06/19/18 at 07:35 Petrolatum (Vaseline) 1 applic NOTE PRN TOP NOTE; Start 06/18/18 at 20:30 Vitamin B Complex/ Vitamin C (Berocca) 1 cap DAILY PO Last administered on 06/24/18at 10:13; Admin Dose 1 CAP; Start 06/19/18 at 09:00 Miscellaneous Information 1 ea NOTE XX ; Start 06/18/18 at 21:30 Glucose (Glutose) 15 gm Q15M PRN PO DECREASED GLUCOSE; Start 06/18/18 at 21:30 Glucose (Glutose) 22.5 gm Q15M PRN PO DECREASED GLUCOSE; Start 06/18/18 at 21:30 Dextrose (D50w Syringe) 25 ml Q15M PRN IV DECREASED GLUCOSE; Start 06/18/18 at 21:30 Dextrose (D50w Syringe) 50 ml Q15M PRN IV DECREASED GLUCOSE; Start 06/18/18 at 21:30 Glucagon (Glucagen) 1 mg Q15M PRN IM DECREASED GLUCOSE; Start 06/18/18 at 21:30 Glucose (Glutose) 15 gm Q15M PRN BUCCAL DECREASED GLUCOSE; Start 06/18/18 at 21:30 Epoetin Festus (Epogen (Esrd)) 10,000 units MoWeFr@17 SC Last administered on 06/23/18at 18:43; Admin Dose 10,000 UNITS; Start 06/20/18 at 17:00 Memantine (Namenda) 5 mg DAILY PO Last administered on 06/24/18 10:14; Admin Dose 5 MG; Start 06/20/18 at 09:00 Ascorbic Acid (Vitamin C) 500 mg DAILY PO Last administered on 06/24/18 10:14; Admin Dose 500 MG; Start 06/20/18 at 09:00 Zinc Sulfate (Zinc Sulfate) 220 mg DAILY PO Last administered on 06/24/18 10:15; Admin Dose 220 MG; Start 06/20/18 at 09:00 Multivitamins Therapeutic (Theragran) 1 tab DAILY PO Last administered on 09:00; Admin Dose 1 TAB; Start 06/20/18 at 09:00 Patient Own Medication 1 ea MONWEDFRI PRN XX Before dialysis Last administered on 06/20/18 15:14; Admin Dose 1 EA; Start 06/20/18 at 14:30 Miconazole (Monistat-7) 2 supp HS VAG Last administered on 06/23/18at 22:05; Admin Dose 2 SUPP; Start 06/22/18 at 22:15; Stop 06/24/18 at 21:01 Petrolatum (Vaseline) 1 applic BID TOP Last administered on 06/24/18 09:00; Admin Dose 1 APPLIC; Start 06/22/18 at 22:16 Al Hydrox/Mg Hydrox/Simethicone (Mag-Al Plus) 30 ml Q4H PRN PO GASTROINTESTINAL UPSET; Start 06/23/18 at 20:30 Famotidine (Pepcid) 20 mg HS PRN PO GASTROINTESTINAL UPSET Last administered on 06/24/18at 10:15; Admin Dose 20 MG; Start 06/23/18 at 22:00 Lorazepam (Ativan) 1 mg Q6H PRN PO ANXIETY; Start 06/24/18 at 11:30 TANNER DREW NP Jun 24, 2018 15:06
[2018-06-24] MEDS: SENNA TAB PO SCH (21:27)
[2018-06-24] MEDS: MICONAZOLE 100 MG VAG SUPP VAG SCH (21:31)
[2018-06-25] MEDS: ALBUTEROL/IPRATROPIUM (NEB) 3 ML AMP HHN SCH ×4 (02:12→20:45)
[2018-06-25 02:15] VITALS: BP 136/62; PULSE 99; RESP 18
[2018-06-25] MEDS: LANSOPRAZOLE 30 MG CAP PO SCH (06:19)
[2018-06-25] MEDS: LEVOTHYROXINE 50 MCG TAB PO SCH (06:21)
[2018-06-25 07:00] VITALS: BP 135/64; PULSE 96; RESP 18
[2018-06-25] MEDS: CALCIUM ACETATE 667 MG CAP PO SCH ×3 (07:35→18:02)
[2018-06-25] MEDS: SEVELAMER CARBONATE 0.8 GM PKT PO SCH ×3 (07:35→18:03)
[2018-06-25] MEDS: INSULIN ASPART [NOVOLOG] 3 ML PEN SC SCH ×4 (07:35→20:24)
[2018-06-25] MEDS: DESMOPRESSIN 0.01% 5 ML NASAL NASAL SCH ×2 (09:00→20:32)
--- NOTE | 2018-06-25 09:22 | CONS ---
Consult Date/Type/Reason Admit Date/Time Jun 18, 2018 at 18:06 Initial Consult Date 06/24/18 Type of Consultation: cv Date/Time of Note DATE: 06/25/18 TIME: 09:21 Subjective cardiology follow-up progress note Subjective: Discussed with the staff discussed with Dr. Mike Patient with no chest pain or pressure no shoulder pain no palpitation. Is feeling better today breathing is improved as well. She continues to cooperate with physical therapy Objective: General: no acute distress HEENT: NC/AT. pupils are equal. round. NECK: no stridor. CV: RRR. systolic murmur; no gallop or rubs. PULM: no wheezing or rhonchi. GI: SOFT, NT, ND, no rebound or guarding Extremity: trace B/L LE edema. no clubbing. neuro: awake and alert, OX3. Psych: calm and pleasant rectal: deferred EKG done 05/26/2018 which was personally reviewed sinus tachycardia there was no evidence of ischemia Echo cardiogram done 05/27/2018 which was personally reviewed shows: Normal left ventricular systolic function. Normal left ventricular cavity size. Sigmoid septum. Ejection fraction is visually estimated at 60 %. Tissue Doppler/Mitral Doppler indices are consistent with pseudonormalization with mildly elevated left atrial pressure (Stage II diastolic dysfunction). Mild mitral leaflet calcification. Mild mitral annular calcification. Trace mitral regurgitation. No significant aortic stenosis or insufficiency. Aortic cusps appear mildly calcified. Normal appearance of the tricuspid valve. Estimated peak PA systolic pressure 45 mmHg. There is mild tricuspid regurgitation. Objective Vitals Vital Signs Date Temp Pulse Resp B/P (MAP) Pulse Ox O2 O2 Flow FiO2 Time Delivery Rate 06/25/18 94 18 93 21 07:50 06/25/18 98.5 135/64 Room Air 07:00 (87) Intake and Output 06/24/18 06/24/18 06/25/18 1515:00 23:00 07:00 IntakeIntake Total 1200 ml 200 ml OutputOutput Total 2800 ml BalanceBalance -1600 ml 200 ml Results/Medications Result Diagram: 06/24/1861806/24/18618 Results 24 hrs Laboratory Tests Test 06/24/18 12:15 06/24/18 21:24 06/24/18 22:01 06/25/18 01:57 Bedside Glucose 195 204 211 133 Test 06/25/18 07:52 Bedside Glucose 129 Medications Current Medications Docusate Sodium (Colace) 100 mg BID PO Last administered on 06/24/18at 21:27; Admin Dose 100 MG; Start 06/18/18 at 21:00 Senna (Senokot) 1 tab HS PO Last administered on 06/24/18 21:27; Admin Dose 1 TAB; Start 06/18/18 at 21:00 Lactulose (Enulose) 20 gm DAILY PRN PO CONSTIPATION; Start 06/18/18 at 19:00 Bisacodyl (Dulcolax Supp) 10 mg DAILY PRN [place] CONSTIPATION; Start 06/18/18 at 19:00 Acetaminophen (Tylenol Tab) 650 mg Q4H PRN PO MILD PAIN 1-3 Last administered on 06/23/18at 20:04; Admin Dose 650 MG; Start 06/18/18 at 19:00 Miscellaneous Information (Pending [facility] Order For Wound Care) This patient mcclain... PRN PRN XX WOUND CARE; Start 06/18/18 at 19:00 Hydralazine HCl (Apresoline) 100 mg Q8 PO Last administered on 06/25/18 06:19; Admin Dose 100 MG; Start 06/18/18 at 20:00 Insulin Aspart (Novolog Insulin Pen) NOVOLOG *MILD* ALGORITHM WITH MEALS B EDTIME SC Last administered on 06/24/18at 22:05; Admin Dose 1 UNIT; Start 06/18/18 at 21:00 Lactobacillus Acidophilus/ Rhamnosus (Culturelle) 1 cap BID PO Last administered on 06/24/18at 21:26; Admin Dose 1 CAP; Start 06/18/18 at 21:00 Nystatin (Nystatin Powder) 1 applic BID TOP Last administered on 06/24/18at 21:30; Admin Dose 1 APPLIC; Start 06/18/18 at 21:00 Nystatin (Nystatin Powder) 1 applic NOTE PRN TOP NOTE; Start 06/18/18 at 20:00 Albuterol/ Ipratropium (Duoneb) 3 ml Q6H RESP THERAPY HHN Last administered on 06/25/18at 07:50; Admin Dose 3 ML; Start 06/18/18 at 21:00 Albuterol/ Ipratropium (Duoneb) 3 ml Q6H RESP THERAPY PRN HHN SHORTNESS OF BREATH; Start 06/18/18 at 20:00 Amlodipine Besylate (Norvasc) 5 mg DAILY PO Last administered on 06/24/18 10:15; Admin Dose 5 MG; Start 06/19/18 at 09:00 Calcium Acetate (Phoslo) 667 mg WITH MEALS PO Last administered on 06/24/18 19:21; Admin Dose 667 MG; Start 06/19/18 at 07:35 Clonidine (Catapres) 0.1 mg Q6H PRN PO SBP ABOVE 170; Start 06/18/18 at 20:00 Collagenase (Santyl) 1 applic Q12 TOP Last administered on 06/24/18 21:30; Admin Dose 1 APPLIC; Start 06/18/18 at 21:00 Collagenase (Santyl) 1 applic NOTE PRN TOP NOTE Last administered on 06/18/18 21:44; Admin Dose 1 APPLIC; Start 06/18/18 at 20:00 Desmopressin Acetate (Ddavp Nasal) 4 spray BID NASAL ; Start 06/18/18 at 22:00 Diphenhydramine HCl (Benadryl) 25 mg Q4H PRN IV ITCHING; Start 06/18/18 at 20:00 Folic Acid (Folic Acid) 1 mg DAILY PO Last administered on 06/24/18 10:14; Admin Dose 1 MG; Start 06/19/18 at 09:00 Guaifenesin (Robitussin Liquid Cup) 100 mg Q6 PRN PO COUGH; Start 06/18/18 at 20:00 Lansoprazole (Prevacid) 30 mg DAILY@06 PO Last administered on 06/25/18 06:19; Admin Dose 30 MG; Start 06/19/18 at 06:00 Levothyroxine Sodium (Synthroid) 50 mcg BEFORE BREAKFAST PO Last administered on 06/25/18 06:21; Admin Dose 50 MCG; Start 06/19/18 at 07:00 Lorazepam (Ativan) 1 mg Q6H PRN IV ANXIETY; Start 06/18/18 at 20:00 Morphine Sulfate (morphine) 2 mg Q4H PRN IV SEVERE PAIN LEVEL 7-10; Start 06/18/18 at 20:00 Miscellaneous Medication (Bystolic) 5 mg DAILY PO Last administered on 06/19/18 08:56; Admin Dose 5 MG; Start 06/19/18 at 09:00 Nitroglycerin (Nitroglycerin 2% Oint) 1 inch Q6 PRN TD CHEST PAIN; Start 06/18/18 at 20:00 Ondansetron HCl (Zofran Inj) 4 mg Q6H PRN IV NAUSEA AND/OR VOMITING; Start 06/18/18 at 20:00 Sertraline HCl (Zoloft) 50 mg DAILY PO Last administered on 06/24/18at 10:14; Admin Dose 50 MG; Start 06/19/18 at 09:00 Sevelamer Carbonate (Renvela) 0.8 gm WITH MEALS PO Last administered on 06/24/18 17:35; Admin Dose 0.8 GM; Start 06/19/18 at 07:35 Petrolatum (Vaseline) 1 applic NOTE PRN TOP NOTE; Start 06/18/18 at 20:30 Vitamin B Complex/ Vitamin C (Berocca) 1 cap DAILY PO Last administered on 06/24/18 10:13; Admin Dose 1 CAP; Start 06/19/18 at 09:00 Miscellaneous Information 1 ea NOTE XX ; Start 06/18/18 at 21:30 Glucose (Glutose) 15 gm Q15M PRN PO DECREASED GLUCOSE; Start 06/18/18 at 21:30 Glucose (Glutose) 22.5 gm Q15M PRN PO DECREASED GLUCOSE; Start 06/18/18 at 21:30 Dextrose (D50w Syringe) 25 ml Q15M PRN IV DECREASED GLUCOSE; Start 06/18/18 at 21:30 Dextrose (D50w Syringe) 50 ml Q15M PRN IV DECREASED GLUCOSE; Start 06/18/18 at 21:30 Glucagon (Glucagen) 1 mg Q15M PRN IM DECREASED GLUCOSE; Start 06/18/18 at 21:30 Glucose (Glutose) 15 gm Q15M PRN BUCCAL DECREASED GLUCOSE; Start 06/18/18 at 21:30 Epoetin Festus (Epogen (Esrd)) 10,000 units MoWeFr@17 SC Last administered on 06/23/18at 18:43; Admin Dose 10,000 UNITS; Start 06/20/18 at 17:00 Memantine (Namenda) 5 mg DAILY PO Last administered on 06/24/18at 10:14; Admin Dose 5 MG; Start 06/20/18 at 09:00 Ascorbic Acid (Vitamin C) 500 mg DAILY PO Last administered on 06/24/18 10:14; Admin Dose 500 MG; Start 06/20/18 at 09:00 Zinc Sulfate (Zinc Sulfate) 220 mg DAILY PO Last administered on 06/24/18 10:15; Admin Dose 220 MG; Start 06/20/18 at 09:00 Multivitamins Therapeutic (Theragran) 1 tab DAILY PO Last administered on 09:00; Admin Dose 1 TAB; Start 06/20/18 at 09:00 Patient Own Medication 1 ea MONWEDFRI PRN XX Before dialysis Last administered on 06/20/18 15:14; Admin Dose 1 EA; Start 06/20/18 at 14:30 Petrolatum (Vaseline) 1 applic BID TOP Last administered on 06/24/18 21:31; Admin Dose 1 APPLIC; Start 06/22/18 at 22:16 Al Hydrox/Mg Hydrox/Simethicone (Mag-Al Plus) 30 ml Q4H PRN PO GASTROINTESTINAL UPSET; Start 06/23/18 at 20:30 Famotidine (Pepcid) 20 mg HS PRN PO GASTROINTESTINAL UPSET Last administered on 06/24/18 10:15; Admin Dose 20 MG; Start 06/23/18 at 22:00 Lorazepam (Ativan) 1 mg Q6H PRN PO ANXIETY; Start 06/24/18 at 11:30 Assessment/Plan Hospital Course (Demo Recall) 1. Shoulder pain does not appear to be related to coronary artery disease 2. Hypertension: Under control 3. Renal failure on dialysis 4. Dyslipidemia 5. Status post pneumonia. 6. Debility 7. Upper extremity DVT after PIC line placement 8. History of hypothyroidism on thyroid supplement 8. Anemia Recommendations: Continue with risk factor modifications. Hemodialysis as per renal Continue with blood pressure control Continue physical therapy as tolerated Transfusions as needed with hemodialysis Thank you for his referral. We will continue to follow along with you PRIETO CALERO MD [facility] PRIETO CALERO MD Jun 25, 2018 09:22
[2018-06-25] MEDS: LACTOBACILLUS RHAMNOSUS CAP PO SCH ×2 (09:42→20:23)
[2018-06-25] MEDS: MEMANTINE 5 MG TAB PO SCH (09:42)
[2018-06-25] MEDS: DOCUSATE SODIUM 100 MG CAP PO SCH ×2 (09:42→20:23)
--- NOTE | 2018-06-25 09:42 | PN ---
DATE: 06/25/2018 SUBJECTIVE: The patient is stable, continues to complain about pain of her left shoulder. No other events noted. OBJECTIVE: VITAL SIGNS: Blood pressure is 135/64, respiration 18, pulse 96, temperature 98.5. HEENT: Head is normocephalic. NECK: Supple. HEART: Regular rate. LUNGS: Show diminished breath sounds at the base. ABDOMEN: Soft, nontender to palpation without rebound or guarding. EXTREMITIES: Negative for clubbing, cyanosis, no edema. DERMATOLOGIC: No rashes. MUSCULOSKELETAL: Patient has tenderness to palpation over the left shoulder blade. NEUROLOGIC: No focal deficits. MEDICATIONS: The patient's medications have been reviewed. LABORATORY DATA: Has been reviewed. 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 2. Chest pain, etiology is likely musculoskeletal, improved. 3. Left shoulder pain, likely musculoskeletal. An x-ray was obtained to rule out fracture. Follow u p results. 4. End-stage renal disease. The patient had hemodialysis yesterday. Plan for dialysis again tomorr ow. 5. Anemia. Monitor hemoglobin and hematocrit levels. Continue Epogen. 6. Mineral bone disorder. Monitor calcium and phosphorus levels. Continue phos binders. 7. Right upper extremity deep venous thrombosis. Continue to monitor. 8. Acute respiratory failure secondary to pneumonia. The patient has completed an antibiotic course . 9. History of heart failure. Continue medical management. 10. Diabetes. Continue current insulin regimen. 11. Dysphagia. Continue modified diet. 12. Urinary tract infection. The patient has completed antibiotic course. 13. GI and DVT prophylaxis. 14. Dementia. Continue Namenda. Dictated By: ARTHUR HUERTA DO NR/NTS Conf#: [id number] DID#: [id number] CC: FAY LARES DO; KOLBY PEARSON MD;*EndCC*
[2018-06-25] MEDS: SERTRALINE 50 MG TAB PO SCH (09:43)
[2018-06-25] MEDS: MULTIVITAMINS THERAPEUTIC TAB PO SCH (09:43)
[2018-06-25] MEDS: FOLIC ACID 1 MG TAB PO SCH (09:43)
[2018-06-25] MEDS: ASCORBIC ACID 500 MG TAB PO SCH (09:47)
[2018-06-25] MEDS: ZINC SULFATE 220 MG CAP PO SCH (09:47)
[2018-06-25] MEDS: VITAMIN B COMPLEX/VIT C CAP PO SCH (09:47)
[2018-06-25] MEDS: NEBIVOLOL 5 MG TAB PO SCH (09:48)
[2018-06-25] MEDS: AMLODIPINE 5 MG TAB PO SCH (09:50)
--- NOTE | 2018-06-25 11:58 | CONS ---
Assessment/Plan Assessment/Plan Hospital Course (Demo Recall) No acute changes, looks comfortable Indwelling's left upper extremity AV graft Physical examination: This is a fragile well-developed elderly woman who is alert in no distress. Head atraumatic normocephalic sclera nonicteric. Neck is supple. Chest rise symmetrical breath sounds clear. Heart S1-S2 abdomen soft bowel sounds present. Extremities without cyanosis Patient has dependent edema of her feet Assessment: 1. Status post UTI with urine culture grew pedoicoccus 2. Status post pneumonia with respiratory failure 3. CHF 4. Diabetes 5. End-stage renal disease, hemodialysis dependent 6. Dementia Plan: Stable off antibiotics, continue present care, HD per renal Consultation Date/Type/Reason Admit Date/Time Jun 18, 2018 at 18:06 Initial Consult Date Type of Consult id Date/Time of Note DATE: 06/25/18 TIME: 11:57 Exam/Review of Systems Exam Vitals Vital Signs Date Temp Pulse Resp B/P (MAP) Pulse Ox O2 O2 Flow FiO2 Time Delivery Rate 06/25/18 94 18 93 21 07:50 06/25/18 98.5 135/64 Room Air 07:00 (87) Intake and Output 06/24/18 06/24/18 06/25/18 1515:00 23:00 07:00 IntakeIntake Total 1200 ml 200 ml OutputOutput Total 2800 ml BalanceBalance -1600 ml 200 ml Results Result Diagram: 06/24/1861806/24/18618 Results 24hrs Laboratory Tests Test 06/24/18 12:15 06/24/18 21:24 06/24/18 22:01 06/25/18 01:57 Bedside Glucose 195 204 211 133 Test 06/25/18 07:52 Bedside Glucose 129 Medications Medication Current Medications Docusate Sodium (Colace) 100 mg BID PO Last administered on 06/25/18at 09:42; Admin Dose 100 MG; Start 06/18/18 at 21:00 Senna (Senokot) 1 tab HS PO Last administered on 06/24/18at 21:27; Admin Dose 1 TAB; Start 06/18/18 at 21:00 Lactulose (Enulose) 20 gm DAILY PRN PO CONSTIPATION; Start 06/18/18 at 19:00 Bisacodyl (Dulcolax Supp) 10 mg DAILY PRN [place] CONSTIPATION; Start 06/18/18 at 19:00 Acetaminophen (Tylenol Tab) 650 mg Q4H PRN PO MILD PAIN 1-3 Last administered on 06/23/18 20:04; Admin Dose 650 MG; Start 06/18/18 at 19:00 Miscellaneous Information (Pending Santyl Order For Wound Care) This patient mcclain... PRN PRN XX WOUND CARE; Start 06/18/18 at 19:00 Hydralazine HCl (Apresoline) 100 mg Q8 PO Last administered on 06/25/18 06:19; Admin Dose 100 MG; Start 06/18/18 at 20:00 Insulin Aspart (Novolog Insulin Pen) NOVOLOG *MILD* ALGORITHM WITH MEALS BEDTIME SC Last administered on 06/24/18 22:05; Admin Dose 1 UNIT; Start 06/18/18 at 21:00 Lactobacillus Acidophilus/ Rhamnosus (Culturelle) 1 cap BID PO Last administered on 06/25/18 09:42; Admin Dose 1 CAP; Start 06/18/18 at 21:00 Nystatin (Nystatin Powder) 1 applic BID TOP Last administered on 06/24/18 21:30; Admin Dose 1 APPLIC; Start 06/18/18 at 21:00 Nystatin (Nystatin Powder) 1 applic NOTE PRN TOP NOTE; Start 06/18/18 at 20:00 Albuterol/ Ipratropium (Duoneb) 3 ml Q6H RESP THERAPY HHN Last administered on 06/25/18 07:50; Admin Dose 3 ML; Start 06/18/18 at 21:00 Albuterol/ Ipratropium (Duoneb) 3 ml Q6H RESP THERAPY PRN HHN SHORTNESS OF BREATH; Start 06/18/18 at 20:00 Amlodipine Besylate (Norvasc) 5 mg DAILY PO Last administered on 06/25/18 09:50; Admin Dose 5 MG; Start 06/19/18 at 09:00 Calcium Acetate (Phoslo) 667 mg WITH MEALS PO Last administered on 06/25/18 07:35; Admin Dose 667 MG; Start 06/19/18 at 07:35 Clonidine (Catapres) 0.1 mg Q6H PRN PO SBP ABOVE 170; Start 06/18/18 at 20:00 Collagenase (Santyl) 1 applic Q12 TOP Last administered on 06/24/18 21:30; Admin Dose 1 APPLIC; Start 06/18/18 at 21:00 Collagenase (Santyl) 1 applic NOTE PRN TOP NOTE Last administered on 06/18/18 21:44; Admin Dose 1 APPLIC; Start 06/18/18 at 20:00 Desmopressin Acetate (Ddavp Nasal) 4 spray BID NASAL ; Start 06/18/18 at 22:00 Diphenhydramine HCl (Benadryl) 25 mg Q4H PRN IV ITCHING; Start 06/18/18 at 20: 00 Folic Acid (Folic Acid) 1 mg DAILY PO Last administered on 06/25/18 09:43; Admin Dose 1 MG; Start 06/19/18 at 09:00 Guaifenesin (Robitussin Liquid Cup) 100 mg Q6 PRN PO COUGH; Start 06/18/18 at 20:00 Lansoprazole (Prevacid) 30 mg DAILY@06 PO Last administered on 06/25/18 06:19; Admin Dose 30 MG; Start 06/19/18 at 06:00 Levothyroxine Sodium (Synthroid) 50 mcg BEFORE BREAKFAST PO Last administered on 06/25/18 06:21; Admin Dose 50 MCG; Start 06/19/18 at 07:00 Lorazepam (Ativan) 1 mg Q6H PRN IV ANXIETY; Start 06/18/18 at 20:00 Morphine Sulfate (morphine) 2 mg Q4H PRN IV SEVERE PAIN LEVEL 7-10; Start 06/18/18 at 20:00 Miscellaneous Medication (Bystolic) 5 mg DAILY PO Last administered on 06/25/18at 09:48; Admin Dose 5 MG; Start 06/19/18 at 09:00 Nitroglycerin (Nitroglycerin 2% Oint) 1 inch Q6 PRN TD CHEST PAIN; Start 06/18/18 at 20:00 Ondansetron HCl (Zofran Inj) 4 mg Q6H PRN IV NAUSEA AND/OR VOMITING; Start 06/18/18 at 20:00 Sertraline HCl (Zoloft) 50 mg DAILY PO Last administered on 06/25/18 09:43; Admin Dose 50 MG; Start 06/19/18 at 09:00 Sevelamer Carbonate (Renvela) 0.8 gm WITH MEALS PO Last administered on 06/25/18at 07:35; Admin Dose 0.8 GM; Start 06/19/18 at 07:35 Petrolatum (Vaseline) 1 applic NOTE PRN TOP NOTE; Start 06/18/18 at 20:30 Vitamin B Complex/ Vitamin C (Berocca) 1 cap DAILY PO Last administered on 06/25/18 09:47; Admin Dose 1 CAP; Start 06/19/18 at 09:00 Miscellaneous Information 1 ea NOTE XX ; Start 06/18/18 at 21:30 Glucose (Glutose) 15 gm Q15M PRN PO DECREASED GLUCOSE; Start 06/18/18 at 21:30 Glucose (Glutose) 22.5 gm Q15M PRN PO DECREASED GLUCOSE; Start 06/18/18 at 21:30 Dextrose (D50w Syringe) 25 ml Q15M PRN IV DECREASED GLUCOSE; Start 06/18/18 at 21:30 Dextrose (D50w Syringe) 50 ml Q15M PRN IV DECREASED GLUCOSE; Start 06/18/18 at 21:30 Glucagon (Glucagen) 1 mg Q15M PRN IM DECREASED GLUCOSE; Start 06/18/18 at 21:30 Glucose (Glutose) 15 gm Q15M PRN BUCCAL DECREASED GLUCOSE; Start 06/18/18 at 21:30 Epoetin Festus (Epogen (Esrd)) 10,000 units MoWeFr@17 SC Last administered on 06/23/18at 18:43; Admin Dose 10,000 UNITS; Start 06/20/18 at 17:00 Memantine (Namenda) 5 mg DAILY PO Last administered on 06/25/18at 09:42; Admin Dose 5 MG; Start 06/20/18 at 09:00 Ascorbic Acid (Vitamin C) 500 mg DAILY PO Last administered on 06/25/18 09:47; Admin Dose 500 MG; Start 06/20/18 at 09:00 Zinc Sulfate (Zinc Sulfate) 220 mg DAILY PO Last administered on 06/25/18 09:47; Admin Dose 220 MG; Start 06/20/18 at 09:00 Multivitamins Therapeutic (Theragran) 1 tab DAILY PO Last administered on 06/25/18 09:43; Admin Dose 1 TAB; Start 06/20/18 at 09:00 Patient Own Medication 1 ea MONFELICIADFRI PRN XX Before dialysis Last administered on 06/20/18at 15:14; Admin Dose 1 EA; Start 06/20/18 at 14:30 Petrolatum (Vaseline) 1 applic BID TOP Last administered on 06/24/18at 21:31; Admin Dose 1 APPLIC; Start 06/22/18 at 22:16 Al Hydrox/Mg Hydrox/Simethicone (Mag-Al Plus) 30 ml Q4H PRN PO GASTROINTESTINAL UPSET; Start 06/23/18 at 20:30 Famotidine (Pepcid) 20 mg HS PRN PO GASTROINTESTINAL UPSET Last administered on 06/24/18at 10:15; Admin Dose 20 MG; Start 06/23/18 at 22:00 Lorazepam (Ativan) 1 mg Q6H PRN PO ANXIETY; Start 06/24/18 at 11:30 TANNER DREW NP Jun 25, 2018 11:58
[2018-06-25] MEDS: PETROLATUM 28.35 GM JELLY TOP SCH ×2 (12:17→20:25)
[2018-06-25] MEDS: NYSTATIN 30 GM POWDER BTL TOP SCH ×2 (12:18→20:24)
[2018-06-25] MEDS: COLLAGENASE 5 GM (UD JAR) TOP SCH ×2 (12:19→14:07)
--- NOTE | 2018-06-25 13:07 | PN ---
Date/Time of Note Date/Time of Note DATE: 06/25/18 TIME: 13:06 Subjective Comfortable Objective Vital Signs Date Temp Pulse Resp B/P (MAP) Pulse Ox O2 O2 Flow FiO2 Time Delivery Rate 06/25/18 94 18 93 21 07:50 06/25/18 98.5 135/64 Room Air 07:00 (87) Intake and Output 06/24/18 06/24/18 06/25/18 1515:00 23:00 07:00 IntakeIntake Total 1200 ml 200 ml OutputOutput Total 2800 ml BalanceBalance -1600 ml 200 ml Exam [id number] sba ambulation Results/Medications Result Diagram: 06/24/1861806/24/18618 Results 24 hrs Laboratory Tests Test 06/24/18 21:24 06/24/18 22:01 06/25/18 01:57 06/25/18 07:52 Bedside Glucose 204 211 133 129 Test 06/25/18 12:16 Bedside Glucose 145 Medications Current Medications Docusate Sodium (Colace) 100 mg BID PO Last administered on 06/25/18at 09:42; Admin Dose 100 MG; Start 06/18/18 at 21:00 Senna (Senokot) 1 tab HS PO Last administered on 06/24/18at 21:27; Admin Dose 1 TAB; Start 06/18/18 at 21:00 Lactulose (Enulose) 20 gm DAILY PRN PO CONSTIPATION; Start 06/18/18 at 19:00 Bisacodyl (Dulcolax Supp) 10 mg DAILY PRN [place] CONSTIPATION; Start 06/18/18 at 19:00 Acetaminophen (Tylenol Tab) 650 mg Q4H PRN PO MILD PAIN 1-3 Last administered on 06/23/18at 20:04; Admin Dose 650 MG; Start 06/18/18 at 19:00 Miscellaneous Information (Pending Santyl Order For Wound Care) This patient mcclain... PRN PRN XX WOUND CARE; Start 06/18/18 at 19:00 Hydralazine HCl (Apresoline) 100 mg Q8 PO Last administered on 06/25/18at 06:19; Admin Dose 100 MG; Start 06/18/18 at 20:00 Insulin Aspart (Novolog Insulin Pen) NOVOLOG *MILD* ALGORITHM WITH MEALS BEDTIME SC Last administered on 06/24/18at 22:05; Admin Dose 1 UNIT; Start 06/18/18 at 21:00 Lactobacillus Acidophilus/ Rhamnosus (Culturelle) 1 cap BID PO Last administered on 06/25/18 09:42; Admin Dose 1 CAP; Start 06/18/18 at 21:00 Nystatin (Nystatin Powder) 1 applic BID TOP Last administered on 06/25/18 12:18; Admin Dose 1 APPLIC; Start 06/18/18 at 21:00 Nystatin (Nystatin Powder) 1 applic NOTE PRN TOP NOTE; Start 06/18/18 at 20:00 Albuterol/ Ipratropium (Duoneb) 3 ml Q6H RESP THERAPY HHN Last administered on 06/25/18 07:50; Admin Dose 3 ML; Start 06/18/18 at 21:00 Albuterol/ Ipratropium (Duoneb) 3 ml Q6H RESP THERAPY PRN HHN SHORTNESS OF BREATH; Start 06/18/18 at 20:00 Amlodipine Besylate (Norvasc) 5 mg DAILY PO Last administered on 06/25/18 09:50; Admin Dose 5 MG; Start 06/19/18 at 09:00 Calcium Acetate (Phoslo) 667 mg WITH MEALS PO Last administered on 06/25/18 12:20; Admin Dose 667 MG; Start 06/19/18 at 07:35 Clonidine (Catapres) 0.1 mg Q6H PRN PO SBP ABOVE 170; Start 06/18/18 at 20:00 Collagenase (Santyl) 1 applic Q12 TOP Last administered on 06/25/18 12:19; Admin Dose 1 APPLIC; Start 06/18/18 at 21:00 Collagenase (Santyl) 1 applic NOTE PRN TOP NOTE Last administered on 06/18/18 21:44; Admin Dose 1 APPLIC; Start 06/18/18 at 20:00 Desmopressin Acetate (Ddavp Nasal) 4 spray BID NASAL ; Start 06/18/18 at 22:00 Diphenhydramine HCl (Benadryl) 25 mg Q4H PRN IV ITCHING; Start 06/18/18 at 20:00 Folic Acid (Folic Acid) 1 mg DAILY PO Last administered on 06/25/18 09:43; Admin Dose 1 MG; Start 06/19/18 at 09:00 Guaifenesin (Robitussin Liquid Cup) 100 mg Q6 PRN PO COUGH; Start 06/18/18 at 20:00 Lansoprazole (Prevacid) 30 mg DAILY@06 PO Last administered on 06/25/18at 06:19; Admin Dose 30 MG; Start 06/19/18 at 06:00 Levothyroxine Sodium (Synthroid) 50 mcg BEFORE BREAKFAST PO Last administered on 06/25/18at 06:21; Admin Dose 50 MCG; Start 06/19/18 at 07:00 Lorazepam (Ativan) 1 mg Q6H PRN IV ANXIETY; Start 06/18/18 at 20:00 Morphine Sulfate (morphine) 2 mg Q4H PRN IV SEVERE PAIN LEVEL 7-10; Start 06/18/18 at 20:00 Miscellaneous Medication (Bystolic) 5 mg DAILY PO Last administered on 06/25/18at 09:48; Admin Dose 5 MG; Start 06/19/18 at 09:00 Nitroglycerin (Nitroglycerin 2% Oint) 1 inch Q6 PRN TD CHEST PAIN; Start 06/18/18 at 20:00 Ondansetron HCl (Zofran Inj) 4 mg Q6H PRN IV NAUSEA AND/OR VOMITING; Start 06/18/18 at 20:00 Sertraline HCl (Zoloft) 50 mg DAILY PO Last administered on 06/25/18at 09:43; Admin Dose 50 MG; Start 06/19/18 at 09:00 Sevelamer Carbonate (Renvela) 0.8 gm WITH MEALS PO Last administered on 06/25/18at 12:20; Admin Dose 0.8 GM; Start 06/19/18 at 07:35 Petrolatum (Vaseline) 1 applic NOTE PRN TOP NOTE; Start 06/18/18 at 20:30 Vitamin B Complex/ Vitamin C (Berocca) 1 cap DAILY PO Last administered on 06/25/18at 09:47; Admin Dose 1 CAP; Start 06/19/18 at 09:00 Miscellaneous Information 1 ea NOTE XX ; Start 06/18/18 at 21:30 Glucose (Glutose) 15 gm Q15M PRN PO DECREASED GLUCOSE; Start 06/18/18 at 21:30 Glucose (Glutose) 22.5 gm Q15M PRN PO DECREASED GLUCOSE; Start 06/18/18 at 21:30 Dextrose (D50w Syringe) 25 ml Q15M PRN IV DECREASED GLUCOSE; Start 06/18/18 at 21:30 Dextrose (D50w Syringe) 50 ml Q15M PRN IV DECREASED GLUCOSE; Start 06/18/18 at 21:30 Glucagon (Glucagen) 1 mg Q15M PRN IM DECREASED GLUCOSE; Start 06/18/18 at 21:30 Glucose (Glutose) 15 gm Q15M PRN BUCCAL DECREASED GLUCOSE; Start 06/18/18 at 21:30 Epoetin Festus (Epogen (Esrd)) 10,000 units MoWeFr@17 SC Last administered on 06/23/18 18:43; Admin Dose 10,000 UNITS; Start 06/20/18 at 17:00 Memantine (Namenda) 5 mg DAILY PO Last administered on 06/25/18 09:42; Admin Dose 5 MG; Start 06/20/18 at 09:00 Ascorbic Acid (Vitamin C) 500 mg DAILY PO Last administered on 06/25/18 09:47; Admin Dose 500 MG; Start 06/20/18 at 09:00 Zinc Sulfate (Zinc Sulfate) 220 mg DAILY PO Last administered on 06/25/18 09:47; Admin Dose 220 MG; Start 06/20/18 at 09:00 Multivitamins Therapeutic (Theragran) 1 tab DAILY PO Last administered on 06/25/18 09:43; Admin Dose 1 TAB; Start 06/20/18 at 09:00 Patient Own Medication 1 ea MONWEDFRI PRN XX Before dialysis Last administered on 06/20/18 15:14; Admin Dose 1 EA; Start 06/20/18 at 14:30 Petrolatum (Vaseline) 1 applic BID TOP Last administered on 06/25/18 12:17; Admin Dose 1 APPLIC; Start 06/22/18 at 22:16 Al Hydrox/Mg Hydrox/Simethicone (Mag-Al Plus) 30 ml Q4H PRN PO GASTROINTESTINAL UPSET; Start 06/23/18 at 20:30 Famotidine (Pepcid) 20 mg HS PRN PO GASTROINTESTINAL UPSET Last administered on 06/24/18at 10:15; Admin Dose 20 MG; Start 06/23/18 at 22:00 Lorazepam (Ativan) 1 mg Q6H PRN PO ANXIETY; Start 06/24/18 at 11:30 Assessment/Plan Additional Assessment/Plan Rehab- Critical illness myopathy; Pulmonary debility status post acute respiratory failure, pneumonia Continue treatment plan End-stage renal disease, on hemodialysis. Dysphagia. Diabetes mellitus. Stage III sacral decubitus ulcer- wound care, overall improving KOLBY PEARSON MD Jun 25, 2018 13:07
[2018-06-25 14:00] VITALS: BP 135/63; PULSE 92; RESP 18
--- NOTE | 2018-06-25 15:33 | RADRPT ---
Vent Rate: 101 bpm RR Interval: 0 msec OK Interval: 176 msec QRS Duration: 82 msec QT Interval: 378 msec QTC Interval: 490 msec P-R-T [place]: 59 - 38 - 60 degrees Sinus tachycardia Otherwise normal ECG Electronically Signed By: Jad Rodney
[2018-06-25] MEDS: DICLOFENAC SODIUM 1% GEL 100 GM TUBE TP SCH ×2 (18:04→20:33)
[2018-06-25] MEDS: EPOETIN 10000 UNITS/1 ML INJ (ESRD) SC SCH (18:07)
[2018-06-25 19:18] VITALS: BP 155/63; PULSE 96; RESP 18
--- NOTE | 2018-06-25 19:45 | CONS ---
DATE OF ADMISSION: 06/18/2018 DATE OF CONSULTATION: TYPE OF CONSULTATION: Psychological. REFERRING PHYSICIAN: Kolby Kapoor M.D. CONSULTING PSYCHOLOGIST: Mauro Gutierrez, PhD. REASON FOR CONSULTATION: This consultation was requested by Dr. Eladia Kapoor in order to evaluate t he cognitive and emotional functioning of this patient related to her present medical condition. HISTORY OF PRESENT ILLNESS: The patient is a 78-year-old female. The patient has a history of multi ple medical problems. She was in [facility] for acute respiratory failure and pneumonia in [facility] to congestive heart failure. The patient was also then recently transferred to [facility] for continued care and then was released from [facility] and [facility]. The patient does want to leave the hospital. She is depressed. The patient does worry and is very confused. The patient's 2 daughters were pres ent with the patient's permission during the consultation. They helped interpret for their mother. The mother does speak [place], but was unclear in some words and daughters helped her with that. FAMILY AND SOCIAL HISTORY: The patient lives with one of her daughters and the other daughter [place]. The patient does want to return home after discharge. MEDICATIONS: The patient is currently not on any psychotropic medications. The patient had been on Namenda 5 mg b.i.d. prior to entering the hospital. SUBSTANCE USE: The patient reports that she does not smoke. The patient states that she does not us e alcohol or other drugs. MENTAL STATUS EXAMINATION: APPEARANCE: The patient was seen in her wheelchair. She was seen in it. She is average height and weight. The patient reports that she is both right and left-handed. BEHAVIOR: The patient was cooperative during the consultation. The patient did attempt to answer al l questions presented to her by the interviewer. The patient was confused and had difficulty. She d id need to help with her daughters to answer some of the questions. MOOD AND AFFECT: The patient's mood appears to be slightly depressed. The patient's affect does susie ear to be slightly anxious. PERCEPTION: The patient reports no hallucinations or delusions. The patient was alert to person but not exactly to place, situation and time. MEMORY AND COGNITION: The patient's memory and cognition appear to be impaired. She did have diffic ulty recalling recent and remote events. The patient was unable to name the hospital. The patient w as unable to say the month and the year. The patient was unable to say who the President of the Unit ed States is. The patient's daughter did say that she was diagnosed with mild dementia. Prior to en tering the hospital. INTELLIGENCE: Intelligence appears to fall in the average range when she was functioning adequately. INSIGHT: Poor. JUDGMENT: Poor. THOUGHT CONTENT: The patient is concerned about her present medical condition. The patient does wan t to return home after discharge. She is very concerned about her overall health and ability to func tion. DISCUSSION: The patient possibly could benefit from some cognitive/behavioral psychotherapy while sh e is on the unit. Psychotherapy would focus on her underlying level of worry and depression. The raul tilley is probably going to be discharged relatively soon and will probably unable to be able to avail herself of this service. DIAGNOSTIC IMPRESSION: 1. F06.31, mood disorder due to multiple medical problems with depressive features. 2. F03.90, unspecified dementia without behavioral disturbance. Thank you very much, Dr. Eladia Kapoor, for referring this individual. Please do not hesitate to raudel ivey if you have additional questions. Dictated By: MAURO GUTIERREZ PHD ERIC/LEXUS Conf#: [id number] DID#: [id number] CC: KOLBY KAPOOR MD;*End*
[2018-06-25] MEDS: SENNA TAB PO SCH (20:23)
[2018-06-25] MEDS: FAMOTIDINE 20 MG TAB PO PRN (20:27)
[2018-06-25] MEDS ORDERED: DICLOFENAC SODIUM 1% GEL 100 GM TUBE TP SCH (21:00)
[2018-06-25 21:26] VITALS: BP 188/68; PULSE 109; RESP 18
[2018-06-25] MEDS: ACETAMINOPHEN 325 MG TAB PO PRN (21:27)
[2018-06-25 23:50] VITALS: BP 116/41; PULSE 92; RESP 16
[2018-06-26] VITALS (18 sets, daily range): BP systolic 131–160; BP diastolic 52–90; PULSE 55–93; RESP 16–20
[2018-06-26] MEDS: ALBUTEROL/IPRATROPIUM (NEB) 3 ML AMP HHN SCH ×2 (02:03→08:58)
[2018-06-26] MEDS: LANSOPRAZOLE 30 MG CAP PO SCH (06:48)
[2018-06-26] MEDS: LEVOTHYROXINE 50 MCG TAB PO SCH (06:48)
[2018-06-26] MEDS: SEVELAMER CARBONATE 0.8 GM PKT PO SCH (07:35)
[2018-06-26] MEDS: INSULIN ASPART [NOVOLOG] 3 ML PEN SC SCH ×2 (07:35→11:58)
[2018-06-26] MEDS: DICLOFENAC SODIUM 1% GEL 100 GM TUBE TP SCH (09:00)
[2018-06-26] MEDS: DESMOPRESSIN 0.01% 5 ML NASAL NASAL SCH (09:00)
[2018-06-26] MEDS: PETROLATUM 28.35 GM JELLY TOP SCH (09:00)
--- NOTE | 2018-06-26 09:02 | CONS ---
Consult Date/Type/Reason Admit Date/Time Jun 18, 2018 at 18:06 Initial Consult Date 06/24/18 Type of Consultation: cv Date/Time of Note DATE: 06/26/18 TIME: 09:00 Subjective Interventional cardiology follow-up progress note Subjective: Discussed with the staff Patient with no chest pain or pressure no shoulder pain no palpitation. \ She is feeling OK today breathing is improved as well. She continues to cooperate with physical therapy Patient is on hemodialysis now Objective: General: no acute distress HEENT: NC/AT. pupils are equal. round. NECK: no stridor. CV: RRR. systolic murmur; no gallop or rubs. PULM: no wheezing or rhonchi. GI: SOFT, NT, ND, no rebound or guarding Extremity: trace B/L LE edema. no clubbing. neuro: awake and alert, OX3. Psych: calm and pleasant rectal: deferred EKG done 05/26/2018 which was personally reviewed sinus tachycardia there was no evidence of ischemia Echo cardiogram done 05/27/2018 which was personally reviewed shows: Normal left ventricular systolic function. Normal left ventricular cavity size. Sigmoid septum. Ejection fraction is visually estimated at 60 %. Tissue Doppler/Mitral Doppler indices are consistent with pseudonormalization with mildly elevated left atrial pressure (Stage II diastolic dysfunction). Mild mitral leaflet calcification. Mild mitral annular calcification. Trace mitral regurgitation. No significant aortic stenosis or insufficiency. Aortic cusps appear mildly calcified. Normal appearance of the tricuspid valve. Estimated peak PA systolic pressure 45 mmHg. There is mild tricuspid regurgitation. Objective Vitals Vital Signs Date Temp Pulse Resp B/P (MAP) Pulse Ox O2 O2 Flow FiO2 Time Delivery Rate 06/26/18 98.1 89 18 135/61 97 Room Air 07:00 (85) 06/26/18 21 02:03 Intake and Output 06/25/18 06/25/18 06/26/18 1414:59 22:59 06:59 IntakeIntake Total 950 ml 100 ml BalanceBalance 950 ml 100 ml Results/Medications Result Diagram: 06/24/1861806/24/18618 Results 24 hrs Laboratory Tests Test 06/25/18 12:16 06/25/18 17:52 06/25/18 20:22 06/26/18 07:09 Bedside Glucose 145 144 118 111 Medications Current Medications Docusate Sodium (Colace) 100 mg BID PO Last administered on 06/25/18 20:23; Admin Dose 100 MG; Start 06/18/18 at 21:00 Senna (Senokot) 1 tab HS PO Last administered on 06/25/18 20:23; Admin Dose 1 TAB; Start 06/18/18 at 21:00 Lactulose (Enulose) 20 gm DAILY PRN PO CONSTIPATION; Start 06/18/18 at 19:00 Bisacodyl (Dulcolax Supp) 10 mg DAILY PRN [place] CONSTIPATION Last administered on 06/25/18 21:49; Admin Dose 10 MG; Start 06/18/18 at 19:00 Acetaminophen (Tylenol Tab) 650 mg Q4H PRN PO MILD PAIN 1-3 Last administered on 06/25/18 21:27; Admin Dose 650 MG; Start 06/18/18 at 19:00 Miscellaneous Information ([facility] This patient mcclain... PRN PRN XX WOUND CARE; Start 06/18/18 at 19:00 Hydralazine HCl (Apresoline) 100 mg Q8 PO Last administered on 06/25/18 21:28; Admin Dose 100 MG; Start 06/18/18 at 20:00 Insulin Aspart (Novolog Insulin Pen) NOVOLOG *MILD* ALGORITHM WITH MEALS BEDTIME SC Last administered on 06/24/18at 22:05; Admin Dose 1 UNIT; Start 06/18/18 at 21:00 Lactobacillus Acidophilus/ Rhamnosus (Culturelle) 1 cap BID PO Last administered on 06/25/18 20:23; Admin Dose 1 CAP; Start 06/18/18 at 21:00 Nystatin (Nystatin Powder) 1 applic BID TOP Last administered on 06/25/18 20:24; Admin Dose 1 APPLIC; Start 06/18/18 at 21:00 Nystatin (Nystatin Powder) 1 applic NOTE PRN TOP NOTE; Start 06/18/18 at 20:00 Albuterol/ Ipratropium (Duoneb) 3 ml Q6H RESP THERAPY HHN Last administered on 06/26/18at 02:03; Admin Dose 3 ML; Start 06/18/18 at 21:00 Albuterol/ Ipratropium (Duoneb) 3 ml Q6H RESP THERAPY PRN HHN SHORTNESS OF BREATH; Start 06/18/18 at 20:00 Amlodipine Besylate (Norvasc) 5 mg DAILY PO Last administered on 06/25/18 09:50; Admin Dose 5 MG; Start 06/19/18 at 09:00 Calcium Acetate (Phoslo) 667 mg WITH MEALS PO Last administered on 06/25/18 18:02; Admin Dose 667 MG; Start 06/19/18 at 07:35 Clonidine (Catapres) 0.1 mg Q6H PRN PO SBP ABOVE 170; Start 06/18/18 at 20:00 Collagenase (Santyl) 1 applic Q12 TOP Last administered on 06/25/18 14:07; Admin Dose 1 APPLIC; Start 06/18/18 at 21:00 Collagenase (Santyl) 1 applic NOTE PRN TOP NOTE Last administered on 06/18/18 21:44; Admin Dose 1 APPLIC; Start 06/18/18 at 20:00 Desmopressin Acetate (Ddavp Nasal) 4 spray BID NASAL ; Start 06/18/18 at 22:00 Diphenhydramine HCl (Benadryl) 25 mg Q4H PRN IV ITCHING; Start 06/18/18 at 20:00 Folic Acid (Folic Acid) 1 mg DAILY PO Last administered on 06/25/18 09:43; Ad min Dose 1 MG; Start 06/19/18 at 09:00 Guaifenesin (Robitussin Liquid Cup) 100 mg Q6 PRN PO COUGH; Start 06/18/18 at 20:00 Lansoprazole (Prevacid) 30 mg DAILY@06 PO Last administered on 06/26/18 06:48; Admin Dose 30 MG; Start 06/19/18 at 06:00 Levothyroxine Sodium (Synthroid) 50 mcg BEFORE BREAKFAST PO Last administered on 06/26/18 06:48; Admin Dose 50 MCG; Start 06/19/18 at 07:00 Lorazepam (Ativan) 1 mg Q6H PRN IV ANXIETY; Start 06/18/18 at 20:00 Morphine Sulfate (morphine) 2 mg Q4H PRN IV SEVERE PAIN LEVEL 7-10; Start 06/18/18 at 20:00 Miscellaneous Medication (Bystolic) 5 mg DAILY PO Last administered on 06/25/18 09:48; Admin Dose 5 MG; Start 06/19/18 at 09:00 Nitroglycerin (Nitroglycerin 2% Oint) 1 inch Q6 PRN TD CHEST PAIN; Start 06/18/18 at 20:00 Ondansetron HCl (Zofran Inj) 4 mg Q6H PRN IV NAUSEA AND/OR VOMITING; Start 06/18/18 at 20:00 Sertraline HCl (Zoloft) 50 mg DAILY PO Last administered on 06/25/18at 09:43; Admin Dose 50 MG; Start 06/19/18 at 09:00 Sevelamer Carbonate (Renvela) 0.8 gm WITH MEALS PO Last administered on 06/25/18 18:03; Admin Dose 0.8 GM; Start 06/19/18 at 07:35 Petrolatum (Vaseline) 1 applic NOTE PRN TOP NOTE; Start 06/18/18 at 20:30 Vitamin B Complex/ Vitamin C (Berocca) 1 cap DAILY PO Last administered on 06/25/18at 09:47; Admin Dose 1 CAP; Start 06/19/18 at 09:00 Miscellaneous Information 1 ea NOTE XX ; Start 06/18/18 at 21:30 Glucose (Glutose) 15 gm Q15M PRN PO DECREASED GLUCOSE; Start 06/18/18 at 21:30 Glucose (Glutose) 22.5 gm Q15M PRN PO DECREASED GLUCOSE; Start 06/18/18 at 21:30 Dextrose (D50w Syringe) 25 ml Q15M PRN IV DECREASED GLUCOSE; Start 06/18/18 at 21:30 Dextrose (D50w Syringe) 50 ml Q15M PRN IV DECREASED GLUCOSE; Start 06/18/18 at 21:30 Glucagon (Glucagen) 1 mg Q15M PRN IM DECREASED GLUCOSE; Start 06/18/18 at 21:30 Glucose (Glutose) 15 gm Q15M PRN BUCCAL DECREASED GLUCOSE; Start 06/18/18 at 21:30 Epoetin Festus (Epogen (Esrd)) 10,000 units MoWeFr@17 SC Last administered on 06/25/18at 18:07; Admin Dose 10,000 UNITS; Start 06/20/18 at 17:00 Memantine (Namenda) 5 mg DAILY PO Last administered on 06/25/18at 09:42; Admin Dose 5 MG; Start 06/20/18 at 09:00 Ascorbic Acid (Vitamin C) 500 mg DAILY PO Last administered on 06/25/18 09:47; Admin Dose 500 MG; Start 06/20/18 at 09:00 Zinc Sulfate (Zinc Sulfate) 220 mg DAILY PO Last administered on 06/25/18 09:47; Admin Dose 220 MG; Start 06/20/18 at 09:00 Multivitamins Therapeutic (Theragran) 1 tab DAILY PO Last administered on 06/25/18 09:43; Admin Dose 1 TAB; Start 06/20/18 at 09:00 Patient Own Medication 1 ea MONWEDFRI PRN XX Before dialysis Last administered on 06/20/18 15:14; Admin Dose 1 EA; Start 06/20/18 at 14:30 Petrolatum (Vaseline) 1 applic BID TOP Last administered on 06/25/18 20:25; Admin Dose 1 APPLIC; Start 06/22/18 at 22:16 Al Hydrox/Mg Hydrox/Simethicone (Mag-Al Plus) 30 ml Q4H PRN PO GASTROINTESTINAL UPSET; Start 06/23/18 at 20:30 Famotidine (Pepcid) 20 mg HS PRN PO GASTROINTESTINAL UPSET Last administered on 06/25/18 20:27; Admin Dose 20 MG; Start 06/23/18 at 22:00 Lorazepam (Ativan) 1 mg Q6H PRN PO ANXIETY; Start 06/24/18 at 11:30 Diclofenac Sodium (Voltaren 1% Gel) 2 gm BID TP Last administered on 06/25/18 20:33; Admin Dose 2 GM; Start 06/25/18 at 17:00 Assessment/Plan Hospital Course (Demo Recall) 1. Shoulder pain does not appear to be related to coronary artery disease 2. Hypertension: Under control 3. Renal failure on dialysis 4. Dyslipidemia 5. Status post pneumonia. 6. Debility 7. Upper extremity DVT after PIC line placement 8. History of hypothyroidism on thyroid supplement 8. Anemia Recommendations: Continue with risk factor modifications. Hemodialysis as per renal Continue with blood pressure control Continue physical therapy as tolerated Transfusions as needed with hemodialysis Thank you for his referral. We will continue to follow along with you PRIETO CALERO MD [facility] PRIETO CALERO MD Jun 26, 2018 09:02
--- NOTE | 2018-06-26 09:21 | PN ---
DATE: 06/26/2018 SUBJECTIVE: The patient is stable. No events overnight. OBJECTIVE: VITAL SIGNS: Blood pressure is 135/61, respiration is 18, pulse 89, temperature 98.1. HEENT: Head is normocephalic. NECK: Supple. HEART: Regular rate. LUNGS: Show diminished breath sounds at base. ABDOMEN: Soft, nontender to palpation. No rebound or guarding. EXTREMITIES: Negative for clubbing, cyanosis, no edema. DERMATOLOGIC: No rashes. MUSCULOSKELETAL: No joint effusion. NEUROLOGIC: No change in exam. MEDICATIONS: Reviewed. LABORATORY DATA: Has been reviewed. 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 2. Chest pain, etiology is musculoskeletal, resolved. 3. Left shoulder pain. Etiology is musculoskeletal. Continue medical management. 3. End-stage renal disease. The patient is currently on hemodialysis. 4. Anemia. Continue to monitor hemoglobin and hematocrit levels. Continue Epogen. 5. Mineral bone disorder, monitor calcium and phosphorus levels. 6. Right extremity deep venous thrombosis. Continue to monitor. 7. Acute respiratory failure secondary to pneumonia. The patient is completing antibiotic course. 8. History of heart failure. Continue medical management. 9. Diabetes. Continue current insulin regimen. 10. Dysphagia. Continue modified diet. 11. Urinary tract infection. Patient is completing antibiotic course. 12. Gastrointestinal and deep vein thrombosis prophylaxis. 13. Dementia. Continue Namenda. Dictated By: ARTHUR MARIEE/LEXUS Conf#: [id number] DID#: [id number]
[2018-06-26] MEDS: SERTRALINE 50 MG TAB PO SCH (13:05)
[2018-06-26] MEDS: MULTIVITAMINS THERAPEUTIC TAB PO SCH (13:05)
[2018-06-26] MEDS: NEBIVOLOL 5 MG TAB PO SCH (13:05)
[2018-06-26] MEDS: ASCORBIC ACID 500 MG TAB PO SCH (13:05)
[2018-06-26] MEDS: MEMANTINE 5 MG TAB PO SCH (13:05)
[2018-06-26] MEDS: FOLIC ACID 1 MG TAB PO SCH (13:05)
[2018-06-26] MEDS: VITAMIN B COMPLEX/VIT C CAP PO SCH (13:05)
[2018-06-26] MEDS: LACTOBACILLUS RHAMNOSUS CAP PO SCH (13:06)
[2018-06-26] MEDS: CALCIUM ACETATE 667 MG CAP PO SCH (13:06)
[2018-06-26] MEDS: DOCUSATE SODIUM 100 MG CAP PO SCH (13:06)
[2018-06-26] MEDS: ZINC SULFATE 220 MG CAP PO SCH (13:06)
[2018-06-26] MEDS: AMLODIPINE 5 MG TAB PO SCH (13:07)
[2018-06-26] MEDS: NYSTATIN 30 GM POWDER BTL TOP SCH (13:10)
[2018-06-26] MEDS: COLLAGENASE 5 GM (UD JAR) TOP SCH (13:11)
--- NOTE | 2018-06-26 14:12 | CONS ---
Assessment/Plan Assessment/Plan Hospital Course (Demo Recall) No acute changes Indwelling's: Left upper extremity AV graft Physical examination: This is a fragile well-developed elderly woman who is alert in no distress. Head atraumatic normocephalic sclera nonicteric. Neck is supple. Chest rise symmetrical breath sounds clear. Heart S1-S2 abdomen soft bowel sounds present. Extremities without cyanosis Assessment: 1. Status post UTI 2. Status post pneumonia with respiratory failure 3. CHF 4. Diabetes 5. End-stage renal disease, hemodialysis dependent 6. Dementia Plan: Stable off antibiotics Consultation Date/Type/Reason Admit Date/Time Jun 18, 2018 at 18:06 Initial Consult Date Type of Consult id Date/Time of Note DATE: 06/26/18 TIME: 14:11 Exam/Review of Systems Exam Vitals Vital Signs Date Temp Pulse Resp B/P (MAP) Pulse Ox O2 O2 Flow FiO2 Time Delivery Rate 06/26/18 99.2 90 18 160/76 97 Room Air 12:58 (104) 06/26/18 21 02:03 Intake and Output 06/25/18 06/25/18 06/26/18 1515:00 23:00 07:00 IntakeIntake Total 950 ml 100 ml BalanceBalance 950 ml 100 ml Results Result Diagram: 06/26/18 1041 06/24/18 0619 Results 24hrs Laboratory Tests Test 06/25/18 17:52 06/25/18 20:22 06/26/18 07:09 06/26/18 10:41 Bedside Glucose 144 118 111 Hemoglobin 8.7 L Hematocrit 28.4 L Test 06/26/18 11:55 Bedside Glucose 104 Medications Medication Current Medications Docusate Sodium (Colace) 100 mg BID PO Last administered on 06/26/18at 13:06; Admin Dose 100 MG; Start 06/18/18 at 21:00 Senna (Senokot) 1 tab HS PO Last administered on 06/25/18at 20:23; Admin Dose 1 TAB; Start 06/18/18 at 21:00 Lactulose (Enulose) 20 gm DAILY PRN PO CONSTIPATION; Start 06/18/18 at 19:00 Bisacodyl (Dulcolax Supp) 10 mg DAILY PRN [place] CONSTIPATION Last administered on 06/25/18at 21:49; Admin Dose 10 MG; Start 06/18/18 at 19:00 Acetaminophen (Tylenol Tab) 650 mg Q4H PRN PO MILD PAIN 1-3 Last administered on 06/25/18at 21:27; Admin Dose 650 MG; Start 06/18/18 at 19:00 Miscellaneous Information (Pending Santyl Order For Wound Care) This patient mcclain... PRN PRN XX WOUND CARE; Start 06/18/18 at 19:00 Hydralazine HCl (Apresoline) 100 mg Q8 PO Last administered on 06/26/18at 13:07; Admin Dose 100 MG; Start 06/18/18 at 20:00 Insulin Aspart (Novolog Insulin Pen) NOVOLOG *MILD* ALGORITHM WITH MEALS BEDTIME SC Last administered on 06/24/18 22:05; Admin Dose 1 UNIT; Start 06/18/18 at 21:00 Lactobacillus Acidophilus/ Rhamnosus (Culturelle) 1 cap BID PO Last administered on 06/26/18at 13:06; Admin Dose 1 CAP; Start 06/18/18 at 21:00 Nystatin (Nystatin Powder) 1 applic BID TOP Last administered on 06/26/18at 13:10; Admin Dose 1 APPLIC; Start 06/18/18 at 21:00 Nystatin (Nystatin Powder) 1 applic NOTE PRN TOP NOTE; Start 06/18/18 at 20:00 Albuterol/ Ipratropium (Duoneb) 3 ml Q6H RESP THERAPY HHN Last administered on 06/26/18at 02:03; Admin Dose 3 ML; Start 06/18/18 at 21:00 Albuterol/ Ipratropium (Duoneb) 3 ml Q6H RESP THERAPY PRN HHN SHORTNESS OF BREATH; Start 06/18/18 at 20:00 Amlodipine Besylate (Norvasc) 5 mg DAILY PO Last administered on 06/26/18at 13:07; Admin Dose 5 MG; Start 06/19/18 at 09:00 Calcium Acetate (Phoslo) 667 mg WITH MEALS PO Last administered on 06/26/18at 1 3:06; Admin Dose 667 MG; Start 06/19/18 at 07:35 Clonidine (Catapres) 0.1 mg Q6H PRN PO SBP ABOVE 170; Start 06/18/18 at 20:00 Collagenase (Santyl) 1 applic Q12 TOP Last administered on 06/26/18 13:11; Admin Dose 1 APPLIC; Start 06/18/18 at 21:00 Collagenase (Santyl) 1 applic NOTE PRN TOP NOTE Last administered on 06/18/18at 21:44; Admin Dose 1 APPLIC; Start 06/18/18 at 20:00 Desmopressin Acetate (Ddavp Nasal) 4 spray BID NASAL ; Start 06/18/18 at 22:00 Diphenhydramine HCl (Benadryl) 25 mg Q4H PRN IV ITCHING; Start 06/18/18 at 20:00 Folic Acid (Folic Acid) 1 mg DAILY PO Last administered on 06/26/18 13:05; Admin Dose 1 MG; Start 06/19/18 at 09:00 Guaifenesin (Robitussin Liquid Cup) 100 mg Q6 PRN PO COUGH; Start 06/18/18 at 20:00 Lansoprazole (Prevacid) 30 mg DAILY@06 PO Last administered on 06/26/18 06:48; Admin Dose 30 MG; Start 06/19/18 at 06:00 Levothyroxine Sodium (Synthroid) 50 mcg BEFORE BREAKFAST PO Last administered on 06/26/18 06:48; Admin Dose 50 MCG; Start 06/19/18 at 07:00 Lorazepam (Ativan) 1 mg Q6H PRN IV ANXIETY; Start 06/18/18 at 20:00 Morphine Sulfate (morphine) 2 mg Q4H PRN IV SEVERE PAIN LEVEL 7-10; Start 06/18/18 at 20:00 Miscellaneous Medication (Bystolic) 5 mg DAILY PO Last administered on 06/26/18 13:05; Admin Dose 5 MG; Start 06/19/18 at 09:00 Nitroglycerin (Nitroglycerin 2% Oint) 1 inch Q6 PRN TD CHEST PAIN; Start 06/18/18 at 20:00 Ondansetron HCl (Zofran Inj) 4 mg Q6H PRN IV NAUSEA AND/OR VOMITING; Start 06/18/18 at 20:00 Sertraline HCl (Zoloft) 50 mg DAILY PO Last administered on 06/26/18 13:05; Admin Dose 50 MG; Start 06/19/18 at 09:00 Sevelamer Carbonate (Renvela) 0.8 gm WITH MEALS PO Last administered on 3/20/19at 18:03; Admin Dose 0.8 GM; Start 06/19/18 at 07:35 Petrolatum (Vaseline) 1 applic NOTE PRN TOP NOTE; Start 06/18/18 at 20:30 Vitamin B Complex/ Vitamin C (Berocca) 1 cap DAILY PO Last administered on 06/26/18 13:05; Admin Dose 1 CAP; Start 06/19/18 at 09:00 Miscellaneous Information 1 ea NOTE XX ; Start 06/18/18 at 21:30 Glucose (Glutose) 15 gm Q15M PRN PO DECREASED GLUCOSE; Start 06/18/18 at 21:30 Glucose (Glutose) 22.5 gm Q15M PRN PO DECREASED GLUCOSE; Start 06/18/18 at 21:30 Dextrose (D50w Syringe) 25 ml Q15M PRN IV DECREASED GLUCOSE; Start 06/18/18 at 21:30 Dextrose (D50w Syringe) 50 ml Q15M PRN IV DECREASED GLUCOSE; Start 06/18/18 at 21:30 Glucagon (Glucagen) 1 mg Q15M PRN IM DECREASED GLUCOSE; Start 06/18/18 at 21:30 Glucose (Glutose) 15 gm Q15M PRN BUCCAL DECREASED GLUCOSE; Start 06/18/18 at 21:30 Epoetin Festus (Epogen (Esrd)) 10,000 units MoWeFr@17 SC Last administered on 06/25/18at 18:07; Admin Dose 10,000 UNITS; Start 06/20/18 at 17:00 Memantine (Namenda) 5 mg DAILY PO Last administered on 06/26/18 13:05; Admin Dose 5 MG; Start 06/20/18 at 09:00 Ascorbic Acid (Vitamin C) 500 mg DAILY PO Last administered on 06/26/18 13:05; Admin Dose 500 MG; Start 06/20/18 at 09:00 Zinc Sulfate (Zinc Sulfate) 220 mg DAILY PO Last administered on 06/26/18 13:06; Admin Dose 220 MG; Start 06/20/18 at 09:00 Multivitamins Therapeutic (Theragran) 1 tab DAILY PO Last administered on 06/26/18at 13:05; Admin Dose 1 TAB; Start 06/20/18 at 09:00 Patient Own Medication 1 ea JULIAN PRN XX Before dialysis Last administered on 06/20/18 15:14; Admin Dose 1 EA; Start 06/20/18 at 14:30 Petrolatum (Vaseline) 1 applic BID TOP Last administered on 06/25/18 20:25; Admin Dose 1 APPLIC; Start 06/22/18 at 22:16 Al Hydrox/Mg Hydrox/Simethicone (Mag-Al Plus) 30 ml Q4H PRN PO GASTROINTESTINAL UPSET; Start 06/23/18 at 20:30 Famotidine (Pepcid) 20 mg HS PRN PO GASTROINTESTINAL UPSET Last administered on 06/25/18 20:27; Admin Dose 20 MG; Start 06/23/18 at 22:00 Lorazepam (Ativan) 1 mg Q6H PRN PO ANXIETY; Start 06/24/18 at 11:30 Diclofenac Sodium (Voltaren 1% Gel) 2 gm BID TP Last administered on 06/25/18 20:33; Admin Dose 2 GM; Start 06/25/18 at 17:00 TANNER DREW NP Jun 26, 2018 14:12
--- NOTE | 2018-07-02 13:51 | DS ---
Date/Time of Note Date/Time of Note DATE: 07/02/18 TIME: 13:50 Discharge Summary Admission/Discharge Info Admit Date/Time Jun 18, 2018 at 18:06 Discharge Date/Time Jun 26, 2018 at 14:32 Discharge Diagnosis 1. Critical Illness Myopathy; Pulmonary debility status post acute respiratory failure, pneumonia status post intubation and extubation. 2. Status post CHF. 3. End-stage renal disease, on hemodialysis. 4. Dysphagia. 5. Diabetes mellitus. 6. Stage III sacral decubitus ulcer. 7. Improvements in self-care and mobility. Patient Condition: Good Hospital Course The patient was admitted for comprehensive interdisciplinary rehabilitation and made steady functional gains from a Mod level to a S/SBA level for self care tasks and mobility including ambulating over 150 feet with the use of a FWW. Patient is being discharged home with the recommendation of home health PT, OT and RN follow up. The DC meds are per the medication reconciliation sheet. The discharge equipment recommendations include: FWW, BSC, shower chair. The patient will follow up with PMD upon DC. Home Meds No Active Prescriptions or Reported Meds Primary Care Provider DO MICHEL Barone LIVA L. MD Jul 02, 2018 13:51
== END 2018-06-26 14:32 | disposition home health service (06) | DRG 91 ==
LOC: VRC 18:06
PROVIDERS: ADMIT Physical Medicine & Rehabilitation; ATTEND Internal Medicine Nephrology
PROC: 5A1D70Z Performance of Urinary Filtration, Intermittent, Less than 6 Hours Per Day (ICD-10-PCS; principal; 2018-06-20)
DX: G72.81 Critical illness myopathy (principal); L89.153 Pressure ulcer of sacral region, stage 3; J96.00 Acute respiratory failure, unspecified whether with hypoxia or hypercapnia; J18.9 Pneumonia, unspecified organism; N18.6 End stage renal disease; N39.0 Urinary tract infection, site not specified; I82.4Z1 Acute embolism and thrombosis of unspecified deep veins of right distal lower extremity; I13.11 Hypertensive heart and chronic kidney disease without heart failure, with stage 5 chronic kidney disease, or end stage renal disease; E83.9 Disorder of mineral metabolism, unspecified; D64.9 Anemia, unspecified; E11.22 Type 2 diabetes mellitus with diabetic chronic kidney disease; Z99.2 Dependence on renal dialysis; R13.10 Dysphagia, unspecified; R04.0 Epistaxis; F03.90 Unspecified dementia, unspecified severity, without behavioral disturbance, psychotic disturbance, mood disturbance, and anxiety; I50.9 Heart failure, unspecified; R53.81 Other malaise; E11.9 Type 2 diabetes mellitus without complications; F06.31 Mood disorder due to known physiological condition with depressive features
CPT/HCPCS: 80048; 80053; 81001; 82962; 83735; 84100; 84443; 85014; 85018; 85025; 86706; 87081; 87086; 87340; 90935; 92526; 92610; 93005; 93306; 94640; 94664; 97110; 97112; 97116; 97163; 97166; 97530; 97535; J1815; Q4081